=== PATIENT | female | born 1955 | race American Indian/Alaskan Native ===

== ENCOUNTER 2023-10-30 20:22 | Emergency (ER) | payer MEDICARE, OTHER ==
[2023-10-30 20:54] VITALS: BP 195/107; PULSE 84; RESP 16; TEMP 98.1
--- NOTE | 2023-10-30 23:47 | ED ---
Female Urogenital HPI - General Chief complaint: Vaginal Bleeding Stated complaint: Vaginal Bleeding Time Seen by Provider: 10/30/23 23:08 Source: patient Mode of arrival: ambulatory Limitations: no limitations - History of Present Illness Initial comments: 68-year-old female presenting to the ED with a chief complaint of the problem. History limited as patient does not speak [place] and history translated from daughter available on the phone. Patient states for the past few months has had a bump in her genital region. Reports that this is been ongoing for at least the last 3 months however patient reports some increased swelling and pain today prompting presentation to the ED for further evaluation. Patient notes that she is still able to urinate however intermittently with difficulty. No other complaints. - Related Data Allergies Allergy/AdvReac Type Severity Reaction Status Date / Time No Known Allergies Allergy Verified 10/30/23 20:41 Review of Systems ROS Statement: Those systems with pertinent positive or pertinent negative responses have been documented in the HPI. ROS Other: All systems not noted in ROS Statement are negative. Past Medical History Past Medical History: GI Bleed History of Any Multi-Drug Resistant Organisms: None Reported Past Surgical History: No Surgical Hx Reported Past Psychological History: No Psychological Hx Reported Smoking Status: Current every day smoker Past Alcohol Use History: None Reported Past Drug Use History: None Reported General Exam Limitations: no limitations General appearance: alert, in no apparent distress Neck exam: Present: normal inspection Cardiovascular Exam: Present: regular rate GI/Abdominal exam: Present: soft External exam: Present: other (Exam chaperoned by Demetria ESPOSITO. On external exam apparent large uterine prolapse. No active bleeding. ) Neurological exam: Present: alert, oriented X3 Skin exam: Present: warm, dry Course Vital Signs 10/30/23 20:35 Temperature 98.1 F Pulse Rate 84 Respiratory 16 Rate Blood Pressure 195/107 O2 Sat by Pulse 95 Oximetry Medical Decision Making - Medical Decision Making Was pt. sent in by a medical professional or institution (, PA, ADJUNCT BUSINESS INSTRUCTOR, urgent care, hospital, or jail...) When possible be specific @ -No Did you speak to anyone other than the patient for history (EMS, parent, family, police, friend...)? What history was obtained from this source @ -No Did you review nursing and triage notes (agree or disagree)? Why? @ -I reviewed and agree with nursing and triage notes Were old charts reviewed (outside hosp., previous admission, EMS record, old EKG, old radiological studies, urgent care reports/EKG's, jail records)? Report findings @ -No old charts were reviewed Differential Diagnosis (chest pain, altered mental status, abdominal pain women, abdominal pain men, vaginal bleeding, weakness, fever, dyspnea, syncope, headache, dizziness, GI bleed, back pain, seizure, CVA, palpatations, mental health, musculoskeletal)? @ -Differential Musculoskeletal Muscular strain, contusion, ligament sprain, fracture, arthritis, septic arthritis, bursitis, cellulitis, muscle spasm, nerve compression, DVT, arterial occlusion, herpes zoster, electrolyte abnormality, tumor.... This is not meant to be in all inclusive list EKG interpreted by me (3pts min.). @ -None X-rays interpreted by me (1pt min.). @ -None done CT interpreted by me (1pt min.). @ -None done U/S interpreted by me (1pt. min.). @ -None done What testing was considered but not performed or refused? (CT, X-rays, U/S, labs)? Why? @ -None What meds were considered but not given or refused? Why? @ -None Did you discuss the management of the patient with other professionals (professionals i.e. , PA, ADJUNCT BUSINESS INSTRUCTOR, lab, RT, psych nurse, drug abuse social worker, rehab spec, teacher, chief financial officer, watch caser)? Give summary @ -Case discussed with Dr. Duffy, who agrees with discharge and will see the patient outpatient. Was smoking cessation discussed for >3mins.? @ -No Was critical care preformed (if so, how long)? @ -No Were there social determinants of health that impacted care today? How? (Homelessness, low income, unemployed, alcoholism, drug addiction, trans portation, low edu. Level, literacy, decrease access to med. care, group home, rehab)? @ -No Was there de-escalation of care discussed even if they declined (Discuss DNR or withdrawal of care, Hospice)? DNR status @ -No What co-morbidities impacted this encounter? (DM, HTN, Smoking, COPD, CAD, Cancer, CVA, ARF, Chemo, Hep., AIDS, mental health diagnosis, sleep apnea, morbid obesity)? @ -None Was patient admitted / discharged? Hospital course, mention meds given and route, prescriptions, significant lab abnormalities, going to OR and other pertinent info. @ -Discharge 68-year-old female presenting to the ED with a mass for the past few months recently worsening in pain in severity the past few days. On exam, apparent uterine prolapse. No other findings. No active bleeding on exam. Patient discharged home in stable condition with referral to see TONE ARTIST APPRENTICE. Discussed return precautions with patient who verbalizes agreement. Undiagnosed new problem with uncertain prognosis? @ -No Drug Therapy requiring intensive monitoring for toxicity (Heparin, Nitro, Insulin, Cardizem)? @ -No Were any procedures done? @ -No Diagnosis/symptom? @ -Uterine prolapse Acute, or Chronic, or Acute on Chronic? @ -Acute on chronic Uncomplicated (without systemic symptoms) or Complicated (systemic symptoms)? @ -Uncomplicated Side effects of treatment? @ -No Exacerbation, Progression, or Severe Exacerbation? @ -No Poses a threat to life or bodily function? How? (Chest pain, [place], [place], pneumonia, PE, COPD, DKA, ARF, appy, cholecystitis, CVA, Diverticulitis, Homicidal, Suicidal, threat to staff... and all critical care pts) @ -No Disposition Clinical Impression: Uterine prolapse Disposition: HOME SELF-CARE Condition: Good Instructions (If sedation given, give patient instructions): Uterine Prolapse (ED) Is patient prescribed a controlled substance at d/c from ED?: No Referrals: None,Stated [Primary Care Provider] - 1-2 days Time of Disposition: 23:51
== END 2023-10-31 00:01 | disposition home or self-care (01) ==
LOC: EC 20:22
DX: N81.4 Uterovaginal prolapse, unspecified (principal); F17.200 Nicotine dependence, unspecified, uncomplicated
CPT/HCPCS: 99283

== ENCOUNTER 2024-06-03 16:08 | Inpatient (IN) | payer MEDICARE, OTHER ==
[2024-06-03] MEDS: ETOMIDATE 2 MG/ML 10 ML VIAL IVP STA (16:35)
[2024-06-03] MEDS: SUCCINYLCHOLINE CHLORIDE 200 MG/10 ML VIAL IV STA (16:36)
[2024-06-03] MEDS: fentaNYL (PF) 50 MCG/ML 2 ML AMP IVP STA ×3 (16:43→17:44)
[2024-06-03] MEDS: hydrALAZINE HCL 20 MG/ML 1 ML VIAL IVP STA (16:50)
--- NOTE | 2024-06-03 16:51 | ED ---
Altered Mental Status HPI - General Chief Complaint: Altered Mental Status Stated Complaint: AMS Time Seen by Provider: 06/03/24 16:12 Source: patient Mode of arrival: ambulatory Limitations: no limitations - History of Present Illness Initial Comments: 69-year-old female past medical history of hypertension presenting today for altered mental status status post fall. Patient was at home, at baseline when she went to the bathroom and her family heard a fall. Upon finding her patient was altered. On EMS arrival patient was intermittently agitated, confused. Shallow respirations. Nystagmus noted. Blood glucose 122. They were unable to obtain a blood pressure due to patient's intermittent agitation. Unable to emergency department patient is able to follow commands though has nystagmus, opens eyes to voice, and is breathing spontaneously. Not on blood thinners. History is limited by patient's altered mental status, Marshallese is not her first language - Related Data Home Medications Medication Instructions Recorded Confirmed Losartan/Hydrochlorothiazide 1 tab PO DAILY 06/03/24 06/03/24 [Losartan-Hctz 100-12.5 mg Tab] Allergies Allergy/AdvReac Type Severity Reaction Status Date / Time No Known Allergies Allergy Verified 06/03/24 17:15 Review of Systems ROS Statement: Those systems with pertinent positive or pertinent negative responses have been documented in the HPI. ROS Other: All systems not noted in ROS Statement are negative. Limitations: ROS unobtainable due to patients medical condition Past Medical History Past Medical History: GI Bleed History of Any Multi-Drug Resistant Organisms: None Reported Past Surgical History: No Surgical Hx Reported Past Psychological History: No Psychological Hx Reported Smoking Status: Current every day smoker Past Alcohol Use History: None Reported Past Drug Use History: None Reported General Exam - General Exam Comments Initial Comments: PE: CONSTITUTIONAL: Ill-appearing, appears confused, trying to pull IV though is redirectable, pale SKIN: Cool, dry, no jaundice, hives or petechiae EYES: Pupils are 3 equal round and reactive, horizontal leftward nystagmus, mucous membranes are intact HENT: [normocephalic hematoma to left occiput, moist mucous membranes, oropharynx clear without exudates, no evidence of tongue biting NECK: , C- Collar in place PULMONARY: Clear to auscultation without wheezes, rhonchi, or rales, normal excursion, no accessory muscle use and no stridor CARDIOVASCULAR: Regular rate, rhythm, normal S1 and S2. No appreciated murmurs, rubs or gallops. Strong radial pulses with intact distal perfusion. No lower extremity edema GASTROINTESTINAL: Soft, non-tender, non-distended, no palpable masses, no rebound or guarding. No hepatosplenomegaly GENITOURINARY: Uterine prolapse noted during urinary catheter replacement MUSCULOSKELETAL: Extremities have no gross deformity, no edema, redness, or swelling. NEUROLOGIC:_a/o x 0, GCS 10, confused, able to follow commands, moans intermittently, moves all extremities x 4 without motor or sensory deficit PSYCHIATRIC: Intermittently agitated, otherwise unable to assess Limitations: no limitations Course Vital Signs 06/03/24 06/03/24 06/03/24 16:12 16:40 19:32 Temperature Pulse Rate 70 Respiratory 18 Rate Blood Pressure 181/84 O2 Sat by Pulse 92 L Oximetry Fraction of 100 90 Inspired Oxygen (FIO2) 06/03/24 06/03/24 06/03/24 20:00 20:05 20:28 Temperature 98 F Pulse Rate 64 60 Respiratory 24 24 Rate Blood Pressure 90/55 O2 Sat by Pulse 100 100 Oximetry Fraction of 50 Inspired Oxygen (FIO2) 06/03/24 06/03/24 06/03/24 20:59 21:00 22:00 Temperature 98.0 F Pulse Rate 57 L 64 63 Respiratory 22 25 H Rate Blood Pressure 85/56 95/56 114/74 O2 Sat by Pulse 100 Oximetry Fraction of Inspired Oxygen (FIO2) 06/03/24 06/03/24 06/04/24 23:30 23:41 00:00 Temperature Pulse Rate 63 61 Respiratory 25 H 24 Rate Blood Pressure 107/68 99/63 O2 Sat by Pulse Oximetry Fraction of 50 Inspired Oxygen (FIO2) 06/04/24 06/04/24 00:30 01:00 Temperature Pulse Rate 62 59 L Respiratory 24 25 H Rate Blood Pressure 93/65 88/57 O2 Sat by Pulse Oximetry Fraction of Inspired Oxygen (FIO2) - Reevaluation(s) Reevaluation #1: Sodium 119. Patient currently receiving 1 L normal saline bolus. 06/03/24 17:34 Procedures - Central Line Placement Right Femoral Consent Obtained: emergent situation Patient Placed on Monitor/Pulse Ox: Yes Prep: mask, gown, gloves Central Line Prep: Chlorhexidine scrub, sterile drapes applied Local Anesthesia Used: Lidocaine 1% Amount of Anesthesia Used (mls): 2 Ultrasound Used for Placement: Yes Central Line Lumen Inserted: triple Bloods Obtained for Lab: No Central Line Position: good blood return, all ports aspirated, flushed, capped, sutured in place with 2-0 silk Dressing Applied: Tegaderm Patient Tolerated Procedure: well Complications: none - Intubation Sedative: Etomidate Mg Given: 20 Paralytic: Succinylcholine Mg Given: 100 Laryngoscope: [place] (glidescope) Size: 3 ET Tube Size: 7.5 ET Tube Uncuffed: No Tube Secured Depth (cm): 23 Tube Secured Location: teeth Tube Placement Confirmation: visualized tube passing through cords, equal breath sounds bilaterally, no breath sounds over epigastrium, confirmation by capnometry Patient Tolerated Procedure: well Intubation Complications: none Medical Decision Making - Medical Decision Making Was pt. sent in by a medical professional or institution (, PA, HIGH SCHOOL HOME ECONOMICS TEACHER, urgent care, hospital, or retirement...) When possible be specific @ -[No] Did you speak to anyone other than the patient for history (EMS, parent, family, police, friend...)? What history was obtained from this source @ -Spoke with EMS, patient's son-in-law and Did you review nursing and triage notes (agree or disagree)? Why? @ -[I reviewed and agree with nursing and triage notes] patient suffered fall at home, heard by family, altered when found by family, AMS on arrival to the ED Were old charts reviewed (outside hosp., previous admission, EMS record, old EKG, old radiological studies, urgent care reports/EKG's, retirement records)? Report findings @ -Patient last presented to the emergency department in October of this year for vaginal bleeding Differential Diagnosis (chest pain, altered mental status, abdominal pain women, abdominal pain men, vaginal bleeding, weakness, fever, dyspnea, syncope, headache, dizziness, GI bleed, back pain, seizure, CVA, palpatations, mental health, musculoskeletal)? @ -Differential diagnosis remains broad however top considerations includes traumatic intracranial hemorrhage, ischemic CVA, ruptured aneurysm, seizure, infection, myxedema coma, hepatic encephalopathy, electrolyte disorder, infection, hypoglycemia this is not meant to be an all-inclusive list EKG interpreted by me (3pts min.). @ -Sinus rhythm, rate 63 bpm, QT/QTc 457/464 ms, MI interval 187 ms QRS 106 ms, no ST elevatio, no arrhythmia X-rays interpreted by me (1pt min.). @ -ETT appears to be in appropriate position, no cardiomegaly, consolidations, effusions or pneumothorax CT interpreted by me (1pt min.). @ -No obvious evidence of hemorrhage, mass effect, LVO on imaging, possible area of old infarct along left medial surface of brain U/S interpreted by me (1pt. min.). @ -[None done] What testing was considered but not performed or refused? (CT, X-rays, U/S, labs)? Why? @ -[None] What meds were considered but not given or refused? Why? @ -TXA, nicardipine ordered initially 2/2 concern for traumatic intracranial hemorrhage and/or hypertensive bleed however cancelled ultimately given no evidence of either Did you discuss the management of the patient with other professionals (professionals i.e. , PA, HIGH SCHOOL HOME ECONOMICS TEACHER, lab, RT, psych nurse, social welfare research worker, lens coating technician, teacher, third officer, senior case manager)? Give summary @ -Yes, Dr. Manzano, nephrology, recs noted below, Dr. Maria E Andre, neurology, recs below and Dr. Jeanne Andre, critical care Was smoking cessation discussed for >3mins.? @ -[No] Was critical care preformed (if so, how long)? @ -Yes, 60 minutes, spent assessing patient, obtaining history from surrogates, reassessing patient, ordering and interpreting labs and imaging, ordering treatments, this time was exclusive of time spent on procedures Were there social determinants of health that impacted care today? How? (Homelessness, low income, unemployed, alcoholism, drug addiction, transportation, low edu. Level, literacy, decrease access to med. care, [place] [facility], rehab)? @ -[No] Was there de-escalation of care discussed even if they declined (Discuss DNR or withdrawal of care, Hospice)? @ -[No] What co-morbidities impacted this encounter? (DM, HTN, Smoking, COPD, CAD, Cancer, CVA, ARF, Chemo, Hep., AIDS, mental health diagnosis, sleep apnea, morbid obesity)? @ -Hypertension Was patient admitted / discharged? Hospital course, mention meds given and route, prescriptions, significant lab abnormalities, going to OR and other pertinent info. @ -[hospital course] Patient is a 69-year-old female past medical history of hypertension presenting today for altered mental status. Patient was at her baseline when she went to the bathroom, family heard a fall and found her confused. When EMS arrival patient was intermittently agitated, nystagmus was noted, moaning. C-collar was placed and patient was transferred to the ER. On initial assessment patient is GCS of 10, nystagmus present. During assessment patient's respirations became more shallow and irregular so the decision was made to intubate for airway protection. This was discussed with patient's son-in-law and at bedside. They were agreeable with plan. Level 2 trauma was activated due to u nwitnessed fall and concern that altered mental status was secondary to this. Discussed with Dr. Martin. Patient was intubated and taken to CT scanner. On Preliminary review of CT imaging, I saw no acute evidence of hemorrhage or LVO. Sodium resulted at 119, suspect patient could have seizure and hyponatremia causing her altered mental status. Normal saline bolus running. Will page neurology for further recommendations. Of note patient started on losartn- hydrochlorothiazide which she started taking on Monday. Patient's family denies any history of alcoholism, decreased food intake, excessive amounts of water intake. Spoke with Dr. Peter Andre, neurology, recommends reassessment, if patient still having nystagmus or signs of seizure give Ativan, if continues to seize will need cEEG and transfer. If no seizure activity currently can remain here for EEG tomorrow. On reassessment patient is no longer having nystagmus. Resting comfortably on ventilator. Intubated and sedated. Family at bedside. Updated them to plan for admission, hyponatremia and suspected seizures post h yponatremia. Discussed with Dr. Krause who accepts patient for admission. Discussed with Dr. Basilio Andre, critical care who accepts patient for admission. Patient to remain in ED until bed available in ICU. Recheck sodium, 122 after 1 liter normal saline. Paged nephrology for further recommendations. Discussed with Dr. Manzano, kindly recommends normals saline at 50 cc/hr, raise sodium no higher than 125, repeat BMP at midnight and in the morning. Additionally obtain TSH, serum osmolality and urine osmolality. Patient did become hypotensive with sedation. Cannot give further fluid boluses due to hyponatremia, levophed ordered. CPK elevated 1044, further fluid boluses withheld due to concern for too rapid raise in Na. Maintenance fluids have been ordered. TSH was 11. Patient was mildly hypothermic on arrival, temp 95.1 F. Cody hugger applied. Did consider myxedema coma. Patient has no pretibial edema or rales on exam. Was not hypoglycemic on arrival. Free T4 pending. T4 within normal limits. Administered 100 mcg levothyroxine due to elevated TSH. ICU team requests central line insertion due to continued need for levophed .Central line placed. Please see procedure note. Patient transferred to ICU. Undiagnosed new problem with uncertain prognosis? @ -Yes Drug Therapy requiring intensive monitoring for toxicity (Heparin, Nitro, Insulin, Cardizem)? @ -Fentanyl, propofol, Levophed Were any procedures done? @ -Intubation and central line placement Diagnosis/symptom? @ -Acute encephalopathy secondary to hyponatremia Acute, or Chronic, or Acute on Chronic? @ -Acute Uncomplicated (without systemic symptoms) or Complicated (systemic symptoms)? @ -Complicated Side effects of treatment? @ -[No] Exacerbation, Progression, or Severe Exacerbation? @ -[No] Poses a threat to life or bodily function? How? (Chest pain, [place], [place], pneumonia, PE, COPD, DKA, ARF, appy, cholecystitis, CVA, Diverticulitis, Homicidal, Suicidal, threat to staff... and all critical care pts) @ -Yes, we suspect hyponatremia because patient disease, which caused altered mental status and respiratory depression, if allowed to contiue untreated could progress to coma and - Lab Data Result diagrams: 06/04/24 05:30 06/04/24 13:00 Lab Results 06/03/24 06/03/24 06/03/24 Range/Units 16:31 16:31 16:31 WBC 12.4 H (3.8-10.6) k/uL RBC 4.57 (3.80-5.40) m/uL Hgb 13.6 (11.4-16.0) gm/dL Hct 40.2 (34.0-46.0) % MCV 88.0 (80.0-100.0) fL MCH 29.8 (25.0-35.0) pg MCHC 33.8 (31.0-37.0) g/dL RDW 12.5 (11.5-15.5) % Plt Count 307 (150-450) k/uL MPV 8.2 Neutrophils % 61 % Lymphocytes % 27 % Monocytes % 6 % Eosinophils % 4 % Basophils % 0 % Neutrophils # 7.6 (1.3-7.7) k/uL Lymphocytes # 3.4 (1.0-4.8) k/uL Monocytes # 0.7 (0-1.0) k/uL Eosinophils # 0.5 (0-0.7) k/uL Basophils # 0.0 (0-0.2) k/uL PT 12.6 H (10.0-12.5) sec INR 1.2 H (<1.2) APTT 24.3 (22.0-30.0) sec Sample Site ABG pH (7.35-7.45) ABG pCO2 (35-45) mmHg ABG HCO3 (21-25) mmol/L ABG Total CO2 (19-24) mmol/L ABG O2 Saturation (94-97) % Alex Test FiO2 % Sodium 119 L* (137-145) mmol/L Potassium 3.7 (3.5-5.1) mmol/L Chloride 87 L (98-107) mmol/L Carbon Dioxide 20 L (22-30) mmol/L Anion Gap 12 mmol/L BUN 9 (7-17) mg/dL Creatinine 0.51 L (0.52-1.04) mg/dL Est GFR (CKD-EPI)AfAm >90 (>60 ml/min/1.73 sqM) Est GFR (CKD-EPI)NonAf >90 (>60 ml/min/1.73 sqM) Glucose 112 H (74-99) mg/dL Calcium 8.8 (8.4-10.2) mg/dL Total Bilirubin 0.8 (0.2-1.3) mg/dL AST 50 H (14-36) U/L ALT 22 (4-34) U/L Alkaline Phosphatase 90 (38-126) U/L Ammonia (<30) umol/L Troponin I (0.000-0.034) ng/mL Total Protein 7.0 (6.3-8.2) g/dL Albumin 4.2 (3.5-5.0) g/dL TSH (0.465-4.680) mIU/L Free T4 (0.78-2.19) ng/dL Urine Color Urine Appearance (Clear) Urine pH (5.0-8.0) Ur Specific [place] (1.001-1.035) Urine Protein (Negative) Urine Glucose (UA) (Negative) Urine Ketones (Negative) Urine Blood (Negative) Urine Nitrite (Negative) Urine Bilirubin (Negative) Urine Urobilinogen (<2.0) mg/dL Ur Leukocyte Esterase (Negative) Urine RBC (0-5) /hpf Urine WBC (0-5) /hpf Urine Bacteria (None) /hpf Urine Mucus (None) /hpf Urine Osmolality (400-1100) mOsm/kg Ur Random Sodium (40-220) mmol/L Urine Opiates Screen (NotDetected) Ur Oxycodone Screen (NotDetected) Urine Methadone Screen (NotDetected) Ur Barbiturates Screen (NotDetected) U Tricyclic Antidepress (NotDetected) Ur Phencyclidine Scrn (NotDetected) Ur Amphetamines Screen (NotDetected) U Methamphetamines Scrn (NotDetected) U Benzodiazepines Scrn (NotDetected) Urine Cocaine Screen (NotDetected) U Marijuana (THC) Screen (NotDetected) Serum Alcohol mg/dL 06/03/24 06/03/24 06/03/24 Range/Units 16:31 17:19 17:19 WBC (3.8-10.6) k/uL RBC (3.80-5.40) m/uL Hgb (11.4-16.0) gm/dL Hct (34.0-46.0) % MCV (80.0-100.0) fL MCH (25.0-35.0) pg MCHC (31.0-37.0) g/dL RDW (11.5-15.5) % Plt Count (150-450) k/uL MPV Neutrophils % % Lymphocytes % % Monocytes % % Eosinophils % % Basophils % % Neutrophils # (1.3-7.7) k/uL Lymphocytes # (1.0-4.8) k/uL Monocytes # (0-1.0) k/uL Eosinophils # (0-0.7) k/uL Basophils # (0-0.2) k/uL PT (10.0-12.5) sec INR (<1.2) APTT (22.0-30.0) sec Sample Site ABG pH (7.35-7.45) ABG pCO2 (35-45) mmHg ABG HCO3 (21-25) mmol/L ABG Total CO2 (19-24) mmol/L ABG O2 Saturation (94-97) % Alex Test FiO2 % Sodium (137-145) mmol/L Potassium (3.5-5.1) mmol/L Chloride (98-107) mmol/L Carbon Dioxide (22-30) mmol/L Anion Gap mmol/L BUN (7-17) mg/dL Creatinine (0.52-1.04) mg/dL Est GFR (CKD-EPI)AfAm (>60 ml/min/1.73 sqM) Est GFR (CKD-EPI)NonAf (>60 ml/min/1.73 sqM) Glucose (74-99) mg/dL Calcium (8.4-10.2) mg/dL Total Bilirubin (0.2-1.3) mg/dL AST (14-36) U/L ALT (4-34) U/L Alkaline Phosphatase (38-126) U/L Ammonia (<30) umol/L Troponin I <0.012 (0.000-0.034) ng/mL Total Protein (6.3-8.2) g/dL Albumin (3.5-5.0) g/dL TSH (0.465-4.680) mIU/L Free T4 (0.78-2.19) ng/dL Urine Color Colorless Urine Appearance Clear (Clear) Urine pH 6.5 (5.0-8.0) Ur Specific [place] 1.018 (1.001-1.035) Urine Protein Trace H (Negative) Urine Glucose (UA) Negative (Negative) Urine Ketones Negative (Negative) Urine Blood Trace H (Negative) Urine Nitrite Negative (Negative) Urine Bilirubin Negative (Negative) Urine Urobilinogen <2.0 (<2.0) mg/dL Ur Leukocyte Esterase Negative (Negative) Urine RBC 3 (0-5) /hpf Urine WBC 1 (0-5) /hpf Urine Bacteria Rare H (None) /hpf Urine Mucus Rare H (None) /hpf Urine Osmolality 334 L (400-1100) mOsm/kg Ur Random Sodium (40-220) mmol/L Urine Opiates Screen Not Detected (NotDetected) Ur Oxycodone Screen Not Detected (NotDetected) Urine Methadone Screen Not Detected (NotDetected) Ur Barbiturates Screen Not Detected (NotDetected) U Tricyclic Antidepress Not Detected (NotDetected) Ur Phencyclidine Scrn Not Detected (NotDetected) Ur Amphetamines Screen Not Detected (NotDetected) U Methamphetamines Scrn Not Detected (NotDetected) U Benzodiazepines Scrn Not Detected (NotDetected) Urine Cocaine Screen Not Detected (NotDetected) U Marijuana (THC) Screen Not Detected (NotDetected) Serum Alcohol mg/dL 06/03/24 06/03/24 06/03/24 Range/Units 17:19 17:37 18:40 WBC (3.8-10.6) k/uL RBC (3.80-5.40) m/uL Hgb (11.4-16.0) gm/dL Hct (34.0-46.0) % MCV (80.0-100.0) fL MCH (25.0-35.0) pg MCHC (31.0-37.0) g/dL RDW (11.5-15.5) % Plt Count (150-450) k/uL MPV Neutrophils % % Lymphocytes % % Monocytes % % Eosinophils % % Basophils % % Neutrophils # (1.3-7.7) k/uL Lymphocytes # (1.0-4.8) k/uL Monocytes # (0-1.0) k/uL Eosinophils # (0-0.7) k/uL Basophils # (0-0.2) k/uL PT (10.0-12.5) sec INR (<1.2) APTT (22.0-30.0) sec Sample Site lrad ABG pH 7.42 (7.35-7.45) ABG pCO2 40 (35-45) mmHg ABG HCO3 26 H (21-25) mmol/L ABG Total CO2 27 H (19-24) mmol/L ABG O2 Saturation 98.8 H (94-97) % Alex Test Yes FiO2 100 % Sodium (137-145) mmol/L Potassium (3.5-5.1) mmol/L Chloride (98-107) mmol/L Carbon Dioxide (22-30) mmol/L Anion Gap mmol/L BUN (7-17) mg/dL Creatinine (0.52-1.04) mg/dL Est GFR (CKD-EPI)AfAm (>60 ml/min/1.73 sqM) Est GFR (CKD-EPI)NonAf (>60 ml/min/1.73 sqM) Glucose (74-99) mg/dL Calcium (8.4-10.2) mg/dL Total Bilirubin (0.2-1.3) mg/dL AST (14-36) U/L ALT (4-34) U/L Alkaline Phosphatase (38-126) U/L Ammonia 15 (<30) umol/L Troponin I (0.000-0.034) ng/mL Total Protein (6.3-8.2) g/dL Albumin (3.5-5.0) g/dL TSH (0.465-4.680) mIU/L Free T4 (0.78-2.19) ng/dL Urine Color Urine Appearance (Clear) Urine pH (5.0-8.0) Ur Specific [place] (1.001-1.035) Urine Protein (Negative) Urine Glucose (UA) (Negative) Urine Ketones (Negative) Urine Blood (Negative) Urine Nitrite (Negative) Urine Bilirubin (Negative) Urine Urobilinogen (<2.0) mg/dL Ur Leukocyte Esterase (Negative) Urine RBC (0-5) /hpf Urine WBC (0-5) /hpf Urine Bacteria (None) /hpf Urine Mucus (None) /hpf Urine Osmolality (400-1100) mOsm/kg Ur Random Sodium 71 (40-220) mmol/L Urine Opiates Screen (NotDetected) Ur Oxycodone Screen (NotDetected) Urine Methadone Screen (NotDetected) Ur Barbiturates Screen (NotDetected) U Tricyclic Antidepress (NotDetected) Ur Phencyclidine Scrn (NotDetected) Ur Amphetamines Screen (NotDetected) U Methamphetamines Scrn (NotDetected) U Benzodiazepines Scrn (NotDetected) Urine Cocaine Screen (NotDetected) U Marijuana (THC) Screen (NotDetected) Serum Alcohol mg/dL 06/03/24 Range/Units 18:40 WBC (3.8-10.6) k/uL RBC (3.80-5.40) m/uL Hgb (11.4-16.0) gm/dL Hct (34.0-46.0) % MCV (80.0-100.0) fL MCH (25.0-35.0) pg MCHC (31.0-37.0) g/dL RDW (11.5-15.5) % Plt Count (150-450) k/uL MPV Neutrophils % % Lymphocytes % % Monocytes % % Eosinophils % % Basophils % % Neutrophils # (1.3-7.7) k/uL Lymphocytes # (1.0-4.8) k/uL Monocytes # (0-1.0) k/uL Eosinophils # (0-0.7) k/uL Basophils # (0-0.2) k/uL PT (10.0-12.5) sec INR (<1.2) APTT (22.0-30.0) sec Sample Site ABG pH (7.35-7.45) ABG pCO2 (35-45) mmHg ABG HCO3 (21-25) mmol/L ABG Total CO2 (19-24) mmol/L ABG O2 Saturation (94-97) % Alex Test FiO2 % Sodium 122 L (137-145) mmol/L Potassium 3.2 L (3.5-5.1) mmol/L Chloride 99 (98-107) mmol/L Carbon Dioxide 21 L (22-30) mmol/L Anion Gap 2 mmol/L BUN 8 (7-17) mg/dL Creatinine 0.35 L (0.52-1.04) mg/dL Est GFR (CKD-EPI)AfAm >90 (>60 ml/min/1.73 sqM) Est GFR (CKD-EPI)NonAf >90 (>60 ml/min/1.73 sqM) Glucose 119 H (74-99) mg/dL Calcium 7.8 L (8.4-10.2) mg/dL Total Bilirubin (0.2-1.3) mg/dL AST (14-36) U/L ALT (4-34) U/L Alkaline Phosphatase (38-126) U/L Ammonia (<30) umol/L Troponin I (0.000-0.034) ng/mL Total Protein (6.3-8.2) g/dL Albumin (3.5-5.0) g/dL TSH 11.000 H (0.465-4.680) mIU/L Free T4 1.73 (0.78-2.19) ng/dL Urine Color Urine Appearance (Clear) Urine pH (5.0-8.0) Ur Specific [place] (1.001-1.035) Urine Protein (Negative) Urine Glucose (UA) (Negative) Urine Ketones (Negative) Urine Blood (Negative) Urine Nitrite (Negative) Urine Bilirubin (Negative) Urine Urobilinogen (<2.0) mg/dL Ur Leukocyte Esterase (Negative) Urine RBC (0-5) /hpf Urine WBC (0-5) /hpf Urine Bacteria (None) /hpf Urine Mucus (None) /hpf Urine Osmolality (400-1100) mOsm/kg Ur Random Sodium (40-220) mmol/L Urine Opiates Screen (NotDetected) Ur Oxycodone Screen (NotDetected) Urine Methadone Screen (NotDetected) Ur Barbiturates Screen (NotDetected) U Tricyclic Antidepress (NotDetected) Ur Phencyclidine Scrn (NotDetected) Ur Amphetamines Screen (NotDetected) U Methamphetamines Scrn (NotDetected) U Benzodiazepines Scrn (NotDetected) Urine Cocaine Screen (NotDetected) U Marijuana (THC) Screen (NotDetected) Serum Alcohol <10 mg/dL Disposition Clinical Impression: Acute encephalopathy, Fall, Hyponatremia, Acute respiratory failure Disposition: ADMITTED IP TO THIS HOSP Condition: Serious - Out of Hospital Transfer - Req. Specs Out of Hospital Transfer - Requested Specifics: Intensive Care Unit
[2024-06-03 16:58] LABS: Basophils % (A) 0 %; Eosinophils # (A) 0.5 k/uL (0-0.7); Eosinophils % (A) 4 %; HCT 40.2 % (34.0-46.0); HGB 13.6 gm/dL (11.4-16.0); Lymphocytes # (A) 3.4 k/uL (1.0-4.8); Lymphocytes % (A) 27 %; MCH 29.8 pg (25.0-35.0); MCHC 33.8 g/dL (31.0-37.0); Mean Platelet Volume 8.2; Monocytes # (A) 0.7 k/uL (0-1.0); Monocytes % (A) 6 %; Neutrophils # (A) 7.6 k/uL (1.3-7.7); Neutrophils % (A) 61 %; Platelet Count 307 k/uL (150-450); RBC 4.57 m/uL (3.80-5.40); RDW 12.5 % (11.5-15.5); WBC 12.4 k/uL (3.8-10.6)
[2024-06-03 17:02] LABS: INR 1.2 (<1.2); Partial Thromboplastin Time 24.3 sec (22.0-30.0); Prothrombin Time 12.6 sec (10.0-12.5)
--- NOTE | 2024-06-03 17:14 | XR ---
EXAMINATION TYPE: XR pelvis AP view DATE OF EXAM: 06/03/2024 5:01 PM CLINICAL INDICATION: Female, 69 years old with history of fall; COMPARISON: None TECHNIQUE: XR pelvis AP view, examined in a single projection. FINDINGS/IMPRESSION: 1. Mild step-off of the right inferior pubic ramus correlate with tenderness for fracture. 2. Mild degeneration changes of the hips. 3. The femurs appear intact.
--- NOTE | 2024-06-03 17:15 | XR ---
EXAMINATION TYPE: XR chest 1V portable DATE OF EXAM: 06/03/2024 5:01 PM CLINICAL INDICATION: Female, 69 years old with history of altered mental status; COMPARISON: None TECHNIQUE: XR chest 1V portable Frontal view of the chest. FINDINGS: Lungs/Pleura: There is no evidence of pleural effusion, focal consolidation, or pneumothorax. Pulmonary vascularity: Unremarkable. Heart/mediastinum: Cardiomediastinal silhouette is unremarkable. Musculoskeletal: No acute osseous pathology. Other findings: None IMPRESSION: No acute cardiopulmonary disease/process.
[2024-06-03 17:19] LABS: ALT 22 U/L (4-34); African American GFR (CKD) >90 (>60 ml/min/1.73 sqM); Albumin 4.2 g/dL (3.5-5.0); Anion Gap 12 mmol/L; Blood Urea Nitrogen 9 mg/dL (7-17); Calcium 8.8 mg/dL (8.4-10.2); Carbon Dioxide 20 mmol/L (22-30); Chloride 87 mmol/L (98-107); Glucose 112 mg/dL (74-99); Non-African American GFR(CKD) >90 (>60 ml/min/1.73 sqM); Total Bilirubin 0.8 mg/dL (0.2-1.3)
[2024-06-03 17:26] LABS: Sodium 119 mmol/L (137-145)
[2024-06-03 17:27] LABS: AST 50 U/L (14-36); Alkaline Phosphatase 90 U/L (38-126); Potassium 3.7 mmol/L (3.5-5.1)
--- NOTE | 2024-06-03 17:27 | CT ---
EXAMINATION TYPE: CT brain cspine wo con CT DLP: 1848 mGycm, Automated exposure control for dose reduction was used. DATE OF EXAM: 06/03/2024 5:18 PM COMPARISON: None. CLINICAL INDICATION: Female, 69 years old with history of fall; Fall, +LOC. TECHNIQUE: Brain: Multiple axial CT images of the brain were obtained without IV contrast. Cspine: Axial CT images from the skull base to the inferior aspect of T2 we obtained without intraven ous contrast. Coronal and sagittal reformatted images were also reviewed. . FINDINGS: Brain: Extra-axial spaces: No abnormal extra-axial fluid collections. Ventricular system: Within normal limits Cerebral parenchyma: Encephalomalacia in the left frontal lobe from prior injury. No acute intraparen chymal hemorrhage or mass effect. The muñoz-white junction is well differentiated. Cerebellum: Unremarkable. Mass effect: No evidence of midline shift. Intracranial vasculature: Atherosclerotic calcifications of the intracranial vessels. Soft tissues: Normal. Calvarium/osseous structures: No depressed skull fracture. Paranasal sinuses and mastoid air cells: Clear. Visualized orbits: Orbital contents are intact. Cervical spine: Fracture: None. Osseous structures: Multilevel degenerative disc disease changes with endplate spurring and disc oste ophyte complex's. Vertebral alignment: Within normal limits. Spinal canal/Neural Foramina: Disc osteophyte complexes at C4-C5, C5-C6 and C6-C7 with at least mild spinal canal stenosis. Facet joint uncovertebral joint arthropathy scattered throughout the cervical spine with varying degrees of neural foraminal stenosis. Neck soft tissues: Prevertebral soft tissues are within normal limits. Other: The airway is patent. Atherosclerosis of the carotid bifurcations. Endotracheal nasogastric tubes partially visualized. IMPRESSION: 1. No acute intracranial process. 2. Remote left frontal lobe injury. 3. No evidence of cervical spine fracture. 4. Mild multilevel degenerative disc disease.
--- NOTE | 2024-06-03 17:33 | CT ---
EXAMINATION TYPE: CT angio head neck CT DLP: combined 1848 mGycm, Automated exposure control for dose reduction was used. DATE OF EXAM: 06/03/2024 5:18 PM COMPARISON: Same day CT head. CLINICAL INDICATION: Female, 69 years old with history of fall, new neuro deficit; PHH, Fall, +LOC. TECHNIQUE: Axially acquired helical CT angiogram of the head and neck was obtained with contrast. Axi al images are supplemented with 3D reconstructions and MIP images which were post-processed at an in dependent workstation. NASCET criteria used. Contrast used:65 mL of Isovue 370 without and with IV Contrast, Oral contrast used: None. FINDINGS: Extremely limited exam due to patient motion. Nasogastric and endotracheal tubes present and appear i n satisfactory positions are visualized. CTA HEAD: No evidence of acute intracranial hemorrhage, mass effect, or midline shift. The ventricles, sulci, a nd cisterns are unremarkable. The visualized portions of the internal carotid arteries, middle cerebral arteries, anterior cerebral arteries, and posterior cerebral arteries are patent. The basilar and vertebral arteries are patent. CTA NECK: Right Carotid System: The common carotid and external carotid arteries are patent. There is less than 25% stenosis at the c arotid bifurcation secondary to calcified/noncalcified plaque. The rest of the internal carotid arter y is patent. Left Carotid System: The common carotid and external carotid arteries are patent. There is less than 25% stenosis at the c arotid bifurcation secondary to calcified/noncalcified plaque. The rest of the internal carotid arter y is patent. There is right dominant vertebral artery the left is more diminutive than hypoplastic in caliber. Mul tiple sections of motion limits evaluation the entire length of the vertebral arteries. There is a three-vessel aortic arch. There is calcification at the origin of the left subclavian kaitlin ry with up to 25-50% stenosis. Upper thorax: IMPRESSION: Extremely limited exam due to motion in some areas, given limitations: 1. No evidence of intracranial high-grade stenosis or intracranial aneurysm. 2. No evidence of dissection of the cervical internal carotid arteries or vertebral arteries or any evidence of significant stenosis at the carotid bifurcations.
[2024-06-03 17:40] LABS: Allen Test Performed? Yes
[2024-06-03 17:44] LABS: ABG HCO3 26 mmol/L (21-25); ABG PCO2 40 mmHg (35-45); ABG PH 7.42 (7.35-7.45); ABG TCO2 27 mmol/L (19-24)
[2024-06-03] MEDS: SODIUM CHLORIDE 0.9% 1,000 ML IV ONE (17:45)
[2024-06-03 17:47] LABS: ABG Oxygen Saturation 98.8 % (94-97)
[2024-06-03 17:55] LABS: Amphetamine Screen,Urine Not Detected (NotDetected); Barbiturate Screen,Urine Not Detected (NotDetected); Benzodiazepines Screen,Urine Not Detected (NotDetected); Cocaine Screen,Urine Not Detected (NotDetected); Methadone Screen, Urine Not Detected (NotDetected); Opiate Screen,Urine Not Detected (NotDetected); Oxycodone Screen, Urine Not Detected (NotDetected); Phencyclidine Screen,Urine Not Detected (NotDetected); Tricyclic Antidepressant,Urine Not Detected (NotDetected); Urn Cannabinoid Scrn Not Detected (NotDetected)
--- NOTE | 2024-06-03 17:57 | XR ---
EXAMINATION TYPE: XR chest 1V portable DATE OF EXAM: 06/03/2024 5:45 PM CLINICAL INDICATION: Female, 69 years old with history of intubation PHH COMPARISON: Chest radiographs from 06/03/2024 TECHNIQUE: XR chest 1V portable Frontal view of the chest. FINDINGS: Lungs/Pleura: There is no evidence of pleural effusion, focal consolidation, or pneumothorax. Pulmonary vascularity: Unremarkable. Heart/mediastinum: Cardiomediastinal silhouette is unremarkable. Musculoskeletal: No acute osseous pathology. Other findings: None Lines/Tubes: Endotracheal tube with distal tip 3.6 cm above the jignesh. Nasogastric tube with its distal tip and side-port projecting under the diaphragm. IMPRESSION: 1. Appropriate placement of support lines and tubes. 2. Stable exam
[2024-06-03 18:02] LABS: Appearance,Urine Clear (Clear); Bacteria,Urine Rare /hpf; Bilirubin,Urine Negative (Negative); Blood,Urine Trace (Negative); Color,Urine Colorless; Glucose,Urine (UA) Negative (Negative); Ketones,Urine Negative (Negative); Leukocyte Esterase,Urine Negative (Negative); Mucus,Urine Rare /hpf; Nitrite,Urine Negative (Negative); PH, Urine 6.5 (5.0-8.0); Protein,Urine Trace (Negative); RBC,Urine 3 /hpf (0-5); Specific Gravity,Urine 1.018 (1.001-1.035); Urobilinogen,Urine <2.0 mg/dL (<2.0); WBC,Urine 1 /hpf (0-5)
[2024-06-03] MEDS: MAGNESIUM SULFATE-D5W PMX 1 GM in DEXTROSE/WATER 1 100ML.BAG IVPB SCH (18:11)
[2024-06-03] MEDS: TRANEXAMIC ACID 1,000 MG in SODIUM CHLORIDE 0.9% 250 ML IV ONE (18:24)
[2024-06-03] MEDS: niCARdipine 20 MG in SODIUM CHLORIDE 0.9% 192 ML IV SCH (18:24)
[2024-06-03] MEDS: TRANEXAMIC 1,000 MG/100ML-NACL 1,000 MG in SALINE 1 100ML.BAG IV STA (18:24)
[2024-06-03] MEDS: THIAMINE 100 MG/ML 2 ML VIAL IM STA (18:29)
[2024-06-03 19:20] LABS: African American GFR (CKD) >90 (>60 ml/min/1.73 sqM); Alcohol <10 mg/dL; Anion Gap 2 mmol/L; Blood Urea Nitrogen 8 mg/dL (7-17); Calcium 7.8 mg/dL (8.4-10.2); Carbon Dioxide 21 mmol/L (22-30); Chloride 99 mmol/L (98-107); Glucose 119 mg/dL (74-99); Non-African American GFR(CKD) >90 (>60 ml/min/1.73 sqM); Potassium 3.2 mmol/L (3.5-5.1); Sodium 122 mmol/L (137-145)
[2024-06-03] MEDS ORDERED: Magnesium Replacement Protocol 1 EACH MISC MISCELLANE PRN (19:27)
[2024-06-03] MEDS ORDERED: Phosphorus Replacement Protoco 1 EACH MISC MISCELLANE PRN (19:27)
[2024-06-03] MEDS ORDERED: Potassium Replacement Protocol 1 EACH MISC MISCELLANE PRN (19:27)
[2024-06-03] MEDS ORDERED: MORPHINE SULFATE 2 MG/ML SYRINGE IV PRN (19:27)
[2024-06-03] MEDS ORDERED: NALOXONE 0.4 MG/ML 1 ML VIAL IV PRN (19:27)
[2024-06-03] MEDS ORDERED: LORazepam 2 MG/ML INJ IV PRN (19:27)
[2024-06-03 19:51] LABS: ABG PCO2 51 mmHg (35-45); ABG PH 7.33 (7.35-7.45); ABG PO2 379 mmHg (83-108); Allen Test Performed? Yes
[2024-06-03 19:52] LABS: ABG Base Excess 0.2 mmol/L; ABG HCO3 27 mmol/L (21-25); ABG TCO2 28 mmol/L (19-24)
[2024-06-03] MEDS: SODIUM CHLORIDE 0.9% 1,000 ML IV SCH (20:16)
[2024-06-03] MEDS: fentaNYL (PF). 1,000 MCG in SODIUM CHLORIDE 0.9% 80 ML IV SCH (20:17)
[2024-06-03] MEDS: NOREPINEPHRINE 4 MG in SODIUM CHLORIDE 0.9% 250 ML IV ONE (20:27)
[2024-06-03] MEDS: ACETAMINOPHEN IV (For NPO) 1,000 MG in SALINE 1 100ML.BAG IVPB ONE (20:34)
[2024-06-03 21:36] LABS: T4, Free (Free Thyroxine) 1.73 ng/dL (0.78-2.19)
[2024-06-04] MEDS: SODIUM CHLORIDE 0.9% 1,000 ML IV ONE (00:21)
[2024-06-04] MEDS: MIDAZOLAM 2 MG/2 ML VIAL IV ONE (00:35)
[2024-06-04] MEDS: fentaNYL (PF) 50 MCG/ML 2 ML AMP IVP STA (00:38)
[2024-06-04 01:14] LABS: Glucose,Whole Blood 140 mg/dL (70-110)
[2024-06-04] MEDS: NOREPINEPHRINE 32 MG in SODIUM CHLORIDE 0.9% 218 ML IV SCH (01:52)
[2024-06-04 02:49] LABS: African American GFR (CKD) >90 (>60 ml/min/1.73 sqM); Anion Gap 9 mmol/L; Blood Urea Nitrogen 9 mg/dL (7-17); Calcium 8.5 mg/dL (8.4-10.2); Carbon Dioxide 20 mmol/L (22-30); Chloride 94 mmol/L (98-107); Glucose 126 mg/dL (74-99); Non-African American GFR(CKD) >90 (>60 ml/min/1.73 sqM); Potassium 3.3 mmol/L (3.5-5.1); Sodium 123 mmol/L (137-145)
[2024-06-04] MEDS: VASOPRESSIN 60 UNIT in SODIUM CHLORIDE 0.9% 150 ML IV SCH (03:19)
[2024-06-04] MEDS: POTASSIUM BICARBONATE/CIT AC 20 MEQ TABLET.EFF NG-TUBE SCH (03:32)
[2024-06-04] MEDS: LEVOTHYROXINE IVP 100 MCG/5 ML VIAL IV STA (03:33)
--- NOTE | 2024-06-04 04:00 | P.CNPUL ---
History of Present Illness Consult date: 06/04/24 Requesting physician: Areli Nunez Reason for consult: other (ICU management) Chief complaint: Altered mental status, fall History of present illness: Patient is a 69-year-old white female. Past medical history is largely unknown, as the patient is currently intubated mechanical ventilator and unable to participate in interview. Apparently, patient was at home in the bathroom, family heard a crashing sound. Patient was found on the ground, altered. She was brought in via EMS, noted to be agitated and confused by ER provider. She had shallow respirations. Patient was ultimately intubated for airway protection. Initial CT of the brain and C-spine did not show any acute intracranial process. Remote left frontal lobe injury. No evidence of cervical spine fracture. Brain CTA does not show any evidence of intracranial high-grade stenosis or intracranial aneurysm. No evidence of dissection of the cervical internal carotid arteries or vertebral arteries or significant stenosis at the carotid bifurcations. Patient was felt to have possible seizure-like activity. Nystagmus was noted. She did receive a dose of Ativan in the emergency department. I am evaluating this patient in trauma bay 2. She is currently intubated mechanical ventilator. Postintubation chest x-ray shows the endotracheal tube approximately 3.6 cm above the jignesh. Nasogastric tube with the distal tip projecting underneath the diaphragm. No focal infiltrates or evidence of pneumonia. No obvious acute cardiopulmonary disease process. Postintubation chest x-ray shows a PaO2 of 379, pCO2 of 51, pH of 7.33. Current ventilator settings are assist-control, respiratory rate 16, tidal volume 350, FiO2 was dropped to 50%, and PEEP of 5. She is breathing slightly above set the rate around 18 breaths/min. No significant airway secretions. Peak pressure 23. She is sedated on a combination of propofol which is infusing at 35 mcg/kg/min as well as fentanyl at 2 mcg/kg/h. No obvious clinical signs of seizure activity. She awakes to tactile stimuli, but then falls quickly back to sleep. Does not follow any commands. Moves all 4 extremities. She is requiring high-dose norepinephrine which is currently running at 0.19 mcg/kg/min. ER physician is going to insert a central line catheter. She did receive a 1 L normal saline bolus in the emergency department. She was noted to be hyponatremic, suspect hypovolemic. Sodium level on arrival 119. Appropriate osmolality and urine studies pending. Normal saline infusing at 50 mL/h. Most recent BMP: Sodium 122, potassium 3.2, chloride 99, serum bicarb 21, BUN 8, creatinine 0.35, glucose 119. Creatinine kinase 1044. Ammonia 15. Troponin less than 0.012. TSH 11, free T4 1.73. Urinalysis not very remarkable for infection. Urine drug screen negative. Serum alcohol level less than 10. CBC: WBC count 12.4, hemoglobin 13.6, hematocrit 40.2, platelets 307. X-ray of the pelvis showed mild step-off of the right inferior pubic ramus concerning for possible fracture. Patient's condition is currently critical. Patient will be admitted to the intensive care unit as soon as bed available. Review of Systems ROS unobtainable: due to endotracheal tube Past Medical History Past Medical History: GI Bleed Additional Past Medical History / Comment(s): PROLAPSED UTERUS History of Any Multi-Drug Resistant Organisms: None Reported Past Surgical History: No Surgical Hx Reported Past Psychological History: No Psychological Hx Reported Smoking Status: Current every day smoker Past Alcohol Use History: None Reported Past Drug Use History: None Reported Medications and Allergies Home Medications Medication Instructions Recorded Confirmed Type Losartan/Hydrochlorothiazide 1 tab PO DAILY 06/03/24 06/03/24 History [Losartan-Hctz 100-12.5 mg Tab] Allergies Allergy/AdvReac Type Severity Reaction Status Date / Time No Known Allergies Allergy Verified 06/03/24 17:15 Physical Exam Vitals: Vital Signs Temp Pulse Resp BP Pulse Ox FiO2 06/04/24 02:00 55 L 16 114/80 06/04/24 01:00 59 L 25 H 88/57 06/04/24 00:30 62 24 93/65 06/04/24 00:00 61 24 99/63 06/03/24 23:41 50 06/03/24 23:30 63 25 H 107/68 06/03/24 22:00 63 114/74 100 06/03/24 21:00 64 25 H 95/56 06/03/24 20:59 98.0 F 57 L 22 85/56 06/03/24 20:28 50 06/03/24 20:05 98 F 60 24 100 06/03/24 20:00 64 24 90/55 100 06/03/24 19:32 90 06/03/24 16:46 100 06/03/24 16:40 100 06/03/24 16:12 70 18 181/84 92 L Intake and Output 06/03/24 06/03/24 06/04/24 14:59 22:59 06:59 Intake Total 174.775 215.613 Output Total 700 Balance 174.775 -484.387 Intake: Intake, IV Titration 174.775 215.613 Amount Norepinephrine 4 mg In 94.107 Sodium Chloride 0.9% 250 ml @ 0.03 MCG/KG/MIN 8. 295 mls/hr IV .Q24H [facility] Rx#:[id number] Sodium Chloride 0.9% 1, 100 000 ml @ 50 mls/hr IV . Q20H [facility] Rx#:[id number] fentaNYL (PF). 1,000 mcg 21.409 44.996 In Sodium Chloride 0.9% 80 ml @ 0.5 MCG/KG/HR 3. 629 mls/hr IV .Q24H [facility] Rx#:[id number] propofoL 1,000 mg In 59.259 70.617 Empty Bag 1 bag @ 20 MCG/ KG/MIN 8.709 mls/hr IV . [id number] [facility] Rx#:[id number] Output: Urine 700 Other: Weight 72.575 kg 72.575 kg GENERAL EXAM: Sedated 69-year-old white female, intubated mechanical ventilator, awakens to tactile stimuli, no clinical seizure-like activity noted. HEAD: Normocephalic and atraumatic EYES: Normal reaction of pupils, equal size. Pupils midline. No nystagmus. NOSE: Clear with pink turbinates. No obvious signs of tongue biting. THROAT: No erythema or exudates. NECK: No masses, no JVD. CHEST: No chest wall deformity. LUNGS: Equal air entry with no crackles, wheeze, rhonchi or dullness. Intubated to the mechanical ventilator. CVS: S1 and S2 normal with no audible murmur, regular rhythm. No extra heart sounds ABDOMEN: No hepatosplenomegaly, active bowel sounds, no guarding or rigidity. SPINE: No scoliosis or deformity SKIN: No rashes. Complete urogenital prolapse CENTRAL NERVOUS SYSTEM: Sedated, opens eyes to tactile stimuli, withdraws from pain in all 4 extremities. No obvious seizure-like activity noted. EXTREMITIES: There is no peripheral edema, clubbing, or cyanosis. Peripheral pulses are intact. Results - Laboratory Findings CBC and BMP: 06/03/24 16:31 06/04/24 01:33 ABG ABG pH 7.33 (7.35-7.45) L 06/03/24 19:36 ABG pCO2 51 mmHg (35-45) H 06/03/24 19:36 ABG pO2 379 mmHg (83-108) H 06/03/24 19:36 ABG O2 Saturation 100.0 % (94-97) H 06/03/24 19:36 PT/INR, D-dimer PT 12.6 sec (10.0-12.5) H 06/03/24 16:31 INR 1.2 (<1.2) H 06/03/24 16:31 Abnormal lab findings: Abnormal Labs 06/03/24 06/03/24 06/03/24 16:31 16:31 16:31 WBC 12.4 H PT 12.6 H INR 1.2 H ABG pH ABG pCO2 ABG pO2 ABG HCO3 ABG Total CO2 ABG O2 Saturation Sodium 119 L* Potassium Chloride 87 L Carbon Dioxide 20 L Creatinine 0.51 L Glucose 112 H POC Glucose (mg/dL) Calcium AST 50 H Creatine Kinase TSH Urine Protein Urine Blood Urine Bacteria Urine Mucus 06/03/24 06/03/24 06/03/24 17:19 17:37 18:40 WBC PT INR ABG pH ABG pCO2 ABG pO2 ABG HCO3 26 H ABG Total CO2 27 H ABG O2 Saturation 98.8 H Sodium 122 L Potassium 3.2 L Chloride Carbon Dioxide 21 L Creatinine 0.35 L Glucose 119 H POC Glucose (mg/dL) Calcium 7.8 L AST Creatine Kinase TSH 11.000 H Urine Protein Trace H Urine Blood Trace H Urine Bacteria Rare H Urine Mucus Rare H 06/03/24 06/03/24 06/04/24 19:36 21:17 01:13 WBC PT INR ABG pH 7.33 L ABG pCO2 51 H ABG pO2 379 H ABG HCO3 27 H ABG Total CO2 28 H ABG O2 Saturation 100.0 H Sodium Potassium Chloride Carbon Dioxide Creatinine Glucose POC Glucose (mg/dL) 140 H Calcium AST Creatine Kinase 1044 H* TSH Urine Protein Urine Blood Urine Bacteria Urine Mucus - Diagnostic Findings Chest x-ray: image reviewed Assessment and Plan Assessment: Fall, Initial CT of the brain and C-spine did not show any acute intracranial process. Remote left frontal lobe injury. No evidence of cervical spine fracture. Brain CTA does not show any evidence of intracranial high-grade stenosis or intracranial aneurysm. No evidence of dissection of the cervical internal carotid arteries or vertebral arteries or significant stenosis at the carotid bifurcations. X-ray of the pelvis showed mild step-off of the right inferior pubic ramus concerning for possible fracture. Altered mental status, unable to rule out possible seizure, intubated for airway protection in the emergency department Mechanical ventilator management Hyponatremia, possible hypovolemic Hypotension and shock, currently requiring vasopressors in the form of norepinephrine Sinus bradycardia, possibly secondary to medication effect and propofol Subclinical hypothyroidism, with elevated TSH level and normal free T4, given a dose of IV push Synthroid in the emergency department Hypokalemia, being replaced per protocol Female genital prolapse unspecified Plan: Medications, labs, imaging reviewed Continue on mechanical ventilator at this time with current ventilator settings Chest x-ray noted. ABGs noted. No further seizure activity at this time. As needed Ativan ordered in case needed for seizure termination. Initiate seizure precautions. Neurology consulted. EEG ordered for the morning. CT of the brain noted. Hyponatremia to be managed by nephrology. Urine and osmolality studies pending. Patient remains hypotensive, currently requiring vasopressor support. Patient was given additional liter crystalloid fluid bolus. Central line access established by ER provider. Will also insert arterial line for continuous BP monitoring. No definitive evidence of infection/sepsis Obtain transthoracic echocardiogram Protonix for GI prophylaxis Heparin for DVT prophylaxis Patient's condition is currently critical, and she is being admitted to the intensive care unit. We will continue to follow and further recommendations are forthcoming. I have personally seen and examined the patient, performed the documentation and the assessment and plan as written. Number of minutes spent on the visit:20 Time with Patient: Greater than 30
--- NOTE | 2024-06-04 04:03 | P.PCN ---
Date of Procedure: 06/04/24 Preoperative Diagnosis: Hypotension and shock Postoperative Diagnosis: Hypotension and shock Procedure(s) Performed: Insertion of a right wrist radial arterial line Indications for Procedure: Continuous blood pressure monitoring and frequent blood draws Description of Procedure: Informed consent was obtained, and a procedural timeout was performed . The patient was placed in supine position. The right radial region was prepared in a sterile fashion, and a sterile drape was applied. The right radial artery was palpated, easily cannulated, and a guidewire was placed. A Cook catheter was inserted over the guidewire, and the guidewire was removed. There was good arterial blood flow, good arterial waveform, and no complications. The line was secured with using a 3-0 silk suture.
[2024-06-04 04:11] LABS: ABG Base Excess -1.6 mmol/L; ABG HCO3 25 mmol/L (21-25); ABG Oxygen Saturation 99.6 % (94-97); ABG PCO2 48 mmHg (35-45); ABG PH 7.33 (7.35-7.45); ABG PO2 182 mmHg (83-108); ABG TCO2 26 mmol/L (19-24)
[2024-06-04 04:17] LABS: Allen Test Performed? No
[2024-06-04 05:41] LABS: Basophils % (A) 0 %; Eosinophils # (A) 0.3 k/uL (0-0.7); Eosinophils % (A) 2 %; HCT 38.4 % (34.0-46.0); HGB 12.8 gm/dL (11.4-16.0); Lymphocytes # (A) 1.6 k/uL (1.0-4.8); Lymphocytes % (A) 13 %; MCHC 33.2 g/dL (31.0-37.0); MCV 90.3 fL (80.0-100.0); Mean Platelet Volume 8.1; Monocytes # (A) 0.6 k/uL (0-1.0); Monocytes % (A) 5 %; Neutrophils # (A) 9.4 k/uL (1.3-7.7); Neutrophils % (A) 79 %; Platelet Count 295 k/uL (150-450); RBC 4.25 m/uL (3.80-5.40); RDW 12.9 % (11.5-15.5)
[2024-06-04 05:54] LABS: African American GFR (CKD) >90 (>60 ml/min/1.73 sqM); Anion Gap 5 mmol/L; Blood Urea Nitrogen 10 mg/dL (7-17); Calcium 8.6 mg/dL (8.4-10.2); Carbon Dioxide 25 mmol/L (22-30); Chloride 94 mmol/L (98-107); Glucose 114 mg/dL (74-99); Magnesium 2.6 mg/dL (1.6-2.3); Non-African American GFR(CKD) >90 (>60 ml/min/1.73 sqM); Phosphorus 4.7 mg/dL (2.5-4.5); Potassium 4.9 mmol/L (3.5-5.1); Sodium 124 mmol/L (137-145)
[2024-06-04 05:56] LABS: Glucose,Whole Blood 104 mg/dL (70-110)
--- NOTE | 2024-06-04 07:24 | XR ---
EXAMINATION TYPE: XR chest 1V DATE OF EXAM: 06/04/2024 COMPARISON: 06/03/2024 HISTORY: 69-year-old female intubated TECHNIQUE: Single frontal view of the chest is obtained. FINDINGS: ET and NG tubes are satisfactory. Heart upper limits of normal in size. Similar strandy at electasis at the left lower lung. No other consolidation or pleural effusion. IMPRESSION: Stable exam with some strandy left basilar atelectasis.
[2024-06-04] MEDS ORDERED: HYDROmorphone 1 MG/ML 1 ML SYRINGE IVP PRN (08:35)
[2024-06-04 09:05] LABS: African American GFR (CKD) >90 (>60 ml/min/1.73 sqM); Anion Gap 1 mmol/L; Blood Urea Nitrogen 8 mg/dL (7-17); Calcium 8.3 mg/dL (8.4-10.2); Carbon Dioxide 25 mmol/L (22-30); Chloride 100 mmol/L (98-107); Glucose 118 mg/dL (74-99); Non-African American GFR(CKD) >90 (>60 ml/min/1.73 sqM); Potassium 4.1 mmol/L (3.5-5.1); Sodium 126 mmol/L (137-145)
[2024-06-04] MEDS: PANTOPRAZOLE 40 MG/10 ML VIAL IV SCH (09:05)
[2024-06-04] MEDS: HEPARIN SODIUM,PORCINE 5,000 UNIT/ML 1 ML VIAL SQ SCH (09:05)
--- NOTE | 2024-06-04 10:16 | P.NPCON ---
History of Present Illness - Reason for Consult hyponatremia - History of Present Illness Reason for consultation: Hyponatremia History of present illness: Patient is a 69-year-old female seen in renal consultation for hyponatremia. Patient was brought to the hospital due to altered mental status. Patient sustained a fall at home. There was also concern for seizure. It is noted the patient was taking thiazide diuretic outpatient. Sodium level on admission was 119 dated June 03, 2024 at 4:31 PM. Patient received 1 L bolus of normal saline and repeat sodium level was 122. She has been receiving normal saline at 50 cc an hour since then sodium level at 845 this morning was 126. Patient is c urrently intubated. She is also on Levophed. Potassium was low initially and was replaced. It was 4.1 this morning. Vital signs are stable. On vasopressor support. General: Resting in bed. HEENT: Intubated. LUNGS: No audible rhonchi or wheezes. HEART: Rate and Rhythm are regular. ABDOMEN: Nontender. EXTREMITITES: No edema. Past Medical History Past Medical History: GI Bleed Additional Past Medical History / Comment(s): PROLAPSED UTERUS History of Any Multi-Drug Resistant Organisms: None Reported Past Surgical History: No Surgical Hx Reported Past Psychological History: No Psychological Hx Reported Smoking Status: Current every day smoker Past Alcohol Use History: None Reported Past Drug Use History: None Reported Medications and Allergies Home Medications Medication Instructions Recorded Confirmed Type Losartan/Hydrochlorothiazide 1 tab PO DAILY 06/03/24 06/03/24 History [Losartan-Hctz 100-12.5 mg Tab] Allergies Allergy/AdvReac Type Severity Reaction Status Date / Time No Known Allergies Allergy Verified 06/03/24 17:15 Physical Exam Vitals: Vital Signs Temp Pulse Pulse Resp BP Pulse Ox FiO2 06/04/24 07:42 40 06/04/24 07:00 59 L 15 100 06/04/24 06:45 60 15 100 06/04/24 06:30 61 16 100 06/04/24 06:15 61 15 100 06/04/24 06:00 60 15 100 06/04/24 05:45 59 L 14 100 06/04/24 05:30 61 14 100 06/04/24 05:15 57 L 16 06/04/24 05:00 58 L 14 100 06/04/24 04:45 57 L 15 99 06/04/24 04:36 40 06/04/24 04:30 55 L 15 100 06/04/24 04:15 52 L 16 100 06/04/24 04:00 97.3 F L 51 L 51 L 16 100 50 06/04/24 03:59 50 06/04/24 03:45 50 L 15 100 06/04/24 03:30 49 L 14 100 06/04/24 03:23 49 L 16 100 06/04/24 02:00 97.3 F L 55 L 16 114/80 06/04/24 01:00 59 L 25 H 88/57 06/04/24 00:30 62 24 93/65 06/04/24 00:00 61 24 99/63 06/03/24 23:41 50 06/03/24 23:30 63 25 H 107/68 06/03/24 22:00 63 114/74 100 06/03/24 21:00 64 25 H 95/56 06/03/24 20:59 98.0 F 57 L 22 85/56 06/03/24 20:28 50 06/03/24 20:05 98 F 60 24 100 06/03/24 20:00 64 24 90/55 100 06/03/24 19:32 90 06/03/24 16:46 100 06/03/24 16:40 100 06/03/24 16:12 70 18 181/84 92 L Intake and Output 06/03/24 06/04/24 06/04/24 22:59 06:59 14:59 Intake Total 174.775 461.355 99.475 Output Total 890 45 Balance 174.775 -428.645 54.475 Intake: Intake, IV Titration 174.775 461.355 99.475 Amount Norepinephrine 32 mg In 22.227 Sodium Chloride 0.9% 218 ml @ 0.03 MCG/KG/MIN 1. 021 mls/hr IV .Q24H [facility] Rx#:[id number] Norepinephrine 4 mg In 94.107 Sodium Chloride 0.9% 250 ml @ 0.03 MCG/KG/MIN 8. 295 mls/hr IV .Q24H [facility] Rx#:[id number] Sodium Chloride 0.9% 1, 300 50 000 ml @ 50 mls/hr IV . Q20H [facility] Rx#:[id number] fentaNYL (PF). 1,000 mcg 21.409 44.996 49.475 In Sodium Chloride 0.9% 80 ml @ 0.5 MCG/KG/HR 3. 629 mls/hr IV .Q24H [facility] Rx#:[id number] propofoL 1,000 mg In 59.259 94.132 Empty Bag 1 bag @ 20 MCG/ KG/MIN 8.709 mls/hr IV . [id number] [facility] Rx#:[id number] Output: Urine 890 45 Other: Voiding Method Indwelling Catheter Weight 72.575 kg 66.2 kg ABP, PAP, CO, CI - Last 8 Hours Arterial Blood Pressure 112/49 Arterial Blood Pressure 120/50 Arterial Blood Pressure 127/57 Arterial Blood Pressure 131/58 Arterial Blood Pressure 125/54 Arterial Blood Pressure 133/57 Arterial Blood Pressure 132/54 Arterial Blood Pressure 125/63 Arterial Blood Pressure 119/55 Arterial Blood Pressure 129/54 Arterial Blood Pressure 130/54 Arterial Blood Pressure 123/53 Arterial Blood Pressure 117/48 Arterial Blood Pressure 125/53 Arterial Blood Pressure 110/48 Arterial Blood Pressure 121/51 Results - Lab Results Most recent lab results ABG pH 7.33 (7.35-7.45) L 06/04/24 04:10 ABG pCO2 48 mmHg (35-45) H 06/04/24 04:10 ABG pO2 182 mmHg (83-108) H 06/04/24 04:10 ABG HCO3 25 mmol/L (21-25) 06/04/24 04:10 ABG O2 Saturation 99.6 % (94-97) H 06/04/24 04:10 Calcium 8.3 mg/dL (8.4-10.2) L 06/04/24 08:45 Phosphorus 4.7 mg/dL (2.5-4.5) H 06/04/24 05:30 Magnesium 2.6 mg/dL (1.6-2.3) H 06/04/24 05:30 06/04/24 05:30 06/04/24 08:45 Assessment and Plan Plan: Assessment: 1. Hypovolemic hyponatremia improved with normal saline. Also component of thiazide diuretic use. Sodium level 119 on admission and is 126 this morning. Urine sodium 71 and urine osmolality 334. TSH elevated at 11. Free T4 normal. 2. Status post fall. 3. Altered mental status possibly from hyponatremia and questionable seizure. 4. Hypotension maintained on Levophed. 5. Hypokalemia from diuretic use. Replaced. Improved. Plan: Hep-Lock IV fluids for now. Repeat sodium level at noon. Follow-up cortisol level. Wean FiO2 and vasopressors. Avoid thiazide diuretics. Thank you for the consultation. I will continue to follow the patient with you during her hospital stay.
[2024-06-04] MEDS: IPRATROPIUM-ALBUTEROL 3 ML NEB INHALATION SCH (11:29)
[2024-06-04 11:41] LABS: Glucose,Whole Blood 103 mg/dL (70-110)
[2024-06-04] MEDS: CHLORHEXIDINE GLUCONATE 15 ML CUP MUCOUS MEM SCH (12:06)
--- NOTE | 2024-06-04 13:18 | CA ---
Transthoracic Echo Report Name: Lana Dsouza Age: 69 Gender: F : 1955 Exam Date: 06/04/2024 08:56 Exam Location: [facility] Ht (in): 64 Wt (lb): 160 Ordering Physician: Salty Wilson Attending/Referring Phys: Business Advisor Bertha Leyva RDCS Procedure CPT: Indications: evaluate LV function Cardiac Hx: Technical Quality: Fair Contrast 1: Total Dose (mL): Contrast 2: Total Dose (mL): MEASUREMENTS (Male / Female) Normal Values 2D ECHO LV Diastolic Diameter PLAX 4.0 cm 4.2 - 5.9 / 3.9 - 5.3 cm LV Systolic Diameter PLAX 1.9 cm IVS Diastolic Thickness 1.6 cm 0.6 - 1.0 / 0.6 - 0.9 cm LVPW Diastolic Thickness 1.1 cm 0.6 - 1.0 / 0.6 - 0.9 cm LV Relative Wall Thickness 0.7 RV Internal Dim ED PLAX 3.4 cm LA Volume 52.4 cm??? 18 - 58 / 22 - 52 cm??? LA Volume Index 28.7 cm???/m??? 16 - 28 cm???/m??? M-MODE Aortic Root Diameter MM 3.1 cm LA Systolic Diameter MM 4.0 cm LA Ao Ratio MM 1.3 AV Cusp Separation MM 1.7 cm DOPPLER AV Peak Velocity 207.9 cm/s AV Peak Gradient 17.3 mmHg AV Mean Velocity 131.9 cm/s AV Mean Gradient 8.1 mmHg AV Velocity Time Integral 35.1 cm LVOT Peak Velocity 157.1 cm/s LVOT Peak Gradient 9.9 mmHg LVOT Velocity Time Integral 30.8 cm MV Area PHT 3.1 cm??? Mitral E Point Velocity 64.8 cm/s Mitral A Point Velocity 121.6 cm/s Mitral E to A Ratio 0.5 MV Deceleration Time 248.4 ms MV E' Velocity 7.4 cm/s Mitral E to MV E' Ratio 8.7 TR Peak Velocity 273.9 cm/s TR Peak Gradient 30.0 mmHg Right Ventricular Systolic Press 34.7 mmHg FINDINGS Left Ventricle Moderately increased left ventricular wall thickness. Left ventricular cavity size normal. Normal left ventricular systolic function with no obvious regional wall motion abnormalities. Left ventricular ejection fraction is estimated at 55-60 %. Grade 1 diastolic dysfunction. Right Ventricle Normal right ventricular size and function. Right ventricular systolic pressure within normal limits. Right Atrium Normal right atrial size. Left Atrium Mild left atrial dilatation. Mitral Valve Structurally normal mitral valve. Mitral valve thickened. Mild mitral annular calcification. Mild mitral regurgitation. Aortic Valve Trileaflet aortic valve. Mild aortic stenosis with a peak gradient of 17 mmHg and a mean gradient of 8 mmHg. Trace aortic regurgitation. Tricuspid Valve Structurally normal tricuspid valve. Mild tricuspid regurgitation. Pulmonic Valve Structurally normal pulmonic valve. Trace pulmonic regurgitation. Pericardium No pericardial effusion. Aorta Normal size aortic root and proximal ascending aorta. CONCLUSIONS Moderately increased left ventricular wall thickness Left ventricular ejection fraction 55-60% RVSP 35 Mild mitral regurgitation Mild aortic stenosis Mild tricuspid regurgitation Previewed by: Dr. Dennis Cueva DO (Electronically Signed) Final Date: 04 June 2024 13:18
--- NOTE | 2024-06-04 13:50 | P.CNNES ---
History of Present Illness Consult date: 06/04/27 Requesting physician: Areli Nunez Reason for Consult: seizure History of Present Illness: This is a 69-year-old woman with history of hypertension who was not in agreement of being on any medication for her blood pressure until in the last several days presents emergency department because of confusion. History is o btained from the patient's and son-in-law who are at bedside. According to the yesterday he heard the patient had a scream she was in the bath and also then she fell down on the ground. When she was on the floor patient was awake but was not following commands. She was moving extremities spontaneously. No jerking of extremities that noticed. It was not vocalizing. Patient does not have any history of seizures in the past. Patient does not have any history of stroke that patient is aware of. Does have underlying history of hypertension that for years and refused to be on medication and prefers to be on diet but recently was placed on medication since she is going to have surgery for her uterine prolapse. It seems that she was placed on losartan/hydrochlorothiazide recently and she took first a couple of days. Per the ED physician patient had gaze deviation and there is a concern about a seizure. Her sodium was noted to be 119 on presentation. Patient was given Ativan in the ED. ED the patient was intubated on the ventilator. She is on IV propofol Some of the other work-up in our facility consisted of: Patient was afebrile on presentation. white Blood cell is 12.4 on presentation. Ammonia is 50 CK level is 1444 TSH is 11 Free T4 is 1.73 Reviewed the rest of the lab work CT of the head is reported as no acute intracranial process. Remote left frontal lobe injury. Personally reviewed the CT and I agree that the patient does have an old left frontal lobe injury next CT cervical spine is reported as no evidence cervical spine fracture. Mild multilevel degenerative disc disease. Neck CT angiography of the head and neck is reported as extremely limited exam due to motion and some areas given limitations no evidence of intracranial high-grade stenosis or intracranial aneurysm. No evidence of dissection cervical internal carotid artery or vertebral artery or any evidence of significant stenosis at the carotid bifurcation 2D echo was reported as moderately increased left ventricle wall thickness. Ejection fraction of 55-60. Review of Systems Limited but the positive and negative as per HPI. Past Medical History Past Medical History: GI Bleed Additional Past Medical History / Comment(s): PROLAPSED UTERUS History of Any Multi-Drug Resistant Organisms: None Reported Past Surgical History: No Surgical Hx Reported Past Psychological History: No Psychological Hx Reported Smoking Status: Current every day smoker Past Alcohol Use History: None Reported Past Drug Use History: None Reported Medications and Allergies Home Medications Medication Instructions Recorded Confirmed Type Losartan/Hydrochlorothiazide 1 tab PO DAILY 06/03/24 06/03/24 History [Losartan-Hctz 100-12.5 mg Tab] Allergies Allergy/AdvReac Type Severity Reaction Status Date / Time No Known Allergies Allergy Verified 06/03/24 17:15 Physical Examination - Vital Signs Vital Signs: Vital Signs Temp Pulse Pulse Resp BP Pulse Ox FiO2 06/04/24 12:00 69 06/04/24 11:34 67 06/04/24 11:30 76 22 100 06/04/24 11:29 40 06/04/24 11:15 65 17 99 06/04/24 11:00 61 14 100 06/04/24 10:56 40 06/04/24 10:45 61 16 100 06/04/24 10:30 60 16 100 06/04/24 10:15 61 16 100 06/04/24 10:00 60 16 100 06/04/24 09:45 60 16 100 06/04/24 09:30 61 15 100 06/04/24 09:15 60 16 99 06/04/24 09:00 59 L 14 100 06/04/24 08:45 60 16 99 06/04/24 08:30 59 L 16 99 06/04/24 08:15 60 16 99 06/04/24 08:00 100.0 F H 60 16 99 40 06/04/24 07:45 61 15 100 06/04/24 07:42 40 06/04/24 07:30 59 L 15 100 06/04/24 07:15 59 L 15 06/04/24 07:00 59 L 15 100 06/04/24 06:45 60 15 100 06/04/24 06:30 61 16 100 06/04/24 06:15 61 15 100 06/04/24 06:00 60 15 100 06/04/24 05:45 59 L 14 100 06/04/24 05:30 61 14 100 06/04/24 05:15 57 L 16 06/04/24 05:00 58 L 14 100 08/27/24 04:45 57 L 15 99 06/04/24 04:36 40 06/04/24 04:30 55 L 15 100 06/04/24 04:15 52 L 16 100 06/04/24 04:00 97.3 F L 51 L 51 L 16 100 50 06/04/24 03:59 50 06/04/24 03:45 50 L 15 100 06/04/24 03:30 49 L 14 100 06/04/24 03:23 49 L 16 100 06/04/24 02:00 97.3 F L 55 L 16 114/80 06/04/24 01:00 59 L 25 H 88/57 06/04/24 00:30 62 24 93/65 06/04/24 00:00 61 24 99/63 06/03/24 23:41 50 06/03/24 23:30 63 25 H 107/68 06/03/24 22:00 63 114/74 100 06/03/24 21:00 64 25 H 95/56 06/03/24 20:59 98.0 F 57 L 22 85/56 06/03/24 20:28 50 06/03/24 20:05 98 F 60 24 100 06/03/24 20:00 64 24 90/55 100 06/03/24 19:32 90 06/03/24 16:40 100 06/03/24 16:12 70 18 181/84 92 L Intake and Output 06/03/24 06/04/24 06/04/24 22:59 06:59 14:59 Intake Total 174.775 461.355 364.602 Output Total 890 250 Balance 174.775 -428.645 114.602 Intake: IV 200 Sodium Chloride 0.9% 1, 200 000 ml @ 50 mls/hr IV . Q20H [facility] Rx#:[id number] Intake, IV Titration 174.775 461.355 124.602 Amount Norepinephrine 32 mg In 22.227 25.127 Sodium Chloride 0.9% 218 ml @ 0.03 MCG/KG/MIN 1. 021 mls/hr IV .Q24H [facility] Rx#:[id number] Norepinephrine 4 mg In 94.107 Sodium Chloride 0.9% 250 ml @ 0.03 MCG/KG/MIN 8. 295 mls/hr IV .Q24H [facility] Rx#:[id number] Sodium Chloride 0.9% 1, 300 50 000 ml @ 50 mls/hr IV . Q20H [facility] Rx#:[id number] fentaNYL (PF). 1,000 mcg 21.409 44.996 49.475 In Sodium Chloride 0.9% 80 ml @ 0.5 MCG/KG/HR 3. 629 mls/hr IV .Q24H [facility] Rx#:[id number] propofoL 1,000 mg In 59.259 94.132 Empty Bag 1 bag @ 20 MCG/ KG/MIN 8.709 mls/hr IV . [id number] [facility] Rx#:[id number] Tube Feeding 10 Other 30 Output: Urine 890 250 Other: Voiding Method Indwelling Catheter Indwelling Catheter Weight 72.575 kg 66.2 kg 66.2 kg ABP, PAP, CO, CI - Last 8 Hours Arterial Blood Pressure 161/51 Arterial Blood Pressure 138/50 Arterial Blood Pressure 137/50 Arterial Blood Pressure 137/50 Arterial Blood Pressure 132/49 Arterial Blood Pressure 121/44 Arterial Blood Pressure 106/42 Arterial Blood Pressure 97/39 Arterial Blood Pressure 117/47 Arterial Blood Pressure 117/49 Arterial Blood Pressure 124/48 Arterial Blood Pressure 131/48 Arterial Blood Pressure 119/47 Arterial Blood Pressure 120/47 Arterial Blood Pressure 116/46 Arterial Blood Pressure 123/50 Arterial Blood Pressure 110/46 Arterial Blood Pressure 115/49 Arterial Blood Pressure 112/49 Arterial Blood Pressure 120/50 Arterial Blood Pressure 127/57 Arterial Blood Pressure 131/58 Arterial Blood Pressure 125/54 Arterial Blood Pressure 133/57 General: Lying in bed and does not appear in acute distress. Lung: Intubated on ventilator Neuro: Limited and is on IV Propofol 30mcg/kg/min. Is moderate drowsy but is awakeable to voice. She is able to follow simple commands, showing thumbs up and wiggling toes. Is also moving EOM to command looking to right and left. Pupils are round, equal and reactive to light. Pupils are 3-4mm bilaterally. No facial weakness. Motor: Strength is hard to assess because of cooperation. Plantars are mute bilaterally. Results - Laboratory Findings CBC and BMP: 06/04/24 05:30 06/04/24 16:56 Abnormal Lab Findings: Abnormal Labs 06/03/24 06/03/24 06/03/24 16:31 16:31 16:31 WBC 12.4 H Neutrophils # PT 12.6 H INR 1.2 H ABG pH ABG pCO2 ABG pO2 ABG HCO3 ABG Total CO2 ABG O2 Saturation Sodium 119 L* Potassium Chloride 87 L Carbon Dioxide 20 L Creatinine 0.51 L Glucose 112 H POC Glucose (mg/dL) Calcium Phosphorus Magnesium AST 50 H Creatine Kinase TSH Urine Protein Urine Blood Urine Bacteria Urine Mucus Urine Osmolality 06/03/24 06/03/24 06/03/24 17:19 17:19 17:37 WBC Neutrophils # PT INR ABG pH ABG pCO2 ABG pO2 ABG HCO3 26 H ABG Total CO2 27 H ABG O2 Saturation 98.8 H Sodium Potassium Chloride Carbon Dioxide Creatinine Glucose POC Glucose (mg/dL) Calcium Phosphorus Magnesium AST Creatine Kinase TSH Urine Protein Trace H Urine Blood Trace H Urine Bacteria Rare H Urine Mucus Rare H Urine Osmolality 334 L 06/03/24 06/03/24 06/03/24 18:40 19:36 21:17 WBC Neutrophils # PT INR ABG pH 7.33 L ABG pCO2 51 H ABG pO2 379 H ABG HCO3 27 H ABG Total CO2 28 H ABG O2 Saturation 100.0 H Sodium 122 L Potassium 3.2 L Chloride Carbon Dioxide 21 L Creatinine 0.35 L Glucose 119 H POC Glucose (mg/dL) Calcium 7.8 L Phosphorus Magnesium AST Creatine Kinase 1044 H* TSH 11.000 H Urine Protein Urine Blood Urine Bacteria Urine Mucus Urine Osmolality 06/04/24 06/04/24 06/04/24 01:13 01:33 04:10 WBC Neutrophils # PT INR ABG pH 7.33 L ABG pCO2 48 H ABG pO2 182 H ABG HCO3 ABG Total CO2 26 H ABG O2 Saturation 99.6 H Sodium 123 L Potassium 3.3 L Chloride 94 L Carbon Dioxide 20 L Creatinine Glucose 126 H POC Glucose (mg/dL) 140 H Calcium Phosphorus Magnesium AST Creatine Kinase TSH Urine Protein Urine Blood Urine Bacteria Urine Mucus Urine Osmolality 06/04/24 06/04/24 06/04/24 05:30 05:30 07:55 WBC 12.0 H Neutrophils # 9.4 H PT INR ABG pH ABG pCO2 ABG pO2 ABG HCO3 ABG Total CO2 ABG O2 Saturation Sodium 124 L 135 L Potassium Chloride 94 L Carbon Dioxide Creatinine Glucose 114 H POC Glucose (mg/dL) Calcium Phosphorus 4.7 H Magnesium 2.6 H AST Creatine Kinase TSH Urine Protein Urine Blood Urine Bacteria Urine Mucus Urine Osmolality 06/04/24 08:45 WBC Neutrophils # PT INR ABG pH ABG pCO2 ABG pO2 ABG HCO3 ABG Total CO2 ABG O2 Saturation Sodium 126 L Potassium Chloride Carbon Dioxide Creatinine Glucose 118 H POC Glucose (mg/dL) Calcium 8.3 L Phosphorus Magnesium AST Creatine Kinase TSH Urine Protein Urine Blood Urine Bacteria Urine Mucus Urine Osmolality Assessment and Plan Assessment: This is a 69-year-old woman with underlying history of hypertension who refused to be on medication until recently she was placed on medication for the past several days and that yesterday she had an episode where she was in the bathroom and the heard a scream and then she fell on the ground and was not verbally responsive. ED she had fixed gaze deviation which has resolved after Ativan. 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 She was also found to have sodium of 119. 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 on the CT of the head Underlying history of hypertension Underlying history of uterine prolapse Plan: EEG is ordered and the preliminary read is negative for seizures I placed the patient on Keppra 500 mg twice daily She is on Seizure precaution and pads Once The patient is extubated will obtain MRI of the brain Recommend aspirin 81 mg, Lipitor 40 mg nightly for secondary stroke prophylaxis Nephrology is consulted for hyponatremia Will defer the rest of the medical management to primary and other specialist Plan discussed with the patient's was at bedside, son-in-law and the primary attending Thank for the consultation Time with Patient: Greater than 30
[2024-06-04] MEDS: LEVOTHYROXINE IVP 100 MCG/5 ML VIAL IV SCH (14:27)
[2024-06-04] MEDS: levETIRAcetam IV 500 MG/5 ML VIAL IVP SCH (14:27)
[2024-06-04] MEDS: ACETAMINOPHEN TAB 325 MG TAB PO PRN (15:33)
[2024-06-04 17:24] LABS: Glucose,Whole Blood 125 mg/dL (70-110)
--- NOTE | 2024-06-04 18:06 | P.HPIM ---
History of Present Illness H&P Date: 06/04/24 Chief Complaint: Seizure due to acute hyponatremia HISTORY OF PRESENT ILLNESS: This is a 69-year-old female who was seen in my office for the first time on May 30, 2020 for she presented to the office requiring a preoperative medical clearance regarding a surgical intervention that scheduled for July 05, 2024 for a prolapsed uterus and therefore she is in the office for evaluation, patient apparently appeared to have had history of hypertension her blood pressure was quite elevated in the office 161/110 patient has not taken any medication at this point in time, she stated that she is feeling fine at this point, she denies any prior history of any other health issues except for constipation as well as history of hyperlipidemia, patient was started on losar sawyer hydrochlorothiazide 100/12.5 mg orally once every day, and the patient did take about 4 days of that apparently the patient was at home and she cannot collapsed and the family heard a thump on the floor, patient apparently did have a seizure activity possibly was not witnessed at that time, patient was rushed to the emergency department at [facility], had a CT scan of the brain did not show evidence of acute abnormalities, she did have a CT angiography of the carotid as well as the brain did not show evidence of any intracranial aneurysm or any dissection of the carotid artery, patient was found to have a sodium level of 119 and chloride of 87, apparently the patient did suffer from significant hyponatremia that could be the trigger for her seizure activity possible and she was hypotensive, she was started on IV fluid resuscitation, she was admitted to the intensive care unit, patient was quite unresponsive, so she was intubated in the emergency department for airway protection, and consultation for garment cutter was obtained, patient was admitted to the ICU, she was seen today she is currently on the ventilator, she was seen by nephrology as well as by neurology, patient was started on seizure medication, she will have an EEG done, she was also started on vasopressin, and she was placed on Levophed because of hypotension, patient currently on AC mode with FiO2 of 40% PEEP of 5, and a tidal volume of 500, the plan is to extubate the patient tomorrow morning, and her next sodium level was 120 the last 1 was 122, we will continue to monitor the patient sodium very closely, and follow-up with the patient very closely patient may need to go for an MRI of the brain after she get disconnected from the ventilator. REVIEW OF SYSTEMS: Patient is sedated on the ventilator. PAST MEDICAL HISTORY: Hypertension and hypertensive cardiovascular disease. Mixed hyperlipidemia. Constipation. Vitamin D deficiency. Hyponatremia. Chronic tobacco use and dependence. PAST SURGICAL HISTORY: None. SOCIAL HISTORY: Patient smokes about a half a pack every day since she was 20-year-old, she denies any alcohol ingestion or drug use or abuse, she lives with her . FAMILY HISTORY: Father at the age of 84 from a NC and also had a history of kidney stones, mother at age of 60 from CVA, patient has 2 brothers alive and well, patient has 3 sister 1 with hypertension and 1 with a brain aneurysm, patient has 2 sons and 1 daughter no major medical problems. PHYSICAL EXAMINATION: General: 69-year-old female laying down in bed sedated on the ventilator. HEENT: Head is atraumatic, normocephalic, pupils were equal round, ET tube in place and oral gastric tube. Neck: Supple, no JVP, normal carotid upstroke bilaterally, no lymphadenopathy. Chest: Decreased breath sounds at the bases, few rhonchi, no extremity wheezes, no chest wall tenderness, no intercostal retractions. Heart: First heart sound is normal, second heart sound is normal there is no gallop or murmur. Abdomen: Soft, nontender, nondistended, positive bowel sounds. Extremities: There is no edema no calf tenderness DP +2 bilaterally. Neurologic examination: Patient is sedated on the ventilator. ASSESSMENT AND PLAN: 1. Severe hypovolemic hyponatremia. Patient did improve with normal saline she did receive 1 L in the ER, she is currently at 50 cc an hour last sodium is 126, nephrology is following, serum osmolality urine as well as urine sodium were reviewed, cortisol levels to pending at the time of dictation, will continue to follow the patient very closely, repeat sodium level tomorrow morning. We will avoid thiazide diuretics at this point in time. 2. Acute event dependent respiratory failure due to airway protection. Continue patient on FiO2 of 40% tidal volume of 500 and PEEP of 5, try to wean the patient off the ventilator in the next 24 hours. 3. Severe hypotension due to hypovolemia. Continue IV fluid resuscitation, continue to wean the patient off Levophed, patient blood pressure appears to be appropriate at this point in time. 4. Metabolic encephalopathy likely due to hyponatremia rule out seizure activity. 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 5. Hypertension and hypertensive cardiovascular disease currently hypotensive hold off antihypertensive medication. 6. Mixed hyperlipidemia her LDL cholesterol is greater than 160 patient will need to go on atorvastatin as an outpatient. 7. Elevated TSH level with a normal free T4 and free T3 we will recheck as an outpatient.. 7. Vitamin D deficiency. Patient will need to be started on vitamin D supplement as an outpatient. 8. History of uterine prolapse she is scheduled to go for surgical intervention at the end of next month. 9. Chronic tobacco use and dependence. Patient will need to have a lung cancer screening as an outpatient with low-dose CT scan of the chest. 10. Colon cancer screening will need to be addressed as an outpatient. 11. DVT prophylaxis. Continue patient on heparin 5000 units subcutaneous every 12 hours., continue with bilateral knee-high MANNY hose. 12. GI prophylaxis. Continue patient on PPI. 13. Admit to inpatient. Estimated length of stay 2 midnights. 14. Patient is full code. Past Medical History Past Medical History: GI Bleed Additional Past Medical History / Comment(s): PROLAPSED UTERUS History of Any Multi-Drug Resistant Organisms: None Reported Past Surgical History: No Surgical Hx Reported Past Psychological History: No Psychological Hx Reported Smoking Status: Current every day smoker Past Alcohol Use History: None Reported Past Drug Use History: None Reported Medications and Allergies Home Medications Medication Instructions Recorded Confirmed Type Losartan/Hydrochlorothiazide 1 tab PO DAILY 06/03/24 06/03/24 History [Losartan-Hctz 100-12.5 mg Tab] Allergies Allergy/AdvReac Type Severity Reaction Status Date / Time No Known Allergies Allergy Verified 06/03/24 17:15 Physical Exam Vitals: Vital Signs Temp Pulse Pulse Resp BP Pulse Ox FiO2 06/04/24 12:00 69 06/04/24 11:34 67 06/04/24 11:30 76 22 100 06/04/24 11:29 40 06/04/24 11:15 65 17 99 06/04/24 11:00 61 14 100 06/04/24 10:56 40 08/27/24 10:45 61 16 100 06/04/24 10:30 60 16 100 06/04/24 10:15 61 16 100 06/04/24 10:00 60 16 100 06/04/24 09:45 60 16 100 06/04/24 09:30 61 15 100 06/04/24 09:15 60 16 99 06/04/24 09:00 59 L 14 100 06/04/24 08:45 60 16 99 06/04/24 08:30 59 L 16 99 06/04/24 08:15 60 16 99 06/04/24 08:00 100.0 F H 60 16 99 40 06/04/24 07:45 61 15 100 06/04/24 07:42 40 06/04/24 07:30 59 L 15 100 06/04/24 07:15 59 L 15 06/04/24 07:00 59 L 15 100 06/04/24 06:45 60 15 100 06/04/24 06:30 61 16 100 06/04/24 06:15 61 15 100 06/04/24 06:00 60 15 100 06/04/24 05:45 59 L 14 100 06/04/24 05:30 61 14 100 06/04/24 05:15 57 L 16 06/04/24 05:00 58 L 14 100 06/04/24 04:45 57 L 15 99 06/04/24 04:36 40 06/04/24 04:30 55 L 15 100 06/04/24 04:15 52 L 16 100 06/04/24 04:00 97.3 F L 51 L 51 L 16 100 50 06/04/24 03:59 50 06/04/24 03:45 50 L 15 100 06/04/24 03:30 49 L 14 100 06/04/24 03:23 49 L 16 100 06/04/24 02:00 97.3 F L 55 L 16 114/80 06/04/24 01:00 59 L 25 H 88/57 06/04/24 00:30 62 24 93/65 06/04/24 00:00 61 24 99/63 06/03/24 23:41 50 06/03/24 23:30 63 25 H 107/68 06/03/24 22:00 63 114/74 100 06/03/24 21:00 64 25 H 95/56 06/03/24 20:59 98.0 F 57 L 22 85/56 06/03/24 20:28 50 06/03/24 20:05 98 F 60 24 100 06/03/24 20:00 64 24 90/55 100 06/03/24 19:32 90 06/03/24 16:40 100 06/03/24 16:12 70 18 181/84 92 L Intake and Output 06/03/24 06/04/24 06/04/24 22:59 06:59 14:59 Intake Total 174.775 461.355 364.602 Output Total 890 250 Balance 174.775 -428.645 114.602 Intake: IV 200 Sodium Chloride 0.9% 1, 200 000 ml @ 50 mls/hr IV . Q20H [facility] Rx#:[id number] Intake, IV Titration 174.775 461.355 124.602 Amount Norepinephrine 32 mg In 22.227 25.127 Sodium Chloride 0.9% 218 ml @ 0.03 MCG/KG/MIN 1. 021 mls/hr IV .Q24H [facility] Rx#:[id number] Norepinephrine 4 mg In 94.107 Sodium Chloride 0.9% 250 ml @ 0.03 MCG/KG/MIN 8. 295 mls/hr IV .Q24H [facility] Rx#:[id number] Sodium Chloride 0.9% 1, 300 50 000 ml @ 50 mls/hr IV . Q20H [facility] Rx#:[id number] fentaNYL (PF). 1,000 mcg 21.409 44.996 49.475 In Sodium Chloride 0.9% 80 ml @ 0.5 MCG/KG/HR 3. 629 mls/hr IV .Q24H [facility] Rx#:[id number] propofoL 1,000 mg In 59.259 94.132 Empty Bag 1 bag @ 20 MCG/ KG/MIN 8.709 mls/hr IV . [id number] [facility] Rx#:[id number] Tube Feeding 10 Other 30 Output: Urine 890 250 Other: Voiding Method Indwelling Catheter Indwelling Catheter Weight 72.575 kg 66.2 kg 66.2 kg ABP, PAP, CO, CI - Last 8 Hours Arterial Blood Pressure 161/51 Arterial Blood Pressure 138/50 Arterial Blood Pressure 137/50 Arterial Blood Pressure 137/50 Arterial Blood Pressure 132/49 Arterial Blood Pressure 121/44 Arterial Blood Pressure 106/42 Arterial Blood Pressure 97/39 Arterial Blood Pressure 117/47 Arterial Blood Pressure 117/49 Arterial Blood Pressure 124/48 Arterial Blood Pressure 131/48 Arterial Blood Pressure 119/47 Arterial Blood Pressure 120/47 Arterial Blood Pressure 116/46 Arterial Blood Pressure 123/50 Arterial Blood Pressure 110/46 Arterial Blood Pressure 115/49 Arterial Blood Pressure 112/49 Arterial Blood Pressure 120/50 Arterial Blood Pressure 127/57 Arterial Blood Pressure 131/58 Arterial Blood Pressure 125/54 Arterial Blood Pressure 133/57 Arterial Blood Pressure 132/54 Arterial Blood Pressure 125/63 Arterial Blood Pressure 119/55 Arterial Blood Pressure 129/54 Results CBC & Chem 7: 06/04/24 05:30 06/04/24 16:56 Labs: Abnormal Lab Results - Last 24 Hours (Table) 06/03/24 06/03/24 06/03/24 Range/Units 16:31 16:31 16:31 WBC 12.4 H (3.8-10.6) k/uL Neutrophils # (1.3-7.7) k/uL PT 12.6 H (10.0-12.5) sec INR 1.2 H (<1.2) ABG pH (7.35-7.45) ABG pCO2 (35-45) mmHg ABG pO2 (83-108) mmHg ABG HCO3 (21-25) mmol/L ABG Total CO2 (19-24) mmol/L ABG O2 Saturation (94-97) % Sodium 119 L* (137-145) mmol/L Potassium (3.5-5.1) mmol/L Chloride 87 L (98-107) mmol/L Carbon Dioxide 20 L (22-30) mmol/L Creatinine 0.51 L (0.52-1.04) mg/dL Glucose 112 H (74-99) mg/dL POC Glucose (mg/dL) (70-110) mg/dL Calcium (8.4-10.2) mg/dL Phosphorus (2.5-4.5) mg/dL Magnesium (1.6-2.3) mg/dL AST 50 H (14-36) U/L Creatine Kinase (30-135) U/L TSH (0.465-4.680) mIU/L Urine Protein (Negative) Urine Blood (Negative) Urine Bacteria (None) /hpf Urine Mucus (None) /hpf Urine Osmolality (400-1100) mOsm/kg 06/03/24 06/03/24 06/03/24 Range/Units 17:19 17:19 17:37 WBC (3.8-10.6) k/uL Neutrophils # (1.3-7.7) k/uL PT (10.0-12.5) sec INR (<1.2) ABG pH (7.35-7.45) ABG pCO2 (35-45) mmHg ABG pO2 (83-108) mmHg ABG HCO3 26 H (21-25) mmol/L ABG Total CO2 27 H (19-24) mmol/L ABG O2 Saturation 98.8 H (94-97) % Sodium (137-145) mmol/L Potassium (3.5-5.1) mmol/L Chloride (98-107) mmol/L Carbon Dioxide (22-30) mmol/L Creatinine (0.52-1.04) mg/dL Glucose (74-99) mg/dL POC Glucose (mg/dL) (70-110) mg/dL Calcium (8.4-10.2) mg/dL Phosphorus (2.5-4.5) mg/dL Magnesium (1.6-2.3) mg/dL AST (14-36) U/L Creatine Kinase (30-135) U/L TSH (0.465-4.680) mIU/L Urine Protein Trace H (Negative) Urine Blood Trace H (Negative) Urine Bacteria Rare H (None) /hpf Urine Mucus Rare H (None) /hpf Urine Osmolality 334 L (400-1100) mOsm/kg 06/03/24 06/03/24 06/03/24 Range/Units 18:40 19:36 21:17 WBC (3.8-10.6) k/uL Neutrophils # (1.3-7.7) k/uL PT (10.0-12.5) sec INR (<1.2) ABG pH 7.33 L (7.35-7.45) ABG pCO2 51 H (35-45) mmHg ABG pO2 379 H (83-108) mmHg ABG HCO3 27 H (21-25) mmol/L ABG Total CO2 28 H (19-24) mmol/L ABG O2 Saturation 100.0 H (94-97) % Sodium 122 L (137-145) mmol/L Potassium 3.2 L (3.5-5.1) mmol/L Chloride (98-107) mmol/L Carbon Dioxide 21 L (22-30) mmol/L Creatinine 0.35 L (0.52-1.04) mg/dL Glucose 119 H (74-99) mg/dL POC Glucose (mg/dL) (70-110) mg/dL Calcium 7.8 L (8.4-10.2) mg/dL Phosphorus (2.5-4.5) mg/dL Magnesium (1.6-2.3) mg/dL AST (14-36) U/L Creatine Kinase 1044 H* (30-135) U/L TSH 11.000 H (0.465-4.680) mIU/L Urine Protein (Negative) Urine Blood (Negative) Urine Bacteria (None) /hpf Urine Mucus (None) /hpf Urine Osmolality (400-1100) mOsm/kg 06/04/24 06/04/24 06/04/24 Range/Units 01:13 01:33 04:10 WBC (3.8-10.6) k/uL Neutrophils # (1.3-7.7) k/uL PT (10.0-12.5) sec INR (<1.2) ABG pH 7.33 L (7.35-7.45) ABG pCO2 48 H (35-45) mmHg ABG pO2 182 H (83-108) mmHg ABG HCO3 (21-25) mmol/L ABG Total CO2 26 H (19-24) mmol/L ABG O2 Saturation 99.6 H (94-97) % Sodium 123 L (137-145) mmol/L Potassium 3.3 L (3.5-5.1) mmol/L Chloride 94 L (98-107) mmol/L Carbon Dioxide 20 L (22-30) mmol/L Creatinine (0.52-1.04) mg/dL Glucose 126 H (74-99) mg/dL POC Glucose (mg/dL) 140 H (70-110) mg/dL Calcium (8.4-10.2) mg/dL Phosphorus (2.5-4.5) mg/dL Magnesium (1.6-2.3) mg/dL AST (14-36) U/L Creatine Kinase (30-135) U/L TSH (0.465-4.680) mIU/L Urine Protein (Negative) Urine Blood (Negative) Urine Bacteria (None) /hpf Urine Mucus (None) /hpf Urine Osmolality (400-1100) mOsm/kg 06/04/24 06/04/24 06/04/24 Range/Units 05:30 05:30 07:55 WBC 12.0 H (3.8-10.6) k/uL Neutrophils # 9.4 H (1.3-7.7) k/uL PT (10.0-12.5) sec INR (<1.2) ABG pH (7.35-7.45) ABG pCO2 (35-45) mmHg ABG pO2 (83-108) mmHg ABG HCO3 (21-25) mmol/L ABG Total CO2 (19-24) mmol/L ABG O2 Saturation (94-97) % Sodium 124 L 135 L (137-145) mmol/L Potassium (3.5-5.1) mmol/L Chloride 94 L (98-107) mmol/L Carbon Dioxide (22-30) mmol/L Creatinine (0.52-1.04) mg/dL Glucose 114 H (74-99) mg/dL POC Glucose (mg/dL) (70-110) mg/dL Calcium (8.4-10.2) mg/dL Phosphorus 4.7 H (2.5-4.5) mg/dL Magnesium 2.6 H (1.6-2.3) mg/dL AST (14-36) U/L Creatine Kinase (30-135) U/L TSH (0.465-4.680) mIU/L Urine Protein (Negative) Urine Blood (Negative) Urine Bacteria (None) /hpf Urine Mucus (None) /hpf Urine Osmolality (400-1100) mOsm/kg 06/04/24 Range/Units 08:45 WBC (3.8-10.6) k/uL Neutrophils # (1.3-7.7) k/uL PT (10.0-12.5) sec INR (<1.2) ABG pH (7.35-7.45) ABG pCO2 (35-45) mmHg ABG pO2 (83-108) mmHg ABG HCO3 (21-25) mmol/L ABG Total CO2 (19-24) mmol/L ABG O2 Saturation (94-97) % Sodium 126 L (137-145) mmol/L Potassium (3.5-5.1) mmol/L Chloride (98-107) mmol/L Carbon Dioxide (22-30) mmol/L Creatinine (0.52-1.04) mg/dL Glucose 118 H (74-99) mg/dL POC Glucose (mg/dL) (70-110) mg/dL Calcium 8.3 L (8.4-10.2) mg/dL Phosphorus (2.5-4.5) mg/dL Magnesium (1.6-2.3) mg/dL AST (14-36) U/L Creatine Kinase (30-135) U/L TSH (0.465-4.680) mIU/L Urine Protein (Negative) Urine Blood (Negative) Urine Bacteria (None) /hpf Urine Mucus (None) /hpf Urine Osmolality (400-1100) mOsm/kg
[2024-06-04] MEDS: SODIUM CHLORIDE 0.9% 1,000 ML IV SCH (18:21)
[2024-06-04] MEDS ORDERED: NOREPINEPHRINE 8 MG in SODIUM CHLORIDE 0.9% 250 ML IV PRN (22:45)
[2024-06-04] MEDS: NOREPINEPHRINE 8 MG in SODIUM CHLORIDE 0.9% 250 ML IV SCH (22:55)
[2024-06-04 23:16] LABS: Glucose,Whole Blood 136 mg/dL (70-110)
[2024-06-05] MEDS: HYDROmorphone 0.5 MG/0.5 ML SYRINGE IVP PRN (00:21)
[2024-06-05 05:07] LABS: Basophils % (A) 0 %; Eosinophils # (A) 0.1 k/uL (0-0.7); Eosinophils % (A) 1 %; HCT 27.9 % (34.0-46.0); Lymphocytes % (A) 9 %; MCH 30.8 pg (25.0-35.0); MCHC 33.3 g/dL (31.0-37.0); MCV 92.5 fL (80.0-100.0); Mean Platelet Volume 8.7; Monocytes # (A) 0.6 k/uL (0-1.0); Monocytes % (A) 5 %; Neutrophils # (A) 9.9 k/uL (1.3-7.7); Neutrophils % (A) 85 %; Platelet Count 172 k/uL (150-450); RBC 3.01 m/uL (3.80-5.40); RDW 13.5 % (11.5-15.5); WBC 11.6 k/uL (3.8-10.6)
[2024-06-05 05:07] LABS: ABG Base Excess 0.5 mmol/L; ABG HCO3 26 mmol/L (21-25); ABG Oxygen Saturation 98.9 % (94-97); ABG PCO2 43 mmHg (35-45); ABG PH 7.38 (7.35-7.45); ABG PO2 111 mmHg (83-108); ABG TCO2 27 mmol/L (19-24); Allen Test Performed? Yes
[2024-06-05 05:08] LABS: African American GFR (CKD) >90 (>60 ml/min/1.73 sqM); Anion Gap -1 mmol/L; Blood Urea Nitrogen 5 mg/dL (7-17); Calcium 8.4 mg/dL (8.4-10.2); Carbon Dioxide 25 mmol/L (22-30); Chloride 101 mmol/L (98-107); Glucose 123 mg/dL (74-99); Non-African American GFR(CKD) >90 (>60 ml/min/1.73 sqM); Potassium 3.2 mmol/L (3.5-5.1); Sodium 125 mmol/L (137-145)
[2024-06-05 05:15] LABS: HGB 9.3 gm/dL (11.4-16.0)
[2024-06-05 05:52] LABS: Basophils % (A) 0 %; Eosinophils # (A) 0.1 k/uL (0-0.7); Eosinophils % (A) 1 %; HCT 32.2 % (34.0-46.0); HGB 10.7 gm/dL (11.4-16.0); Lymphocytes # (A) 1.2 k/uL (1.0-4.8); Lymphocytes % (A) 9 %; MCH 30.3 pg (25.0-35.0); MCHC 33.2 g/dL (31.0-37.0); MCV 91.2 fL (80.0-100.0); Mean Platelet Volume 8.1; Monocytes # (A) 0.7 k/uL (0-1.0); Monocytes % (A) 5 %; Neutrophils # (A) 12.3 k/uL (1.3-7.7); Neutrophils % (A) 85 %; Platelet Count 194 k/uL (150-450); RBC 3.54 m/uL (3.80-5.40); RDW 13.1 % (11.5-15.5); WBC 14.4 k/uL (3.8-10.6)
[2024-06-05 06:02] LABS: African American GFR (CKD) >90 (>60 ml/min/1.73 sqM); Anion Gap 0 mmol/L; Blood Urea Nitrogen 4 mg/dL (7-17); Calcium 8.3 mg/dL (8.4-10.2); Carbon Dioxide 26 mmol/L (22-30); Chloride 102 mmol/L (98-107); Glucose 122 mg/dL (74-99); Non-African American GFR(CKD) >90 (>60 ml/min/1.73 sqM); Potassium 3.2 mmol/L (3.5-5.1); Sodium 128 mmol/L (137-145)
[2024-06-05] MEDS ORDERED: Potassium Replacement Protocol 1 EACH MISC MISCELLANE PRN (06:35)
--- NOTE | 2024-06-05 06:39 | EEG ---
ELECTROENCEPHALOGRAM REPORT CLINICAL HISTORY: This is a 69-year-old woman with confusion and right gaze fixation. The video EEG is obtained to evaluate for seizure epileptiform activity. RELEVANT MEDICATIONS: 1. Ativan. 2. Propofol. EEG TYPE: This is a routine 21-channel EEG with video using the 10/20 electrode placement system. DESCRIPTION: The patient is intubated on a ventilator. The background consists of [id number] voltage of 7 hertz activity. There is no physiological stage 2 sleep architecture. There is no focal slowing from the limitation of the study. There is diffuse [id number] myogenic artifact. Interictal or ictal are none from the limitation. ACTIVATION PROCEDURE: Photic stimulation did not evoke a posterior driving response. There is no abnormality during the photic stimulation. Hyperventilation is not performed. CLINICAL INTERPRETATION: This is an abnormal routine EEG. The background slowing is suggestive of mild encephalopathy. There is no focal slowing, epileptiform discharge, or seizure on the EEG. Clinical correlation is recommended. MMODL / IJN: [id number] / PIOTR
[2024-06-05] MEDS: POTASSIUM BICARBONATE/CIT AC 20 MEQ TABLET.EFF NG-TUBE SCH (06:54)
--- NOTE | 2024-06-05 07:40 | XR ---
EXAMINATION TYPE: XR chest 1V portable DATE OF EXAM: 06/05/2024 Comparison: 06/04/2024 Clinical History: 69 year-old female tube placement Findings: ET and NG tubes are satisfactory. Heart upper limits of normal in size. Mild hyperinflation. No jona consolidation or pleural effusion. Some strandy left lower lung atelectasis remains. Impression: Stable exam, no definite acute process.
--- NOTE | 2024-06-05 10:02 | P.PN ---
Subjective Patient is seen in follow-up for hyponatremia. Sodium level 120 this morning. Intubated. Off Levophed. Vital signs are stable. General: Resting in bed. HEENT: Intubated. LUNGS: No audible rhonchi or wheezes. HEART: Rate and Rhythm are regular. ABDOMEN: No distention. EXTREMITITES: No edema. Objective - Vital Signs Vital signs: Vital Signs Temp 99.6 F 06/05/24 04:00 Pulse 70 06/05/24 08:15 Resp 20 06/05/24 07:00 BP 108/60 06/05/24 05:30 Pulse Ox 100 06/05/24 07:00 FiO2 40 06/05/24 07:55 Intake & Output 06/04/24 06/05/24 06/05/24 18:59 06:59 18:59 Intake Total 621.268 983.446 241.406 Output Total 680 1000 85 Balance -58.732 -16.554 156.406 Weight 66.2 kg 64.2 kg Intake: IV 290 600 50 0.9ns 140 Sodium Chloride 0.9% 1, 150 000 ml @ 50 mls/hr IV . Q20H [facility] Rx#:[id number] Sodium Chloride 0.9% 1, 600 50 000 ml @ 50 mls/hr IV . Q20H [facility] Rx#:[id number] Intake, IV Titration 221.268 103.446 161.406 Amount Norepinephrine 32 mg In 41.559 3.403 Sodium Chloride 0.9% 218 ml @ 0.03 MCG/KG/MIN 1. 021 mls/hr IV .Q24H [facility] Rx#:[id number] Norepinephrine 8 mg In 0.043 161.406 Sodium Chloride 0.9% 250 ml @ 0.03 MCG/KG/MIN 3. 843 mls/hr IV .Q24H [facility] Rx#:[id number] Sodium Chloride 0.9% 1, 50 000 ml @ 50 mls/hr IV . Q20H [facility] Rx#:[id number] fentaNYL (PF). 1,000 mcg 49.475 In Sodium Chloride 0.9% 80 ml @ 0.5 MCG/KG/HR 3. 629 mls/hr IV .Q24H [facility] Rx#:[id number] propofoL 1,000 mg In 80.234 100 Empty Bag 1 bag @ 15 MCG/ KG/MIN 5.958 mls/hr IV . [id number] [facility] Rx#:[id number] Tube Feeding 80 280 30 Other 30 Output: Urine 680 1000 85 Other: Voiding Method Indwelling Catheter Indwelling Catheter ABP, PAP, CO, CI - Last Documented Arterial Blood Pressure 133/45 - Labs CBC & Chem 7: 06/05/24 05:20 06/05/24 05:20 Labs: Abnormal Lab Results - Last 24 Hours (Table) 06/03/24 06/04/24 06/04/24 Range/Units 21:17 13:00 16:56 WBC (3.8-10.6) k/uL RBC (3.80-5.40) m/uL Hgb (11.4-16.0) gm/dL Hct (34.0-46.0) % Neutrophils # (1.3-7.7) k/uL ABG pO2 (83-108) mmHg ABG HCO3 (21-25) mmol/L ABG Total CO2 (19-24) mmol/L ABG O2 Saturation (94-97) % Sodium 126 L 125 L (137-145) mmol/L Potassium (3.5-5.1) mmol/L BUN (7-17) mg/dL Creatinine (0.52-1.04) mg/dL Glucose (74-99) mg/dL POC Glucose (mg/dL) (70-110) mg/dL Osmolality 259 L (275-295) mOsm/kg Calcium (8.4-10.2) mg/dL 06/04/24 06/04/24 06/05/24 Range/Units 17:23 23:15 04:45 WBC 11.6 H (3.8-10.6) k/uL RBC 3.01 L (3.80-5.40) m/uL Hgb 9.3 L D (11.4-16.0) gm/dL Hct 27.9 L (34.0-46.0) % Neutrophils # 9.9 H (1.3-7.7) k/uL ABG pO2 (83-108) mmHg ABG HCO3 (21-25) mmol/L ABG Total CO2 (19-24) mmol/L ABG O2 Saturation (94-97) % Sodium (137-145) mmol/L Potassium (3.5-5.1) mmol/L BUN (7-17) mg/dL Creatinine (0.52-1.04) mg/dL Glucose (74-99) mg/dL POC Glucose (mg/dL) 125 H 136 H (70-110) mg/dL Osmolality (275-295) mOsm/kg Calcium (8.4-10.2) mg/dL 06/05/24 06/05/24 06/05/24 Range/Units 04:45 05:05 05:20 WBC 14.4 H (3.8-10.6) k/uL RBC 3.54 L (3.80-5.40) m/uL Hgb 10.7 L (11.4-16.0) gm/dL Hct 32.2 L (34.0-46.0) % Neutrophils # 12.3 H (1.3-7.7) k/uL ABG pO2 111 H (83-108) mmHg ABG HCO3 26 H (21-25) mmol/L ABG Total CO2 27 H (19-24) mmol/L ABG O2 Saturation 98.9 H (94-97) % Sodium 125 L (137-145) mmol/L Potassium 3.2 L (3.5-5.1) mmol/L BUN 5 L (7-17) mg/dL Creatinine 0.41 L (0.52-1.04) mg/dL Glucose 123 H (74-99) mg/dL POC Glucose (mg/dL) (70-110) mg/dL Osmolality (275-295) mOsm/kg Calcium (8.4-10.2) mg/dL 06/05/24 Range/Units 05:20 WBC (3.8-10.6) k/uL RBC (3.80-5.40) m/uL Hgb (11.4-16.0) gm/dL Hct (34.0-46.0) % Neutrophils # (1.3-7.7) k/uL ABG pO2 (83-108) mmHg ABG HCO3 (21-25) mmol/L ABG Total CO2 (19-24) mmol/L ABG O2 Saturation (94-97) % Sodium 128 L (137-145) mmol/L Potassium 3.2 L (3.5-5.1) mmol/L BUN 4 L (7-17) mg/dL Creatinine 0.40 L (0.52-1.04) mg/dL Glucose 122 H (74-99) mg/dL POC Glucose (mg/dL) (70-110) mg/dL Osmolality (275-295) mOsm/kg Calcium 8.3 L (8.4-10.2) mg/dL Microbiology - Last 24 Hours (Table) 06/03/24 20:49 Gram Stain - Preliminary Sputum Assessment and Plan Plan: Assessment: 1. Hypovolemic hyponatremia improved with normal saline. Also component of thiazide diuretic use. Sodium level 128 this morning. Urine sodium 71 and urine osmolality 334. TSH elevated at 11. Free T4 normal. Cortisol 14.1. 2. Status post fall. 3. Altered mental status possibly from hyponatremia and questionable seizure. 4. Hypotension status post Levophed. 5. Hypokalemia from diuretic use and poor intake. Plan: Maintain normal saline at 50 cc an hour. Continue tube feeds. Wean FiO2. Avoid thiazide diuretics.
--- NOTE | 2024-06-05 10:58 | P.PN ---
Subjective Progress Note Date: 06/05/24 Principal diagnosis: Respiratory failure, hyponatremia, seizure. Patient is a 69-year-old white female. Past medical history is largely unknown, as the patient is currently intubated mechanical ventilator and unable to participate in interview. Apparently, patient was at home in the bathroom, family heard a crashing sound. Patient was found on the ground, altered. She was brought in via EMS, noted to be agitated and confused by ER provider. She had shallow respirations. Patient was ultimately intubated for airway protection. Initial CT of the brain and C-spine did not show any acute intracranial process. Remote left frontal lobe injury. No evidence of cervical spine fracture. Brain CTA does not show any evidence of intracranial high-grade stenosis or intracranial aneurysm. No evidence of dissection of the cervical internal carotid arteries or vertebral arteries or significant stenosis at the carotid bifurcations. Patient was felt to have possible seizure-like activity. Nystagmus was noted. She did receive a dose of Ativan in the emergency department. I am evaluating this patient in trauma bay 2. She is currently intubated mechanical ventilator. Postintubation chest x-ray shows the endotracheal tube approximately 3.6 cm above the jignesh. Nasogastric tube with the distal tip projecting underneath the diaphragm. No focal infiltrates or evidence of pneumonia. No obvious acute cardiopulmonary disease process. Postintubation chest x-ray shows a PaO2 of 379, pCO2 of 51, pH of 7.33. Current ventilator settings are assist-control, respiratory rate 16, tidal volume 350, FiO2 was dropped to 50%, and PEEP of 5. She is breathing slightly above set the rate around 18 breaths/min. No significant airway secretions. Peak pressure 23. She is sedated on a combination of propofol which is infusing at 35 mcg/kg/min as well as fentanyl at 2 mcg/kg/h. No obvious clinical signs of seizure activity. She awakes to tactile stimuli, but then falls quickly back to sleep. Does not follow any commands. Moves all 4 extremities. She is requiring high-dose norepinephrine which is currently running at 0.19 mcg/kg/min. ER physician is going to insert a central line catheter. She did receive a 1 L normal saline bolus in the emergency department. She was noted to be hyponatremic, suspect hypovolemic. Sodium level on arrival 119. Appropriate osmolality and urine studies pending. Normal saline infusing at 50 mL/h. Most recent BMP: Sodium 122, potassium 3.2, chloride 99, serum bicarb 21, BUN 8, creatinine 0.35, glucose 119. Creatinine kinase 1044. Ammonia 15. Troponin less than 0.012. TSH 11, free T4 1.73. Urinalysis not very remarkable for infection. Urine drug screen negative. Serum alcohol level less than 10. CBC: WBC count 12.4, hemoglobin 13.6, hematocrit 40.2, platelets 307. X-ray of the pelvis showed mild step-off of the right inferior pubic ramus concerning for possible fracture. Patient's condition is currently critical. Patient will be admitted to the intensive care unit as soon as bed available. Progress note dated June 05, 2024. 69-year-old female who was brought into the emergency department, with mental status changes, a fall, and possible seizure, as well as hyponatremia. The patient was intubated for airway protection. She remains on the ventilator. She is on volume assist-control, rate 16, tidal volume 350, FiO2 40%, PEEP of 5. Blood gases show pO2 of 111, pCO2 of 43, pH of 7.38. The patient is getting propofol at 30 mcg/kg/min, saline at 50 cc an hour, and vital AF at 30 cc an hour, which is goal. Today, the patient should have a daily interruption of sedation, and a spontaneous breathing trial. Labs include a white count 14.4, hemoglobin 10.7, hematocrit 32.2, and a platelet count is normal. Sodium 128, potassium 3.2, chlorides 102, CO2 26, BUN 4, creatinine 0.40. Glucose is 122. Calcium is 8.3. Chest x-ray shows a normal chest x-ray. No acute process noted. Objective - Vital Signs Vital signs: Vital Signs Temp 98.9 F 06/05/24 08:00 Pulse 70 06/05/24 10:15 Resp 23 06/05/24 10:15 BP 110/61 06/05/24 10:15 Pulse Ox 100 06/05/24 10:15 FiO2 40 06/05/24 09:45 Intake & Output 06/04/24 06/05/24 06/05/24 18:59 06:59 18:59 Intake Total 621.268 983.446 461.406 Output Total 680 1000 350 Balance -58.732 -16.554 111.406 Weight 66.2 kg 64.2 kg Intake: IV 290 600 240 0.9ns 140 Invasive Line 1 30 Invasive Line 2 10 Sodium Chloride 0.9% 1, 150 000 ml @ 50 mls/hr IV . Q20H [facility] Rx#:[id number] Sodium Chloride 0.9% 1, 600 200 000 ml @ 50 mls/hr IV . Q20H [facility] Rx#:[id number] Intake, IV Titration 221.268 103.446 161.406 Amount Norepinephrine 32 mg In 41.559 3.403 Sodium Chloride 0.9% 218 ml @ 0.03 MCG/KG/MIN 1. 021 mls/hr IV .Q24H [facility] Rx#:[id number] Norepinephrine 8 mg In 0.043 161.406 Sodium Chloride 0.9% 250 ml @ 0.03 MCG/KG/MIN 3. 843 mls/hr IV .Q24H [facility] Rx#:[id number] Sodium Chloride 0.9% 1, 50 000 ml @ 50 mls/hr IV . Q20H [facility] Rx#:[id number] fentaNYL (PF). 1,000 mcg 49.475 In Sodium Chloride 0.9% 80 ml @ 0.5 MCG/KG/HR 3. 629 mls/hr IV .Q24H [facility] Rx#:[id number] propofoL 1,000 mg In 80.234 100 Empty Bag 1 bag @ 15 MCG/ KG/MIN 5.958 mls/hr IV . [id number] [facility] Rx#:[id number] Tube Feeding 80 280 60 Other 30 Output: Urine 680 1000 350 Other: Voiding Method Indwelling Catheter Indwelling Catheter Indwelling Catheter ABP, PAP, CO, CI - Last Documented Arterial Blood Pressure 153/49 - Exam No acute distress, sedated, with an orally placed endotracheal tube, and NG tube. HEENT examination is grossly unremarkable. Neck supple. Full range of motion. No adenopathy thyromegaly or neck vein distention. Cardiovascular examination reveals regular rhythm rate. S1-S2 normal. No S3 or S4. No discernible murmur noted. Lungs reveal scattered mild rhonchi. No wheezes or crackles. Breath sounds equal. Abdomen soft bowel sounds are heard. No masses or tenderness. Extremities are intact. No cyanosis clubbing or edema. Skin is without rash or lesion. Neurologic examination cannot be assessed at this time. - Labs CBC & Chem 7: 06/05/24 05:20 06/05/24 05:20 Labs: Abnormal Lab Results - Last 24 Hours (Table) 06/03/24 06/04/24 06/04/24 Range/Units 21:17 13:00 16:56 WBC (3.8-10.6) k/uL RBC (3.80-5.40) m/uL Hgb (11.4-16.0) gm/dL Hct (34.0-46.0) % Neutrophils # (1.3-7.7) k/uL ABG pO2 (83-108) mmHg ABG HCO3 (21-25) mmol/L ABG Total CO2 (19-24) mmol/L ABG O2 Saturation (94-97) % Sodium 126 L 125 L (137-145) mmol/L Potassium (3.5-5.1) mmol/L BUN (7-17) mg/dL Creatinine (0.52-1.04) mg/dL Glucose (74-99) mg/dL POC Glucose (mg/dL) (70-110) mg/dL Osmolality 259 L (275-295) mOsm/kg Calcium (8.4-10.2) mg/dL 06/04/24 06/04/24 06/05/24 Range/Units 17:23 23:15 04:45 WBC 11.6 H (3.8-10.6) k/uL RBC 3.01 L (3.80-5.40) m/uL Hgb 9.3 L D (11.4-16.0) gm/dL Hct 27.9 L (34.0-46.0) % Neutrophils # 9.9 H (1.3-7.7) k/uL ABG pO2 (83-108) mmHg ABG HCO3 (21-25) mmol/L ABG Total CO2 (19-24) mmol/L ABG O2 Saturation (94-97) % Sodium (137-145) mmol/L Potassium (3.5-5.1) mmol/L BUN (7-17) mg/dL Creatinine (0.52-1.04) mg/dL Glucose (74-99) mg/dL POC Glucose (mg/dL) 125 H 136 H (70-110) mg/dL Osmolality (275-295) mOsm/kg Calcium (8.4-10.2) mg/dL 06/05/24 06/05/24 06/05/24 Range/Units 04:45 05:05 05:20 WBC 14.4 H (3.8-10.6) k/uL RBC 3.54 L (3.80-5.40) m/uL Hgb 10.7 L (11.4-16.0) gm/dL Hct 32.2 L (34.0-46.0) % Neutrophils # 12.3 H (1.3-7.7) k/uL ABG pO2 111 H (83-108) mmHg ABG HCO3 26 H (21-25) mmol/L ABG Total CO2 27 H (19-24) mmol/L ABG O2 Saturation 98.9 H (94-97) % Sodium 125 L (137-145) mmol/L Potassium 3.2 L (3.5-5.1) mmol/L BUN 5 L (7-17) mg/dL Creatinine 0.41 L (0.52-1.04) mg/dL Glucose 123 H (74-99) mg/dL POC Glucose (mg/dL) (70-110) mg/dL Osmolality (275-295) mOsm/kg Calcium (8.4-10.2) mg/dL 06/05/24 Range/Units 05:20 WBC (3.8-10.6) k/uL RBC (3.80-5.40) m/uL Hgb (11.4-16.0) gm/dL Hct (34.0-46.0) % Neutrophils # (1.3-7.7) k/uL ABG pO2 (83-108) mmHg ABG HCO3 (21-25) mmol/L ABG Total CO2 (19-24) mmol/L ABG O2 Saturation (94-97) % Sodium 128 L (137-145) mmol/L Potassium 3.2 L (3.5-5.1) mmol/L BUN 4 L (7-17) mg/dL Creatinine 0.40 L (0.52-1.04) mg/dL Glucose 122 H (74-99) mg/dL POC Glucose (mg/dL) (70-110) mg/dL Osmolality (275-295) mOsm/kg Calcium 8.3 L (8.4-10.2) mg/dL Microbiology - Last 24 Hours (Table) 06/03/24 20:49 Gram Stain - Preliminary Sputum Assessment and Plan Assessment: S/P fall, secondary to possible hyponatremia, and/or seizure. Altered mental status, unable to rule out possible seizure. S/P intubation and mechanical ventilator management, 06/03/2024. Hyponatremia. Hypotension and shock, recovered. Sinus bradycardia, possibly secondary to medication effect and propofol. Subclinical hypothyroidism. Hypokalemia. Female genital prolapse. Plan: Plan dated June 05, 2024. The patient appears to be relatively stable. The patient blood gases are very good including a pO2 111, pCO2 43, pH is 7.38. The patient is on propofol, and saline, as well as tube feedings. We will do a daily interruption of sedation, and a spontaneous breathing trial. Labs, x-rays, and all medications are reviewed. Hopefully, the patient will be able to be weaned, and extubated quickly. Time with Patient: Greater than 30
[2024-06-05 12:19] LABS: Glucose,Whole Blood 117 mg/dL (70-110)
[2024-06-05 12:30] LABS: Magnesium 2.1 mg/dL (1.6-2.3)
--- NOTE | 2024-06-05 14:39 | P.PN ---
Subjective Progress Note Date: 06/05/24 I am following up with patient and today was extubated. She does not recall what transpired that led her to be hospitalized. She denies of any headache, focal weakness. Her feels she is doing better and conversing more. Objective - Vital Signs Vital signs: Vital Signs Temp 99.9 F H 06/05/24 12:00 Pulse 87 06/05/24 12:15 Resp 18 06/05/24 12:15 BP 141/72 06/05/24 12:00 Pulse Ox 94 L 06/05/24 12:15 FiO2 40 06/05/24 11:01 Intake & Output 06/04/24 06/05/24 06/05/24 18:59 06:59 18:59 Intake Total 621.268 983.446 841.427 Output Total 680 1000 675 Balance -58.732 -16.554 166.427 Weight 66.2 kg 64.2 kg Intake: IV 290 600 380 0.9ns 140 Invasive Line 1 60 Invasive Line 2 20 Sodium Chloride 0.9% 1, 150 000 ml @ 50 mls/hr IV . Q20H [facility] Rx#:[id number] Sodium Chloride 0.9% 1, 600 300 000 ml @ 50 mls/hr IV . Q20H [facility] Rx#:[id number] Intake, IV Titration 221.268 103.446 191.427 Amount Norepinephrine 32 mg In 41.559 3.403 Sodium Chloride 0.9% 218 ml @ 0.03 MCG/KG/MIN 1. 021 mls/hr IV .Q24H [facility] Rx#:[id number] Norepinephrine 8 mg In 0.043 161.438 Sodium Chloride 0.9% 250 ml @ 0.03 MCG/KG/MIN 3. 843 mls/hr IV .Q24H [facility] Rx#:[id number] Sodium Chloride 0.9% 1, 50 000 ml @ 50 mls/hr IV . Q20H [facility] Rx#:[id number] fentaNYL (PF). 1,000 mcg 49.475 In Sodium Chloride 0.9% 80 ml @ 0.5 MCG/KG/HR 3. 629 mls/hr IV .Q24H [facility] Rx#:[id number] propofoL 1,000 mg In 80.234 100 29.989 Empty Bag 1 bag @ 15 MCG/ KG/MIN 5.958 mls/hr IV . [id number] [facility] Rx#:[id number] Tube Feeding 80 280 210 Other 30 60 Output: Gastric Drainage 200 Urine 680 1000 475 Other: Voiding Method Indwelling Catheter Indwelling Catheter Indwelling Catheter # Bowel Movements 0 ABP, PAP, CO, CI - Last Documented Arterial Blood Pressure 156/62 - Exam General: Lying in bed and is not in acute distress. HENT: Supple neck. Neuro: Somewhat limited since just extubated. Patient is mildly drowsy but is awakeable to voice. Is oriented to self, place and current year but did not know month. Is following simple commands. No aphasia Pupils are round, equal and reactive to light. Visual caballero are full to confrontation. EOM intact and no nystagmus. No facial weakness. Motor: Lifting all extremities above gravity and strength are equal. Sensation is normal to touch throughout. Some of the other work-up in our facility consisted of: Overnight T-max is 102.5F Sodium was 119-->128 white Blood cell is 12.4 on presentation-->14.4K Ammonia is 15 CK level is 1444 TSH is 11 Free T4 is 1.73 Reviewed the rest of the lab work CT of the head is reported as no acute intracranial process. Remote left frontal lobe injury. Personally reviewed the CT and I agree that the patient does have an old left frontal lobe injury next CT cervical spine is reported as no evidence cervical spine fracture. Mild multilevel degenerative disc disease. Neck CT angiography of the head and neck is reported as extremely limited exam due to motion and some areas given limitations no evidence of intracranial high-grade stenosis or intracranial aneurysm. No evidence of dissection cervical internal carotid artery or vertebral artery or any evidence of significant stenosis at the carotid bifurcation 2D echo was reported as moderately increased left ventricle wall thickness. Ejection fraction of 55-60. Routine EEG: Is abnormal. The background slowing is suggestive of mild encephalopathy. There is no focal slowing, epileptiform discharges or seizure on the EEG. - Labs CBC & Chem 7: 06/05/24 05:20 06/05/24 12:00 Labs: Abnormal Lab Results - Last 24 Hours (Table) 06/03/24 06/04/24 06/04/24 Range/Units 21:17 16:56 17:23 WBC (3.8-10.6) k/uL RBC (3.80-5.40) m/uL Hgb (11.4-16.0) gm/dL Hct (34.0-46.0) % Neutrophils # (1.3-7.7) k/uL ABG pO2 (83-108) mmHg ABG HCO3 (21-25) mmol/L ABG Total CO2 (19-24) mmol/L ABG O2 Saturation (94-97) % Sodium 125 L (137-145) mmol/L Potassium (3.5-5.1) mmol/L BUN (7-17) mg/dL Creatinine (0.52-1.04) mg/dL Glucose (74-99) mg/dL POC Glucose (mg/dL) 125 H (70-110) mg/dL Osmolality 259 L (275-295) mOsm/kg Calcium (8.4-10.2) mg/dL 06/04/24 06/05/24 06/05/24 Range/Units 23:15 04:45 04:45 WBC 11.6 H (3.8-10.6) k/uL RBC 3.01 L (3.80-5.40) m/uL Hgb 9.3 L D (11.4-16.0) gm/dL Hct 27.9 L (34.0-46.0) % Neutrophils # 9.9 H (1.3-7.7) k/uL ABG pO2 (83-108) mmHg ABG HCO3 (21-25) mmol/L ABG Total CO2 (19-24) mmol/L ABG O2 Saturation (94-97) % Sodium 125 L (137-145) mmol/L Potassium 3.2 L (3.5-5.1) mmol/L BUN 5 L (7-17) mg/dL Creatinine 0.41 L (0.52-1.04) mg/dL Glucose 123 H (74-99) mg/dL POC Glucose (mg/dL) 136 H (70-110) mg/dL Osmolality (275-295) mOsm/kg Calcium (8.4-10.2) mg/dL 06/05/24 06/05/24 06/05/24 Range/Units 05:05 05:20 05:20 WBC 14.4 H (3.8-10.6) k/uL RBC 3.54 L (3.80-5.40) m/uL Hgb 10.7 L (11.4-16.0) gm/dL Hct 32.2 L (34.0-46.0) % Neutrophils # 12.3 H (1.3-7.7) k/uL ABG pO2 111 H (83-108) mmHg ABG HCO3 26 H (21-25) mmol/L ABG Total CO2 27 H (19-24) mmol/L ABG O2 Saturation 98.9 H (94-97) % Sodium 128 L (137-145) mmol/L Potassium 3.2 L (3.5-5.1) mmol/L BUN 4 L (7-17) mg/dL Creatinine 0.40 L (0.52-1.04) mg/dL Glucose 122 H (74-99) mg/dL POC Glucose (mg/dL) (70-110) mg/dL Osmolality (275-295) mOsm/kg Calcium 8.3 L (8.4-10.2) mg/dL 06/05/24 Range/Units 12:17 WBC (3.8-10.6) k/uL RBC (3.80-5.40) m/uL Hgb (11.4-16.0) gm/dL Hct (34.0-46.0) % Neutrophils # (1.3-7.7) k/uL ABG pO2 (83-108) mmHg ABG HCO3 (21-25) mmol/L ABG Total CO2 (19-24) mmol/L ABG O2 Saturation (94-97) % Sodium (137-145) mmol/L Potassium (3.5-5.1) mmol/L BUN (7-17) mg/dL Creatinine (0.52-1.04) mg/dL Glucose (74-99) mg/dL POC Glucose (mg/dL) 117 H (70-110) mg/dL Osmolality (275-295) mOsm/kg Calcium (8.4-10.2) mg/dL Microbiology - Last 24 Hours (Table) 06/03/24 20:49 Gram Stain - Preliminary Sputum Sputum Culture - Preliminary Assessment and Plan Assessment: This is a 69-year-old woman with underlying history of hypertension who refused to be on medication until recently she was placed on medication for the past several days and that yesterday she had an episode where she was in the bathroom and the heard a scream and then she fell on the ground and was not verbally responsive. ED she had fixed gaze deviation which has resolved after Ativan. 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 She was also found to have sodium of 119. Patient episode of screaming with confusion and gaze deviation is concerning for probable new onset seizure: Seizure seems to be provoked due to hyponatremia--mentation is improving. EEG is mild encephalopathy but no seizure or discharges. Pyrexia as high as 102.5F: Unsure exact cause. Has supple neck. She presented afebrile on presentation. Possible aspiration pneumonia. R/O meningoencephalitis but appears unlikely. Significant hyponatremia 119, concerned it is due to medication induced especially with the new hypertensive medication--improving Incidental left frontal brain injury that is old on the CT of the head Underlying history of hypertension Underlying history of uterine prolapse Plan: Ordered MRI Brain w/ and w/o. Continue Keppra 500mg bid that was started during this admission for her concern for seizure. I spoke with ICU attending (Dr. Andre) regarding source of fever and he stated at this time unsure and CXR was normal. He agreed with pursuing Lumbar Puncture. I consulted Pain specialist for Lumbar Puncture. I placed the patient on Keppra 500 mg twice daily She is on Seizure precaution and pads Recommend aspirin 81 mg, Lipitor 40 mg nightly for secondary stroke prophylaxis Nephrology is consulted for hyponatremia Will defer the rest of the medical management to primary and other specialist Plan discussed with the patient, her family members ( was at bedside, son-in-law), ICU attending and the primary attending. Time with Patient: Less than 30
--- NOTE | 2024-06-05 14:44 | P.PN ---
Subjective Progress Note Date: 06/05/24 HISTORY OF PRESENT ILLNESS: This is a 69-year-old female who was seen in my office for the first time on May 30, 2020 for she presented to the office requiring a preoperative medical clearance regarding a surgical intervention that scheduled for July 05, 2024 for a prolapsed uterus and therefore she is in the office for evaluation, patient apparently appeared to have had history of hypertension her blood pressure was quite elevated in the office 161/110 patient has not taken any medication at this point in time, she stated that she is feeling fine at this point, she denies any prior history of any other health issues except for constipation as well as history of hyperlipidemia, patient was started on losartan hydrochlorothiazide 100/12.5 mg orally once every day, and the patient did take about 4 days of that apparently the patient was at home and she cannot collapsed and the family heard a thump on the floor, patient apparently did have a seizure activity possibly was not witnessed at that time, patient was rushed to the emergency department at [facility], had a CT scan of the brain did not show evidence of acute abnormalities, she did have a CT angiography of the carotid as well as the brain did not show evidence of any intracranial aneurysm or any dissection of the carotid artery, patient was found to have a sodium level of 119 and chloride of 87, apparently the patient did suffer from significant hyponatremia that could be the trigger for her seizure activity po ssible and she was hypotensive, she was started on IV fluid resuscitation, she was admitted to the intensive care unit, patient was quite unresponsive, so she was intubated in the emergency department for airway protection, and 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, patient was admitted to the ICU, she was seen today she is currently on the ventilator, she was seen by nephrology as well as by neurology, patient was started on seizure medication, she will have an EEG done, she was also started on vasopressin, and she was placed on Levophed because of hypotension, patient currently on AC mode with FiO2 of 40% PEEP of 5, and a tidal volume of 500, the plan is to extubate the patient tomorrow morning, and her next sodium level was 120 the last 1 was 122, we will continue to monitor the patient sodium very closely, and follow-up with the patient very closely patient may need to go for an MRI of the brain after she get disconnected from the ventilator. 06/05: Patient is laying down in bed in no apparent distress, she is currently on 2 L nasal cannula, she is just extubated in the ICU, she is more awake and more alert today, unfortunately she had a temperature yesterday her temperature maximum was 102, patient will have a blood cultures, sputum culture, chest x-ray did not show evidence of acute pneumonia, procalcitonin level is slightly elevated 0.13, patient sodium is better to 128, patient does not have any neck rigidity at this time, she does not have any focal neurological deficit, discussed with neurology possibility of lumbar puncture to rule out any aseptic meningitis versus bacterial meningitis, we will monitor the patient very closely, consult anesthesia/pain management service for lumbar puncture under fluoroscopy, patient appears to be a bit hypotensive, we will monitor the patient symptoms very closely, avoid hydrochlorothiazide may start on a small dose of amlodipine 5 mg once every day for blood pressure control if she she does not normalize over the next few hours. REVIEW OF SYSTEMS: Constitutional: Positive for documented fever, no chills, no night sweats. No weight change. Positive for weakness, fatigue or lethargy. No daytime sleepiness. EENT: No headache. No blurred vision or double vision, no loss of vision. No loss of Hearing, no ringing in the ears, no dizziness. No nasal drainage or congestion. No epistaxis. No sore throat. Lungs: No shortness of breath, no cough, no sputum production. No wheezing. Cardiovascular: No chest pain, no lower extremity edema. No palpitations. No paroxysmal nocturnal dyspnea. No orthopnea. No lightheadedness or dizziness. No syncopal episodes. Abdominal: Reports no abdominal pain. no nausea, vomiting. No diarrhea. no constipation. No bloody or tarry stools reports loss of appetite. Genitourinary: No dysuria, Ling catheter in place. Musculoskeletal: No myalgias. no muscle weakness, no gait dysfunction, no frequent falls. no back pain. No neck pain. Integumentary: No wounds, no lesions. No rash or pruritus. No unusual bruising. No change in hair or nails. Neurologic: No aphasia. No facial droop. No change in mentation. No head injury. No headache. No paralysis. No paresthesia. Psychiatric: No depression. No anxiety. No mood swings. Endocrine: No abnormal blood sugars. No weight change. PHYSICAL EXAMINATION: General: 69-year-old female laying down in bed in no apparent distress. HEENT: Head is atraumatic, normocephalic, pupils were equal round, reactive to light and accommodation, extraocular muscle movements are intact, mucous membranes of mouth are somewhat dry. Neck: Supple, no JVP, normal carotid upstroke bilaterally, no lymphadenopathy. Chest: Decreased breath sounds at the bases, few rhonchi, no extremity wheezes, no chest wall tenderness, no intercostal retractions. Heart: First heart sound is normal, second heart sound is normal there is no gallop or murmur. Abdomen: Soft, nontender, nondistended, positive bowel sounds. Extremities: There is no edema no calf tenderness DP +2 bilaterally. Neurologic examination: patient is awake alert and oriented x 3, cranial nerves II to XII appear gross intact, muscle power 5 out of 5 in upper and lower extremities bilaterally. ASSESSMENT AND PLAN: 1. Severe hypovolemic hyponatremia. Patient has been IV fluid in the form of normal saline at 50 cc an hour, her sodium today is 128, she is feeling a lot better, she is more awake and alert and she is off the ventilator. Repeat CMP tomorrow morning. 2. Acute event dependent respiratory failure due to airway protection. Continue patient on FiO2 of 40% tidal volume of 500 and PEEP of 5, she is extubated to oxygen nasal cannula. Chest x-ray did not show evidence of acute pneumonia. 3. Severe hypotension due to hypovolemia. Continue IV fluid resuscitation, blood pressure is back to normal. 4. Metabolic encephalopathy likely due to hyponatremia rule out seizure activity. Neurology is following, she is back to baseline, she will need to have a MRI of the brain with and without sonny. 5. Hypertension and hypertensive cardiovascular disease . We will consider starting the patient on amlodipine 5 mg once every day, avoid hydrochlorothiazide and thiazide diuretics in general. 6. Mixed hyperlipidemia her LDL cholesterol is greater than 160 patient will need to go on atorvastatin as an outpatient. 7. Elevated TSH level with a normal free T4 and free T3 we will recheck as an outpatient.. 7. Vitamin D deficiency. Patient will need to be started on vitamin D supplement as an outpatient. 8. History of uterine prolapse she is scheduled to go for surgical intervention at the end of next month. 9. Chronic tobacco use and dependence. Patient will need to have a lung cancer screening as an outpatient with low-dose CT scan of the chest. 10. Colon cancer screening will need to be addressed as an outpatient. 11. DVT prophylaxis. Continue patient on heparin 5000 units subcutaneous every 12 hours., continue with bilateral knee-high MANNY hose. 12. GI prophylaxis. Continue patient on PPI. 13. Acute febrile illness. Patient chest x-ray did not show evidence of acute abnormalities, check blood cultures and the patient continued to have fever, consult pain management/anesthesia service for possible lumbar puncture . 14. Patient is full code. Objective - Vital Signs Vital signs: Vital Signs Temp 99.9 F H 06/05/24 12:00 Pulse 87 06/05/24 12:15 Resp 18 06/05/24 12:15 BP 141/72 06/05/24 12:00 Pulse Ox 94 L 06/05/24 12:15 FiO2 40 06/05/24 11:01 Intake & Output 06/04/24 06/05/24 06/05/24 18:59 06:59 18:59 Intake Total 621.268 983.446 841.427 Output Total 680 1000 675 Balance -58.732 -16.554 166.427 Weight 66.2 kg 64.2 kg Intake: IV 290 600 380 0.9ns 140 Invasive Line 1 60 Invasive Line 2 20 Sodium Chloride 0.9% 1, 150 000 ml @ 50 mls/hr IV . Q20H [facility] Rx#:[id number] Sodium Chloride 0.9% 1, 600 300 000 ml @ 50 mls/hr IV . Q20H [facility] Rx#:[id number] Intake, IV Titration 221.268 103.446 191.427 Amount Norepinephrine 32 mg In 41.559 3.403 Sodium Chloride 0.9% 218 ml @ 0.03 MCG/KG/MIN 1. 021 mls/hr IV .Q24H [facility] Rx#:[id number] Norepinephrine 8 mg In 0.043 161.438 Sodium Chloride 0.9% 250 ml @ 0.03 MCG/KG/MIN 3. 843 mls/hr IV .Q24H [facility] Rx#:[id number] Sodium Chloride 0.9% 1, 50 000 ml @ 50 mls/hr IV . Q20H [facility] Rx#:[id number] fentaNYL (PF). 1,000 mcg 49.475 In Sodium Chloride 0.9% 80 ml @ 0.5 MCG/KG/HR 3. 629 mls/hr IV .Q24H [facility] Rx#:[id number] propofoL 1,000 mg In 80.234 100 29.989 Empty Bag 1 bag @ 15 MCG/ KG/MIN 5.958 mls/hr IV . [id number] [facility] Rx#:[id number] Tube Feeding 80 280 210 Other 30 60 Output: Gastric Drainage 200 Urine 680 1000 475 Other: Voiding Method Indwelling Catheter Indwelling Catheter Indwelling Catheter # Bowel Movements 0 ABP, PAP, CO, CI - Last Documented Arterial Blood Pressure 156/62 - Labs CBC & Chem 7: 06/05/24 05:20 06/05/24 12:00 Labs: Abnormal Lab Results - Last 24 Hours (Table) 06/03/24 06/04/24 06/04/24 Range/Units 21:17 16:56 17:23 WBC (3.8-10.6) k/uL RBC (3.80-5.40) m/uL Hgb (11.4-16.0) gm/dL Hct (34.0-46.0) % Neutrophils # (1.3-7.7) k/uL ABG pO2 (83-108) mmHg ABG HCO3 (21-25) mmol/L ABG Total CO2 (19-24) mmol/L ABG O2 Saturation (94-97) % Sodium 125 L (137-145) mmol/L Potassium (3.5-5.1) mmol/L BUN (7-17) mg/dL Creatinine (0.52-1.04) mg/dL Glucose (74-99) mg/dL POC Glucose (mg/dL) 125 H (70-110) mg/dL Osmolality 259 L (275-295) mOsm/kg Calcium (8.4-10.2) mg/dL 06/04/24 06/05/24 06/05/24 Range/Units 23:15 04:45 04:45 WBC 11.6 H (3.8-10.6) k/uL RBC 3.01 L (3.80-5.40) m/uL Hgb 9.3 L D (11.4-16.0) gm/dL Hct 27.9 L (34.0-46.0) % Neutrophils # 9.9 H (1.3-7.7) k/uL ABG pO2 (83-108) mmHg ABG HCO3 (21-25) mmol/L ABG Total CO2 (19-24) mmol/L ABG O2 Saturation (94-97) % Sodium 125 L (137-145) mmol/L Potassium 3.2 L (3.5-5.1) mmol/L BUN 5 L (7-17) mg/dL Creatinine 0.41 L (0.52-1.04) mg/dL Glucose 123 H (74-99) mg/dL POC Glucose (mg/dL) 136 H (70-110) mg/dL Osmolality (275-295) mOsm/kg Calcium (8.4-10.2) mg/dL 06/05/24 06/05/24 06/05/24 Range/Units 05:05 05:20 05:20 WBC 14.4 H (3.8-10.6) k/uL RBC 3.54 L (3.80-5.40) m/uL Hgb 10.7 L (11.4-16.0) gm/dL Hct 32.2 L (34.0-46.0) % Neutrophils # 12.3 H (1.3-7.7) k/uL ABG pO2 111 H (83-108) mmHg ABG HCO3 26 H (21-25) mmol/L ABG Total CO2 27 H (19-24) mmol/L ABG O2 Saturation 98.9 H (94-97) % Sodium 128 L (137-145) mmol/L Potassium 3.2 L (3.5-5.1) mmol/L BUN 4 L (7-17) mg/dL Creatinine 0.40 L (0.52-1.04) mg/dL Glucose 122 H (74-99) mg/dL POC Glucose (mg/dL) (70-110) mg/dL Osmolality (275-295) mOsm/kg Calcium 8.3 L (8.4-10.2) mg/dL 06/05/24 Range/Units 12:17 WBC (3.8-10.6) k/uL RBC (3.80-5.40) m/uL Hgb (11.4-16.0) gm/dL Hct (34.0-46.0) % Neutrophils # (1.3-7.7) k/uL ABG pO2 (83-108) mmHg ABG HCO3 (21-25) mmol/L ABG Total CO2 (19-24) mmol/L ABG O2 Saturation (94-97) % Sodium (137-145) mmol/L Potassium (3.5-5.1) mmol/L BUN (7-17) mg/dL Creatinine (0.52-1.04) mg/dL Glucose (74-99) mg/dL POC Glucose (mg/dL) 117 H (70-110) mg/dL Osmolality (275-295) mOsm/kg Calcium (8.4-10.2) mg/dL Microbiology - Last 24 Hours (Table) 06/03/24 20:49 Gram Stain - Preliminary Sputum Sputum Culture - Preliminary
[2024-06-05 17:58] LABS: Glucose,Whole Blood 93 mg/dL (70-110)
[2024-06-05] MEDS ORDERED: HEPARIN SODIUM,PORCINE 5,000 UNIT/ML 1 ML VIAL ONE (21:00)
[2024-06-05] MEDS ORDERED: levETIRAcetam IV 500 MG/5 ML VIAL ONE (21:00)
[2024-06-06] MEDS: LEVOTHYROXINE IVP 100 MCG/5 ML VIAL IV SCH (05:19)
[2024-06-06 06:58] LABS: Basophils % (A) 0 %; Eosinophils # (A) 0.3 k/uL (0-0.7); Eosinophils % (A) 2 %; HCT 31.8 % (34.0-46.0); HGB 10.2 gm/dL (11.4-16.0); Lymphocytes % (A) 9 %; MCV 93.9 fL (80.0-100.0); Mean Platelet Volume 8.7; Monocytes # (A) 0.6 k/uL (0-1.0); Monocytes % (A) 5 %; Neutrophils # (A) 8.8 k/uL (1.3-7.7); Neutrophils % (A) 82 %; Platelet Count 177 k/uL (150-450); RBC 3.38 m/uL (3.80-5.40); RDW 13.3 % (11.5-15.5); WBC 10.8 k/uL (3.8-10.6)
[2024-06-06 08:00] LABS: African American GFR (CKD) >90 (>60 ml/min/1.73 sqM); Anion Gap 6 mmol/L; Blood Urea Nitrogen 4 mg/dL (7-17); Calcium 8.3 mg/dL (8.4-10.2); Carbon Dioxide 24 mmol/L (22-30); Chloride 102 mmol/L (98-107); Glucose 81 mg/dL (74-99); Non-African American GFR(CKD) >90 (>60 ml/min/1.73 sqM); Potassium 3.3 mmol/L (3.5-5.1); Sodium 132 mmol/L (137-145)
[2024-06-06 08:14] LABS: Creatine Kinase 1532 U/L (30-135)
[2024-06-06] MEDS: POTASSIUM BICARBONATE/CIT AC 20 MEQ TABLET.EFF NG-TUBE SCH (08:48)
--- NOTE | 2024-06-06 09:40 | P.PN ---
Subjective Patient is seen in follow-up for hyponatremia. Sodium level 132 this morning. Extubated. Hemodynamically stable. Oral intake poor. Vital signs are stable. General: Resting in bed. HEENT: On nasal cannula. LUNGS: No audible rhonchi or wheezes. HEART: Rate and Rhythm are regular. ABDOMEN: No distention. EXTREMITITES: No edema. Objective - Vital Signs Vital signs: Vital Signs Temp 98.2 F 06/06/24 08:00 Pulse 80 06/06/24 09:00 Resp 24 06/06/24 09:00 BP 137/64 06/06/24 09:00 Pulse Ox 96 06/06/24 09:00 FiO2 40 06/05/24 11:01 Intake & Output 06/05/24 06/06/24 06/06/24 18:59 06:59 18:59 Intake Total 1271.427 150 175 Output Total 1330 225 180 Balance -58.573 -75 -5 Intake: IV 770 150 175 Invasive Line 1 90 Invasive Line 2 30 Sodium Chloride 0.9% 1, 650 150 100 000 ml @ 50 mls/hr IV . Q20H [facility] Rx#:[id number] Sodium Chloride 0.9% 1, 75 000 ml @ 75 mls/hr IV . [id number] [facility] Rx#:[id number] Intake, IV Titration 191.427 Amount Norepinephrine 8 mg In 161.438 Sodium Chloride 0.9% 250 ml @ 0.03 MCG/KG/MIN 3. 843 mls/hr IV .Q24H [facility] Rx#:[id number] propofoL 1,000 mg In 29.989 Empty Bag 1 bag @ 15 MCG/ KG/MIN 5.958 mls/hr IV . [id number] [facility] Rx#:[id number] Oral 100 Tube Feeding 180 Other 30 Output: Gastric Drainage 200 Urine 1130 225 180 Other: Voiding Method Indwelling Catheter Indwelling Catheter # Bowel Movements 0 ABP, PAP, CO, CI - Last Documented Arterial Blood Pressure 156/62 - Labs CBC & Chem 7: 06/06/24 06:17 06/06/24 06:17 Labs: Abnormal Lab Results - Last 24 Hours (Table) 06/05/24 06/06/24 06/06/24 Range/Units 12:17 06:17 06:17 WBC 10.8 H (3.8-10.6) k/uL RBC 3.38 L (3.80-5.40) m/uL Hgb 10.2 L (11.4-16.0) gm/dL Hct 31.8 L (34.0-46.0) % Neutrophils # 8.8 H (1.3-7.7) k/uL Sodium 132 L (137-145) mmol/L Potassium 3.3 L (3.5-5.1) mmol/L BUN 4 L (7-17) mg/dL Creatinine 0.43 L (0.52-1.04) mg/dL POC Glucose (mg/dL) 117 H (70-110) mg/dL Calcium 8.3 L (8.4-10.2) mg/dL Creatine Kinase 1532 H* (30-135) U/L Microbiology - Last 24 Hours (Table) 06/04/24 15:14 Blood Culture - Preliminary Blood 06/03/24 20:49 Gram Stain - Preliminary Sputum Sputum Culture - Preliminary Assessment and Plan Plan: Assessment: 1. Hypovolemic hyponatremia improved with normal saline. Also component of thiazide diuretic use. Sodium level 132 this morning. Urine sodium 71 and urine osmolality 334. TSH elevated at 11. Free T4 normal. Cortisol 14.1. 2. Status post fall. 3. Altered mental status possibly from hyponatremia and questionable seizure. 4. Hypotension status post Levophed. 5. Hypokalemia from diuretic use and poor intake. 6. Mild rhabdomyolysis. CK level 1532 this morning. Plan: Increased rate of normal saline to 75 cc an hour. Avoid thiazide diuretics. Replace potassium.
[2024-06-06] MEDS: SODIUM CHLORIDE 0.9% 1,000 ML IV SCH (10:07)
[2024-06-06 11:01] LABS: Glucose,Whole Blood 75 mg/dL (70-110)
--- NOTE | 2024-06-06 11:18 | P.PN ---
Subjective Progress Note Date: 06/06/24 Principal diagnosis: Respiratory failure, hyponatremia, seizure. Patient is a 69-year-old white female. Past medical history is largely unknown, as the patient is currently intubated mechanical ventilator and unable to participate in interview. Apparently, patient was at home in the bathroom, family heard a crashing sound. Patient was found on the ground, altered. She was brought in via EMS, noted to be agitated and confused by ER provider. She had shallow respirations. Patient was ultimately intubated for airway protection. Initial CT of the brain and C-spine did not show any acute intracranial process. Remote left frontal lobe injury. No evidence of cervical spine fracture. Brain CTA does not show any evidence of intracranial high-grade stenosis or intracranial aneurysm. No evidence of dissection of the cervical internal carotid arteries or vertebral arteries or significant stenosis at the carotid bifurcations. Patient was felt to have possible seizure-like activity. Nystagmus was noted. She did receive a dose of Ativan in the emergency department. I am evaluating this patient in trauma bay 2. She is currently intubated mechanical ventilator. Postintubation chest x-ray shows the endotracheal tube approximately 3.6 cm above the jignesh. Nasogastric tube with the distal tip projecting underneath the diaphragm. No focal infiltrates or evidence of pneumonia. No obvious acute cardiopulmonary disease process. Postintubation chest x-ray shows a PaO2 of 379, pCO2 of 51, pH of 7.33. Current ventilator settings are assist-control, respiratory rate 16, tidal volume 350, FiO2 was dropped to 50%, and PEEP of 5. She is breathing slightly above set the rate around 18 breaths/min. No significant airway secretions. Peak pressure 23. She is sedated on a combination of propofol which is infusing at 35 mcg/kg/min as well as fentanyl at 2 mcg/kg/h. No obvious clinical signs of seizure activity. She awakes to tactile stimuli, but then falls quickly back to sleep. Does not follow any commands. Moves all 4 extremities. She is requiring high-dose norepinephrine which is currently running at 0.19 mcg/kg/min. ER physician is going to insert a central line catheter. She did receive a 1 L normal saline bolus in the emergency department. She was noted to be hyponatremic, suspect hypovolemic. Sodium level on arrival 119. Appropriate osmolality and urine studies pending. Normal saline infusing at 50 mL/h. Most recent BMP: Sodium 122, potassium 3.2, chloride 99, serum bicarb 21, BUN 8, creatinine 0.35, glucose 119. Creatinine kinase 1044. Ammonia 15. Troponin less than 0.012. TSH 11, free T4 1.73. Urinalysis not very remarkable for infection. Urine drug screen negative. Serum alcohol level less than 10. CBC: WBC count 12.4, hemoglobin 13.6, hematocrit 40.2, platelets 307. X-ray of the pelvis showed mild step-off of the right inferior pubic ramus concerning for possible fracture. Patient's condition is currently critical. Patient will be admitted to the intensive care unit as soon as bed available. Progress note dated June 05, 2024. 69-year-old female who was brought into the emergency department, with mental status changes, a fall, and possible seizure, as well as hyponatremia. The patient was intubated for airway protection. She remains on the ventilator. She is on volume assist-control, rate 16, tidal volume 350, FiO2 40%, PEEP of 5. Blood gases show pO2 of 111, pCO2 of 43, pH of 7.38. The patient is getting propofol at 30 mcg/kg/min, saline at 50 cc an hour, and vital AF at 30 cc an hour, which is goal. Today, the patient should have a daily interruption of sedation, and a spontaneous breathing trial. Labs include a white count 14.4, hemoglobin 10.7, hematocrit 32.2, and a platelet count is normal. Sodium 128, potassium 3.2, chlorides 102, CO2 26, BUN 4, creatinine 0.40. Glucose is 122. Calcium is 8.3. Chest x-ray shows a normal chest x-ray. No acute process noted. Progress note dated June 06, 2024. 69-year-old female brought to the emergency department, with mental status changes, a fall, possible seizure, and also hyponatremia. The patient was successfully extubated yesterday. She appears to be hypothyroid, and she was given Synthroid 100 mg IV push, and will start 125 mg orally, tomorrow. She continues on oxygen at 2 L. She is getting saline at 75 cc an hour. The neurologist, believes the patient would benefit from a lumbar puncture, as we do not have any clear-cut indication of what is going on with this patient. She appears relatively alert and lucid today, and stated that she wanted to go home. White count is 10.8, hemoglobin 10.2, hematocrit 31.8, platelet count was normal. Sodium 132, potassium 3.3, chlorides 102, CO2 24, BUN 4, creatinine 0.43. CK was 1532. Calcium 8.3. Blood and sputum sampling is thus far negative. No chest x-ray today. Objective - Vital Signs Vital signs: Vital Signs Temp 98.2 F 06/06/24 08:00 Pulse 80 06/06/24 09:00 Resp 16 06/06/24 09:30 BP 137/64 06/06/24 09:00 Pulse Ox 95 06/06/24 09:30 FiO2 40 06/05/24 11:01 Intake & Output 06/05/24 06/06/24 06/06/24 18:59 06:59 18:59 Intake Total 1271.427 150 175 Output Total 1330 225 180 Balance -58.573 -75 -5 Intake: IV 770 150 175 Invasive Line 1 90 Invasive Line 2 30 Sodium Chloride 0.9% 1, 650 150 100 000 ml @ 50 mls/hr IV . Q20H [facility] Rx#:[id number] Sodium Chloride 0.9% 1, 75 000 ml @ 75 mls/hr IV . [id number] [facility] Rx#:[id number] Intake, IV Titration 191.427 Amount Norepinephrine 8 mg In 161.438 Sodium Chloride 0.9% 250 ml @ 0.03 MCG/KG/MIN 3. 843 mls/hr IV .Q24H [facility] Rx#:[id number] propofoL 1,000 mg In 29.989 Empty Bag 1 bag @ 15 MCG/ KG/MIN 5.958 mls/hr IV . [id number] [facility] Rx#:[id number] Oral 100 Tube Feeding 180 Other 30 Output: Gastric Drainage 200 Urine 1130 225 180 Other: Voiding Method Indwelling Catheter Indwelling Catheter Indwelling Catheter # Bowel Movements 0 ABP, PAP, CO, CI - Last Documented Arterial Blood Pressure 156/62 - Exam No acute distress, awake, and alert, currently on 2 L of oxygen. No respiratory distress. HEENT examination is grossly unremarkable. Neck supple. Full range of motion. No adenopathy thyromegaly or neck vein distention. Cardiovascular examination reveals regular rhythm rate. S1-S2 normal. No S3 or S4. No discernible murmur noted. Lungs reveal scattered mild rhonchi. No wheezes or crackles. Breath sounds equal. Abdomen soft bowel sounds are heard. No masses or tenderness. Extremities are intact. No cyanosis clubbing or edema. Skin is without rash or lesion. Neurologic examination is brief but nonfocal. - Labs CBC & Chem 7: 06/06/24 06:17 06/06/24 06:17 Labs: Abnormal Lab Results - Last 24 Hours (Table) 06/05/24 06/06/24 06/06/24 Range/Units 12:17 06:17 06:17 WBC 10.8 H (3.8-10.6) k/uL RBC 3.38 L (3.80-5.40) m/uL Hgb 10.2 L (11.4-16.0) gm/dL Hct 31.8 L (34.0-46.0) % Neutrophils # 8.8 H (1.3-7.7) k/uL Sodium 132 L (137-145) mmol/L Potassium 3.3 L (3.5-5.1) mmol/L BUN 4 L (7-17) mg/dL Creatinine 0.43 L (0.52-1.04) mg/dL POC Glucose (mg/dL) 117 H (70-110) mg/dL Calcium 8.3 L (8.4-10.2) mg/dL Creatine Kinase 1532 H* (30-135) U/L Microbiology - Last 24 Hours (Table) 06/04/24 15:14 Blood Culture - Preliminary Blood 06/03/24 20:49 Gram Stain - Preliminary Sputum Sputum Culture - Preliminary Assessment and Plan Assessment: S/P fall, secondary to possible hyponatremia, and/or seizure. Altered mental status, unable to rule out possible seizure. S/P intubation and mechanical ventilator management, 06/03/2024, with successful extubation, on June 05, 2024. Hyponatremia. Hypotension and shock, recovered. Sinus bradycardia, possibly secondary to medication effect and propofol. Subclinical hypothyroidism. Hypokalemia. Female genital prolapse. Plan: Plan dated June 05, 2024. The patient appears to be relatively stable. The patient blood gases are very good including a pO2 111, pCO2 43, pH is 7.38. The patient is on propofol, and saline, as well as tube feedings. We will do a daily interruption of sedation, and a spontaneous breathing trial. Labs, x-rays, and all medications are reviewed. Hopefully, the patient will be able to be weaned, and extubated quickly. Plan dated June 06, 2024. The patient is seen in room 253. The patient was successfully extubated yesterday, June 05. She continues on Synthroid, for hypothyroidism. She is on 2 L of oxygen. She is getting saline at 75 cc an hour. Labs, x-rays, and medications are reviewed. She is not requiring any antibiotics. Her procalcitonin level was normal. Neurology is concerned, and thinks that the patient may benefit from a lumbar puncture. The patient herself, wants to be discharged home. We will continue to follow make recommendations along the way. Prognosis is guarded. Time with Patient: Greater than 30
[2024-06-06 14:30] VITALS: BMI 24.3
--- NOTE | 2024-06-06 15:21 | P.PCN ---
Date of Procedure: 06/06/24 Procedure(s) Performed: Preoperative diagnosis:1-altered mental status. 2-fever Post operative diagnoses: Same as preop diagnosis Procedure= lumbar puncture Anesthesia= local infiltration with lidocaine 1% 2 mL. Condition: critical Complication: none. Description of the procedure procedure risk and benefits discussed with the patient and family, consent signed. Patient and the procedure area placed in sitting position, back prepped with chlorhexidine 3 times been local infiltration of the skin and subcutaneous tissue with lidocaine 1% 2 mL for skin and subcu interstitial frustrations at L4 5 levels then 22-gauge Quincke-type needle advanced slowly at L4- 5 interlaminar space there was positive cerebrospinal fluid which was clear, no heme, no paresthesia ,total of 9 ML of clear cerebrospinal fluid collected in 4 different tubes 2-2-1/2 mL in each, then the needle removed and a Band-Aid applied and patient tolerated the procedure well without any complications.
--- NOTE | 2024-06-06 15:58 | P.PN ---
Subjective Progress Note Date: 06/06/24 I am following up with the patient and she feels drastically better compared to initial presentation. Denies any headache, focal weakness, visual disturbance. Denies any neck pain. She consented for the lumbar puncture and pending. She had fever yesterday and in the afternoon but no further fevers Objective - Vital Signs Vital signs: Vital Signs Temp 97.8 F 06/06/24 13:45 Pulse 79 06/06/24 13:45 Resp 20 06/06/24 13:45 BP 140/65 06/06/24 13:45 Pulse Ox 92 L 06/06/24 13:45 FiO2 40 06/05/24 11:01 Intake & Output 06/05/24 06/06/24 06/06/24 18:59 06:59 18:59 Intake Total 1271.427 150 175 Output Total 1330 225 180 Balance -58.573 -75 -5 Weight 64.2 kg Intake: IV 770 150 175 Invasive Line 1 90 Invasive Line 2 30 Sodium Chloride 0.9% 1, 650 150 100 000 ml @ 50 mls/hr IV . Q20H [facility] Rx#:[id number] Sodium Chloride 0.9% 1, 75 000 ml @ 75 mls/hr IV . [id number] [facility] Rx#:[id number] Intake, IV Titration 191.427 Amount Norepinephrine 8 mg In 161.438 Sodium Chloride 0.9% 250 ml @ 0.03 MCG/KG/MIN 3. 843 mls/hr IV .Q24H [facility] Rx#:[id number] propofoL 1,000 mg In 29.989 Empty Bag 1 bag @ 15 MCG/ KG/MIN 5.958 mls/hr IV . [id number] [facility] Rx#:[id number] Oral 100 Tube Feeding 180 Other 30 Output: Gastric Drainage 200 Urine 1130 225 180 Other: Voiding Method Indwelling Catheter Indwelling Catheter Indwelling Catheter # Bowel Movements 0 ABP, PAP, CO, CI - Last Documented Arterial Blood Pressure 156/62 - Exam General: Lying in bed and is not in acute distress. HENT: Supple neck. Neuro: Patient is awake alert oriented to self place and time. Is following simple commands. No aphasia no neglect. Pupils are round equal reactive to light. Visual caballero are full. Extraocular movements intact no nystagmus No facial weakness. No dysarthria Motor left in all extremities above gravity equally. Some of the other work-up in our facility consisted of: Sodium was 119-->128 white Blood cell is 12.4 on presentation-->14.4K Ammonia is 15 CK level is 1444 TSH is 11 Free T4 is 1.73 Reviewed the rest of the lab work CT of the head is reported as no acute intracranial process. Remote left frontal lobe injury. Personally reviewed the CT and I agree that the patient does have an old left frontal lobe injury next CT cervical spine is reported as no evidence cervical spine fracture. Mild multilevel degenerative disc disease. Neck CT angiography of the head and neck is reported as extremely limited exam due to motion and some areas given limitations no evidence of intracranial high-grade stenosis or intracranial aneurysm. No evidence of dissection cervical internal carotid artery or vertebral artery or any evidence of significant stenosis at the carotid bifurcation 2D echo was reported as moderately increased left ventricle wall thickness. Ejection fraction of 55-60. Routine EEG: Is abnormal. The background slowing is suggestive of mild encephalopathy. There is no focal slowing, epileptiform discharges or seizure on the EEG. - Labs CBC & Chem 7: 06/06/24 06:17 06/06/24 06:17 Labs: Abnormal Lab Results - Last 24 Hours (Table) 06/06/24 06/06/24 Range/Units 06:17 06:17 WBC 10.8 H (3.8-10.6) k/uL RBC 3.38 L (3.80-5.40) m/uL Hgb 10.2 L (11.4-16.0) gm/dL Hct 31.8 L (34.0-46.0) % Neutrophils # 8.8 H (1.3-7.7) k/uL Sodium 132 L (137-145) mmol/L Potassium 3.3 L (3.5-5.1) mmol/L BUN 4 L (7-17) mg/dL Creatinine 0.43 L (0.52-1.04) mg/dL Calcium 8.3 L (8.4-10.2) mg/dL Creatine Kinase 1532 H* (30-135) U/L Microbiology - Last 24 Hours (Table) 06/04/24 15:14 Blood Culture - Preliminary Blood 06/03/24 20:49 Gram Stain - Preliminary Sputum Sputum Culture - Preliminary Assessment and Plan Assessment: This is a 69-year-old woman with underlying history of hypertension who refused to be on medication until recently she was placed on medication for the past several days and that yesterday she had an episode where she was in the bathroom and the heard a scream and then she fell on the ground and was not verbally responsive. ED she had fixed gaze deviation which has resolved after Ativan. 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 She was also found to have sodium of 119. Patient episode of screaming with confusion and gaze deviation is concerning for probable new onset seizure: Seizure seems to be provoked due to hyponatremia--mentation is improving. EEG is mild encephalopathy but no seizure or discharges. Pyrexia as high as 102.5F on 06/04/2024 and had fevers yesterday in afternoon: Unsure exact cause. Has supple neck. She presented afebrile on presentation. Possible aspiration pneumonia. R/O meningoencephalitis but appears unlikely--mentation is drastically better. 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 Continue Keppra 500mg bid that was started during this admission for her concern for seizure. I spoke with ICU attending (Dr. Andre) regarding source of fever and he stated at this time unsure and CXR was normal. Pending Lumbar Puncture and will perfo rmed today by Dr. Dejesus. She is on Seizure precaution and pads Recommend aspirin 81 mg, Lipitor 40 mg nightly for secondary stroke prophylaxis Nephrology is consulted for hyponatremia Will defer the rest of the medical management to primary and other specialist Plan discussed with the patient, her family members (children) and her nurse. Time with Patient: Less than 30
[2024-06-06 16:50] LABS: Glucose,CSF 55 mg/dL (40-70); Total Protein,CSF 35 mg/dL (12-60)
[2024-06-06 17:17] LABS: Appearance,CSF Clear
[2024-06-06 17:18] LABS: CSF Tube Number 4; Nucleated Cells, CSF 0 u/L (0-5); Red Blood Cell,CSF 0 u/L (0-10)
[2024-06-07] MEDS: LEVOTHYROXINE 125 MCG TAB PO SCH (06:39)
[2024-06-07] MEDS: IPRATROPIUM-ALBUTEROL 3 ML NEB INHALATION SCH (07:37)
--- NOTE | 2024-06-07 10:48 | P.PN ---
Subjective Patient is seen in follow-up for hyponatremia. Sodium level 132 yesterday. On normal saline. Transferred out of ICU. Oral intake fair. Vital signs are stable. General: Resting in bed. HEENT: On nasal cannula. LUNGS: No audible rhonchi or wheezes. HEART: Rate and Rhythm are regular. ABDOMEN: No distention. EXTREMITITES: No edema. Objective - Vital Signs Vital signs: Vital Signs Temp 97.4 F L 06/07/24 07:47 Pulse 75 06/07/24 07:47 Resp 17 06/07/24 07:47 BP 152/85 06/07/24 07:47 Pulse Ox 94 L 06/07/24 07:47 FiO2 21 06/07/24 07:37 Intake & Output 06/06/24 06/07/24 06/07/24 18:59 06:59 18:59 Intake Total 175 590 Output Total 180 Balance -5 590 Weight 64.2 kg Intake: IV 175 Sodium Chloride 0.9% 1, 100 000 ml @ 50 mls/hr IV . Q20H [facility] Rx#:[id number] Sodium Chloride 0.9% 1, 75 000 ml @ 75 mls/hr IV . [id number] [facility] Rx#:[id number] Oral 590 Output: Urine 180 Other: Voiding Method Indwelling Catheter Indwelling Catheter # Voids 4 ABP, PAP, CO, CI - Last Documented Arterial Blood Pressure 156/62 - Labs CBC & Chem 7: 06/06/24 06:17 06/06/24 06:17 Labs: Abnormal Lab Results - Last 24 Hours (Table) 06/07/24 Range/Units 06:47 Creatine Kinase 2189 H* (30-135) U/L Microbiology - Last 24 Hours (Table) 06/03/24 20:49 Gram Stain - Final Sputum Sputum Culture - Final 06/06/24 15:13 CSF Gram Stain - Preliminary Cerebral Spinal Fluid 06/04/24 15:14 Blood Culture - Preliminary Blood Assessment and Plan Plan: Assessment: 1. Hypovolemic hyponatremia improved with normal saline. Also component of thiazide diuretic use. Sodium level 132 yesterday. Urine sodium 71 and urine osmolality 334. TSH elevated at 11. Free T4 normal. Cortisol 14.1. 2. Status post fall. 3. Altered mental status possibly from hyponatremia and questionable seizure. Improved. 4. Hypotension status post Levophed. Now blood pressure on the higher side. 5. Hypokalemia from diuretic use and poor intake. Replaced. 6. Mild rhabdomyolysis. CK level 1532 t trending up and is 2189 this morning. Not on statin. Plan: Maintain normal saline at 75 cc an hour. Avoid thiazide diuretics. Replace electrolytes as needed. Follow-up morning labs. Add amlodipine 5 mg once daily for
--- NOTE | 2024-06-07 12:57 | P.PN ---
Subjective Progress Note Date: 06/07/24 Patient is a 69-year-old white female. Past medical history is largely unknown, as the patient is currently intubated mechanical ventilator and unable to participate in interview. Apparently, patient was at home in the bathroom, family heard a crashing sound. Patient was found on the ground, altered. She was brought in via EMS, noted to be agitated and confused by ER provider. She had shallow respirations. Patient was ultimately intubated for airway protection. Initial CT of the brain and C-spine did not show any acute intracranial process. Remote left frontal lobe injury. No evidence of cervical spine fracture. Brain CTA does not show any evidence of intracranial high-grade stenosis or intracranial aneurysm. No evidence of dissection of the cervical internal carotid arteries or vertebral arteries or significant stenosis at the carotid bifurcations. Patient was felt to have possible seizure-like activity. Nystagmus was noted. She did receive a dose of Ativan in the emergency dep artment. I am evaluating this patient in trauma bay 2. She is currently intubated mechanical ventilator. Postintubation chest x-ray shows the endotracheal tube approximately 3.6 cm above the jignesh. Nasogastric tube with the distal tip projecting underneath the diaphragm. No focal infiltrates or evidence of pneumonia. No obvious acute cardiopulmonary disease process. Postintubation chest x-ray shows a PaO2 of 379, pCO2 of 51, pH of 7.33. Current ventilator settings are assist-control, respiratory rate 16, tidal volume 350, FiO2 was dropped to 50%, and PEEP of 5. She is breathing slightly above set the rate around 18 breaths/min. No significant airway secretions. Peak pressure 23. She is sedated on a combination of propofol which is infusing at 35 mcg/kg/min as well as fentanyl at 2 mcg/kg/h. No obvious clinical signs of seizure activity. She awakes to tactile stimuli, but then falls quickly back to sleep. Does not follow any commands. Moves all 4 extremities. She is req uiring high-dose norepinephrine which is currently running at 0.19 mcg/kg/min. ER physician is going to insert a central line catheter. She did receive a 1 L normal saline bolus in the emergency department. She was noted to be hyponatremic, suspect hypovolemic. Sodium level on arrival 119. Appropriate osmolality and urine studies pending. Normal saline infusing at 50 mL/h. Most recent BMP: Sodium 122, potassium 3.2, chloride 99, serum bicarb 21, BUN 8, creatinine 0.35, glucose 119. Creatinine kinase 1044. Ammonia 15. Troponin less than 0.012. TSH 11, free T4 1.73. Urinalysis not very remarkable for infection. Urine drug screen negative. Serum alcohol level less than 10. CBC: WBC count 12.4, hemoglobin 13.6, hematocrit 40.2, platelets 307. X-ray of the pelvis showed mild step-off of the right inferior pubic ramus concerning for possible fracture. Patient's condition is currently critical. Patient will be admitted to the intensive care unit as soon as bed available. Progress note dated June 05, 2024. 69-year-old female who was brought into the emergency department, with mental status changes, a fall, and possible seizure, as well as hyponatremia. The patient was intubated for airway protection. She remains on the ventilator. She is on volume assist-control, rate 16, tidal volume 350, FiO2 40%, PEEP of 5. Blood gases show pO2 of 111, pCO2 of 43, pH of 7.38. The patient is getting propofol at 30 mcg/kg/min, saline at 50 cc an hour, and vital AF at 30 cc an hour, which is goal. Today, the patient should have a daily interruption of sedation, and a spontaneous breathing trial. Labs include a white count 14.4, hemoglobin 10.7, hematocrit 32.2, and a platelet count is normal. Sodium 128, potassium 3.2, chlorides 102, CO2 26, BUN 4, creatinine 0.40. Glucose is 122. Calcium is 8.3. Chest x-ray shows a normal chest x-ray. No acute process noted. Progress note dated June 06, 2024. 69-year-old female brought to the emergency department, with mental status changes, a fall, possible seizure, and also hyponatremia. The patient was successfully extubated yesterday. She appears to be hypothyroid, and she was given Synthroid 100 mg IV push, and will start 125 mg orally, tomorrow. She continues on oxygen at 2 L. She is getting saline at 75 cc an hour. The neurologist, believes the patient would benefit from a lumbar puncture, as we do not have any clear-cut indication of what is going on with this patient. She appears relatively alert and lucid today, and stated that she wanted to go home. White count is 10.8, hemoglobin 10.2, hematocrit 31.8, platelet count was normal. Sodium 132, potassium 3.3, chlorides 102, CO2 24, BUN 4, creatinine 0.43. CK was 1532. Calcium 8.3. Blood and sputum sampling is thus far negative. No chest x-ray today. The patient is seen today June 07, 2024 in follow-up on the regular medical floor. She is currently resting comfortably in bed. Awake and alert in no acute distress. She is maintaining good O2 saturations in the 90s on room air. She has normal saline at 75 mL/h. Her sodium is 132. Creatinine kinase 2189. Cerebrospinal fluid was clear and colorless with glucose of 55 and a total protein of 35. Cultures revealing no growth. She is continued on heparin for DVT prophylaxis. Remains on bronchodilators. She is anxious to go home. Objective - Vital Signs Vital signs: Vital Signs Temp 97.4 F L 06/07/24 07:47 Pulse 76 06/07/24 11:33 Resp 17 06/07/24 07:47 BP 152/85 06/07/24 07:47 Pulse Ox 94 L 06/07/24 07:47 FiO2 21 06/07/24 07:37 Intake & Output 06/06/24 06/07/24 06/07/24 18:59 06:59 18:59 Intake Total 175 590 Output Total 180 Balance -5 590 Weight 64.2 kg Intake: IV 175 Sodium Chloride 0.9% 1, 100 000 ml @ 50 mls/hr IV . Q20H [facility] Rx#:[id number] Sodium Chloride 0.9% 1, 75 000 ml @ 75 mls/hr IV . [id number] [facility] Rx#:[id number] Oral 590 Output: Urine 180 Other: Voiding Method Indwelling Catheter Indwelling Catheter # Voids 4 ABP, PAP, CO, CI - Last Documented Arterial Blood Pressure 156/62 - Exam GENERAL EXAM: Alert, pleasant 69-year-old female, on room air, comfortable in no apparent distress. HEAD: Normocephalic. EYES: Normal reaction of pupils, equal size. NOSE: Clear with pink turbinates. THROAT: No erythema or exudates. NECK: No masses, no JVD. CHEST: No chest wall deformity. LUNGS: Equal air entry with no crackles, wheeze, rhonchi or dullness. CVS: S1 and S2 normal with no audible murmur, regular rhythm. ABDOMEN: No hepatosplenomegaly, normal bowel sounds, no guarding or rigidity. SPINE: No scoliosis or deformity SKIN: No rashes CENTRAL NERVOUS SYSTEM: No focal deficits, tone is normal in all 4 extremities. EXTREMITIES: There is no peripheral edema. No clubbing, no cyanosis. Peripheral pulses are intact. - Labs CBC & Chem 7: 06/06/24 06:17 06/06/24 06:17 Labs: Abnormal Lab Results - Last 24 Hours (Table) 06/07/24 Range/Units 06:47 Creatine Kinase 2189 H* (30-135) U/L Microbiology - Last 24 Hours (Table) 06/03/24 20:49 Gram Stain - Final Sputum Sputum Culture - Final 06/06/24 15:13 CSF Gram Stain - Preliminary Cerebral Spinal Fluid 06/04/24 15:14 Blood Culture - Preliminary Blood Assessment and Plan Assessment: S/P fall, secondary to possible hyponatremia, and/or seizure Altered mental status, unable to rule out possible seizure S/P intubation and mechanical ventilator management, 06/03/2024, with successful extubation, on June 05, 2024 Hyponatremia, improved currently 132 Hypotension and shock, recovered Sinus bradycardia, possibly secondary to medication effect and propofol, improved Subclinical hypothyroidism, being treated Hypokalemia currently 3.3 Female genital prolapse Plan: The patient was seen and evaluated Currently stable and on room air To continue with normal saline at 75 mL/h Replace potassium per protocol Follow-up labs in a.m. This patient was seen independently by the pulmonary nurse practitioner addressing pulmonary issues I have personally seen and examined the patient, performed the documentation and the assessment and plan as written. Number of minutes spent on the visit: 24.
[2024-06-07] MEDS: amLODIPine 5 MG TAB PO SCH (12:58)
[2024-06-07 13:58] LABS: African American GFR (CKD) >90 (>60 ml/min/1.73 sqM); Anion Gap 3 mmol/L; Blood Urea Nitrogen 7 mg/dL (7-17); Calcium 8.5 mg/dL (8.4-10.2); Carbon Dioxide 24 mmol/L (22-30); Chloride 106 mmol/L (98-107); Glucose 97 mg/dL (74-99); Magnesium 1.8 mg/dL (1.6-2.3); Non-African American GFR(CKD) >90 (>60 ml/min/1.73 sqM); Potassium 3.2 mmol/L (3.5-5.1); Sodium 133 mmol/L (137-145)
--- NOTE | 2024-06-07 15:18 | P.PN ---
Subjective Progress Note Date: 06/06/24 HISTORY OF PRESENT ILLNESS: This is a 69-year-old female who was seen in my office for the first time on May 30, 2020 for she presented to the office requiring a preoperative medical clearance regarding a surgical intervention that scheduled for July 05, 2024 for a prolapsed uterus and therefore she is in the office for evaluation, patient apparently appeared to have had history of hypertension her blood pressure was quite elevated in the office 161/110 patient has not taken any medication at this point in time, she stated that she is feeling fine at this point, she denies any prior history of any other health issues except for constipation as well as history of hyperlipidemia, patient was started on losartan hydrochlorothiazide 100/12.5 mg orally once every day, and the patient did take about 4 days of that apparently the patient was at home and she cannot collapsed and the family heard a thump on the floor, patient apparently did have a seizure activity possibly was not witnessed at that time, patient was rushed to the emergency department at [facility], had a CT scan of the brain did not show evidence of acute abnormalities, she did have a CT angiography of the carotid as well as the brain did not show evidence of any intracranial aneurysm or any dissection of the carotid artery, patient was found to have a sodium level of 119 and chloride of 87, apparently the patient did suffer from significant hyponatremia that could be the trigger for her seizure activity po ssible and she was hypotensive, she was started on IV fluid resuscitation, she was admitted to the intensive care unit, patient was quite unresponsive, so she was intubated in the emergency department for airway protection, and consultation for consultant technology was obtained, patient was admitted to the ICU, she was seen today she is currently on the ventilator, she was seen by nephrology as well as by neurology, patient was started on seizure medication, she will have an EEG done, she was also started on vasopressin, and she was placed on Levophed because of hypotension, patient currently on AC mode with FiO2 of 40% PEEP of 5, and a tidal volume of 500, the plan is to extubate the patient tomorrow morning, and her next sodium level was 120 the last 1 was 122, we will continue to monitor the patient sodium very closely, and follow-up with the patient very closely patient may need to go for an MRI of the brain after she get disconnected from the ventilator. 06/05: Patient is laying down in bed in no apparent distress, she is currently on 2 L nasal cannula, she is just extubated in the ICU, she is more awake and more alert today, unfortunately she had a temperature yesterday her temperature maximum was 102, patient will have a blood cultures, sputum culture, chest x-ray did not show evidence of acute pneumonia, procalcitonin level is slightly elevated 0.13, patient sodium is better to 128, patient does not have any neck rigidity at this time, she does not have any focal neurological deficit, discussed with neurology possibility of lumbar puncture to rule out any aseptic meningitis versus bacterial meningitis, we will monitor the patient very closely, consult anesthesia/pain management service for lumbar puncture under fluoroscopy, patient appears to be a bit hypotensive, we will monitor the patient symptoms very closely, avoid hydrochlorothiazide may start on a small dose of amlodipine 5 mg once every day for blood pressure control if she she does not normalize over the next few hours. 06/06: Patient is laying down in bed in no apparent distress, patient tried to get out of the bed by herself, and she apparently fell on her knees, she did not have any obvious injuries, she has no headache at this time, she has no chest pain or shortness of breath, she appears to be better, she was started on Keppra per neurology since the patient did have seizure, patient is scheduled to go for MRI of the brain with and without sonny is not done yet, she underwent lumbar puncture that did not show evidence of acute abnormalities, patient will likely be kept in the hospital until her MRI is done hopefully in the next 1 or 2 days she can be discharged home patient also has been cleared to be transferred to a medical surgical floor by the ICU team. REVIEW OF SYSTEMS: Constitutional: Positive for documented fever, no chills, no night sweats. No weight change. Positive for weakness, fatigue or lethargy. No daytime sleepiness. EENT: No headache. No blurred vision or double vision, no loss of vision. No loss of Hearing, no ringing in the ears, no dizziness. No nasal drainage or congestion. No epistaxis. No sore throat. Lungs: No shortness of breath, no cough, no sputum production. No wheezing. Cardiovascular: No chest pain, no lower extremity edema. No palpitations. No paroxysmal nocturnal dyspnea. No orthopnea. No lightheadedness or dizziness. No syncopal episodes. Abdominal: Reports no abdominal pain. no nausea, vomiting. No diarrhea. no constipation. No bloody or tarry stools reports loss of appetite. Genitourinary: No dysuria, Ling catheter in place. Musculoskeletal: No myalgias. no muscle weakness, no gait dysfunction, no frequent falls. no back pain. No neck pain. Integumentary: No wounds, no lesions. No rash or pruritus. No unusual bruising. No change in hair or nails. Neurologic: No aphasia. No facial droop. No change in mentation. No head injury. No headache. No paralysis. No paresthesia. Psychiatric: No depression. No anxiety. No mood swings. Endocrine: No abnormal blood sugars. No weight change. PHYSICAL EXAMINATION: General: 69-year-old female laying down in bed in no apparent distress. HEENT: Head is atraumatic, normocephalic, pupils were equal round, reactive to light and accommodation, extraocular muscle movements are intact, mucous membranes of mouth are somewhat dry. Neck: Supple, no JVP, normal carotid upstroke bilaterally, no lymphadenopathy. Chest: Decreased breath sounds at the bases, few rhonchi, no extremity wheezes, no chest wall tenderness, no intercostal retractions. Heart: First heart sound is normal, second heart sound is normal there is no gallop or murmur. Abdomen: Soft, nontender, nondistended, positive bowel sounds. Extremities: There is no edema no calf tenderness DP +2 bilaterally. Neurologic examination: patient is awake alert and oriented x 3, cranial nerves II to XII appear gross intact, muscle power 5 out of 5 in upper and lower extremities bilaterally. ASSESSMENT AND PLAN: 1. Severe hypovolemic hyponatremia. Patient has been IV fluid in the form of normal saline at 75 cc an hour, her sodium level is very good at 132. 2. Acute vent dependent respiratory failure due to airway protection s/p extubation currently the patient is doing much better. Chest x-ray reviewed did not show evidence of any pneumonia. 3. Severe hypotension due to hypovolemia. Continue IV fluid resuscitation, blood pressure is back to normal. 4. Metabolic encephalopathy likely due to hyponatremia rule out seizure activity. Neurology is following, she is back to baseline, she will need to have a MRI of the brain with and without sonny. Continue Keppra 500 mg orally t wice every day. 5. Hypertension and hypertensive cardiovascular disease . We will consider starting the patient on amlodipine 5 mg once every day, avoid thiazide diuretics. 6. Mixed hyperlipidemia her LDL cholesterol is greater than 160 patient will need to go on atorvastatin as an outpatient. 7. Elevated TSH level with a normal free T4 and free T3 we will recheck as an outpatient. Discontinue levothyroxine 100 mcg IV push every day, start the patient on small dose of levothyroxine 50 mcg orally once every day and follow- up as an outpatient. 7. Vitamin D deficiency. Patient will need to be started on vitamin D supplement as an outpatient. 8. History of uterine prolapse she is scheduled to go for surgical intervention at the end of next month. 9. Chronic tobacco use and dependence. Patient will need to have a lung cancer screening as an outpatient with low-dose CT scan of the chest. 10. Colon cancer screening will need to be addressed as an outpatient. 11. DVT prophylaxis. Continue patient on heparin 5000 units subcutaneous every 12 hours., continue with bilateral knee-high MANNY hose. 12. GI prophylaxis. Continue patient on PPI. 13. Acute febrile illness. Likely atelectasis, lumbar puncture did not show evidence of acute abnormalities, chest x-ray did not show evidence of acute abnormalities, we will continue to monitor. Encourage early ambulation and incentive spirometer. 14. Patient is full code. 15. Transferred to medical surgical floor. Objective - Vital Signs Vital signs: Vital Signs Temp 97.8 F 06/06/24 13:45 Pulse 79 06/06/24 13:45 Resp 20 06/06/24 13:45 BP 140/65 06/06/24 13:45 Pulse Ox 92 L 06/06/24 13:45 FiO2 40 06/05/24 11:01 Intake & Output 06/05/24 06/06/24 06/06/24 18:59 06:59 18:59 Intake Total 1271.427 150 175 Output Total 1330 225 180 Balance -58.573 -75 -5 Weight 64.2 kg Intake: IV 770 150 175 Invasive Line 1 90 Invasive Line 2 30 Sodium Chloride 0.9% 1, 650 150 100 000 ml @ 50 mls/hr IV . Q20H [facility] Rx#:[id number] Sodium Chloride 0.9% 1, 75 000 ml @ 75 mls/hr IV . [id number] [facility] Rx#:[id number] Intake, IV Titration 191.427 Amount Norepinephrine 8 mg In 161.438 Sodium Chloride 0.9% 250 ml @ 0.03 MCG/KG/MIN 3. 843 mls/hr IV .Q24H [facility] Rx#:[id number] propofoL 1,000 mg In 29.989 Empty Bag 1 bag @ 15 MCG/ KG/MIN 5.958 mls/hr IV . [id number] [facility] Rx#:[id number] Oral 100 Tube Feeding 180 Other 30 Output: Gastric Drainage 200 Urine 1130 225 180 Other: Voiding Method Indwelling Catheter Indwelling Catheter Indwelling Catheter # Bowel Movements 0 ABP, PAP, CO, CI - Last Documented Arterial Blood Pressure 156/62 - Labs CBC & Chem 7: 06/06/24 06:17 06/07/24 12:48 Labs: Abnormal Lab Results - Last 24 Hours (Table) 06/06/24 06/06/24 Range/Units 06:17 06:17 WBC 10.8 H (3.8-10.6) k/uL RBC 3.38 L (3.80-5.40) m/uL Hgb 10.2 L (11.4-16.0) gm/dL Hct 31.8 L (34.0-46.0) % Neutrophils # 8.8 H (1.3-7.7) k/uL Sodium 132 L (137-145) mmol/L Potassium 3.3 L (3.5-5.1) mmol/L BUN 4 L (7-17) mg/dL Creatinine 0.43 L (0.52-1.04) mg/dL Calcium 8.3 L (8.4-10.2) mg/dL Creatine Kinase 1532 H* (30-135) U/L Microbiology - Last 24 Hours (Table) 06/04/24 15:14 Blood Culture - Preliminary Blood 06/03/24 20:49 Gram Stain - Preliminary Sputum Sputum Culture - Preliminary
--- NOTE | 2024-06-07 15:21 | P.PN ---
Subjective Progress Note Date: 06/07/24 HISTORY OF PRESENT ILLNESS: This is a 69-year-old female who was seen in my office for the first time on May 30, 2020 for she presented to the office requiring a preoperative medical clearance regarding a surgical intervention that scheduled for July 05, 2024 for a prolapsed uterus and therefore she is in the office for evaluation, patient apparently appeared to have had history of hypertension her blood pressure was quite elevated in the office 161/110 patient has not taken any medication at this point in time, she stated that she is feeling fine at this point, she denies any prior history of any other health issues except for constipation as well as history of hyperlipidemia, patient was started on losartan hydrochlorothiazide 100/12.5 mg orally once every day, and the patient did take about 4 days of that apparently the patient was at home and she cannot collapsed and the family heard a thump on the floor, patient apparently did have a seizure activity possibly was not witnessed at that time, patient was rushed to the emergency department at [facility], had a CT scan of the brain did not show evidence of acute abnormalities, she did have a CT angiography of the carotid as well as the brain did not show evidence of any intracranial aneurysm or any dissection of the carotid artery, patient was found to have a sodium level of 119 and chloride of 87, apparently the patient did suffer from significant hyponatremia that could be the trigger for her seizure activity po ssible and she was hypotensive, she was started on IV fluid resuscitation, she was admitted to the intensive care unit, patient was quite unresponsive, so she was intubated in the emergency department for airway protection, and consultation for can sealer was obtained, patient was admitted to the ICU, she was seen today she is currently on the ventilator, she was seen by nephrology as well as by neurology, patient was started on seizure medication, she will have an EEG done, she was also started on vasopressin, and she was placed on Levophed because of hypotension, patient currently on AC mode with FiO2 of 40% PEEP of 5, and a tidal volume of 500, the plan is to extubate the patient tomorrow morning, and her next sodium level was 120 the last 1 was 122, we will continue to monitor the patient sodium very closely, and follow-up with the patient very closely patient may need to go for an MRI of the brain after she get disconnected from the ventilator. 06/05: Patient is laying down in bed in no apparent distress, she is currently on 2 L nasal cannula, she is just extubated in the ICU, she is more awake and more alert today, unfortunately she had a temperature yesterday her temperature maximum was 102, patient will have a blood cultures, sputum culture, chest x-ray did not show evidence of acute pneumonia, procalcitonin level is slightly elevated 0.13, patient sodium is better to 128, patient does not have any neck rigidity at this time, she does not have any focal neurological deficit, discussed with neurology possibility of lumbar puncture to rule out any aseptic meningitis versus bacterial meningitis, we will monitor the patient very closely, consult anesthesia/pain management service for lumbar puncture under fluoroscopy, patient appears to be a bit hypotensive, we will monitor the patient symptoms very closely, avoid hydrochlorothiazide may start on a small dose of amlodipine 5 mg once every day for blood pressure control if she she does not normalize over the next few hours. 06/06: Patient is laying down in bed in no apparent distress, patient tried to get out of the bed by herself, and she apparently fell on her knees, she did not have any obvious injuries, she has no headache at this time, she has no chest pain or shortness of breath, she appears to be better, she was started on Keppra per neurology since the patient did have seizure, patient is scheduled to go for MRI of the brain with and without sonny is not done yet, she underwent lumbar puncture that did not show evidence of acute abnormalities, patient will likely be kept in the hospital until her MRI is done hopefully in the next 1 or 2 days she can be discharged home patient also has been cleared to be transferred to a medical surgical floor by the ICU team. 06/07: Patient is laying down in bed in no apparent distress, she appears to be a bit short winded today but she denies that, patient is ambulating with a walker with one-person assist, she stated that she is doing better today than yesterday, her CPK continues to be elevated at this time, likely related to mild rhabdomyolysis due to recent seizure and possible fall, patient will be kept in the hospital for another 24 hours, she is scheduled to go for MRI of the brain with and without sonny this afternoon at 315, await the final result of that since the patient CT scan showed evidence of prior CVA, monitor the patient very cl osely, patient was started on amlodipine 5 mg orally once every for hypertension, we will continue to monitor the patient very closely at this point in time. Patient would want to be discharged home hopefully in the next 24 hours. REVIEW OF SYSTEMS: Constitutional: Positive for documented fever, no chills, no night sweats. No weight change. Positive for weakness, fatigue or lethargy. No daytime sleepiness. EENT: No headache. No blurred vision or double vision, no loss of vision. No loss of Hearing, no ringing in the ears, no dizziness. No nasal drainage or congestion. No epistaxis. No sore throat. Lungs: No shortness of breath, no cough, no sputum production. No wheezing. Cardiovascular: No chest pain, no lower extremity edema. No palpitations. No paroxysmal nocturnal dyspnea. No orthopnea. No lightheadedness or dizziness. No syncopal episodes. Abdominal: Reports no abdominal pain. no nausea, vomiting. No diarrhea. no constipation. No bloody or tarry stools reports loss of appetite. Genitourinary: No dysuria, Ling catheter in place. Musculoskeletal: No myalgias. no muscle weakness, no gait dysfunction, no frequent falls. no back pain. No neck pain. Integumentary: No wounds, no lesions. No rash or pruritus. No unusual bruising. No change in hair or nails. Neurologic: No aphasia. No facial droop. No change in mentation. No head injury. No headache. No paralysis. No paresthesia. Psychiatric: No depression. No anxiety. No mood swings. Endocrine: No abnormal blood sugars. No weight change. PHYSICAL EXAMINATION: General: 69-year-old female laying down in bed in no apparent distress. HEENT: Head is atraumatic, normocephalic, pupils were equal round, reactive to light and accommodation, extraocular muscle movements are intact, mucous m embranes of mouth are somewhat dry. Neck: Supple, no JVP, normal carotid upstroke bilaterally, no lymphadenopathy. Chest: Decreased breath sounds at the bases, few rhonchi, no extremity wheezes, no chest wall tenderness, no intercostal retractions. Heart: First heart sound is normal, second heart sound is normal there is no gallop or murmur. Abdomen: Soft, nontender, nondistended, positive bowel sounds. Extremities: There is no edema no calf tenderness DP +2 bilaterally. Neurologic examination: patient is awake alert and oriented x 3, cranial nerves II to XII appear gross intact, muscle power 5 out of 5 in upper and lower extremities bilaterally. ASSESSMENT AND PLAN: 1. Severe hypovolemic hyponatremia. Patient has been IV fluid in the form of normal saline at 75 cc an hour, her sodium level is very good at 133. 2. Acute vent dependent respiratory failure due to airway protection s/p extubation currently the patient is doing much better. Chest x-ray reviewed did not show evidence of any pneumonia. 3. Severe hypotension due to hypovolemia. Continue IV fluid resuscitation, blood pressure is back to normal. 4. Metabolic encephalopathy likely due to hyponatremia rule out seizure activity. Neurology is following, she is back to baseline, she will need to have a MRI of the brain with and without sonny. Continue Keppra 500 mg orally twice every day. 5. Hypertension and hypertensive cardiovascular disease . Continue amlodipine 5 mg once every day, avoid thiazide diuretics. 6. Mixed hyperlipidemia her LDL cholesterol is greater than 160 patient will need to go on atorvastatin as an outpatient. 7. Elevated TSH level with a normal free T4 and free T3 we will recheck as an outpatient. Discontinue levothyroxine 100 mcg IV push every day, start the patient on small dose of levothyroxine 50 mcg orally once every day and follow- up as an outpatient. 7. Vitamin D deficiency. Patient will need to be started on vitamin D supplement as an outpatient. 8. History of uterine prolapse she is scheduled to go for surgical intervention at the end of next month. 9. Chronic tobacco use and dependence. Patient will need to have a lung cancer screening as an outpatient with low-dose CT scan of the chest. 10. Colon cancer screening will need to be addressed as an outpatient. 11. DVT prophylaxis. Continue patient on heparin 5000 units subcutaneous every 12 hours., continue with bilateral knee-high MANNY hose. 12. GI prophylaxis. Continue patient on PPI. 13. Acute febrile illness. Likely atelectasis, lumbar puncture did not show evidence of acute abnormalities, chest x-ray did not show evidence of acute abnormalities, we will continue to monitor. Encourage early ambulation and incentive spirometer. 14. Subclinical hypothyroidism. Decrease levothyroxine to 50 mcg orally once every day, patient was started on 125 mcg orally once a day which is a huge dose for her, her TSH was elevated however her free T4 and free T3 are normal. We will reevaluate as an outpatient. 15. Elevated CPK likely mild rhabdomyolysis. Monitor the patient CPK over the next 24 hours, 16. Possible seizure continue patient on Keppra 500 mg orally twice every day. 17. Medical debility. Physical therapy evaluation. 18. Patient is full code. 19. Likely home in the next 24 hours if MRI is okay. Objective - Vital Signs Vital signs: Vital Signs Temp 98.2 F 06/07/24 13:06 Pulse 78 06/07/24 13:06 Resp 19 06/07/24 13:06 BP 151/78 06/07/24 13:06 Pulse Ox 91 L 06/07/24 13:06 FiO2 21 06/07/24 07:37 Intake & Output 06/06/24 06/07/24 06/07/24 18:59 06:59 18:59 Intake Total 175 590 Output Total 180 Balance -5 590 Weight 64.2 kg Intake: IV 175 Sodium Chloride 0.9% 1, 100 000 ml @ 50 mls/hr IV . Q20H [facility] Rx#:[id number] Sodium Chloride 0.9% 1, 75 000 ml @ 75 mls/hr IV . [id number] [facility] Rx#:[id number] Oral 590 Output: Urine 180 Other: Voiding Method Indwelling Catheter Indwelling Catheter # Voids 4 ABP, PAP, CO, CI - Last Documented Arterial Blood Pressure 156/62 - Labs CBC & Chem 7: 06/06/24 06:17 06/07/24 12:48 Labs: Abnormal Lab Results - Last 24 Hours (Table) 06/07/24 Range/Units 06:47 Creatine Kinase 2189 H* (30-135) U/L Microbiology - Last 24 Hours (Table) 06/03/24 20:49 Gram Stain - Final Sputum Sputum Culture - Final 06/06/24 15:13 CSF Gram Stain - Preliminary Cerebral Spinal Fluid 06/04/24 15:14 Blood Culture - Preliminary Blood
--- NOTE | 2024-06-07 15:38 | P.PN ---
Subjective Progress Note Date: 06/07/24 I am following up with the patient and she states she is doing drastically better. She denies any headache, any focal weakness, any visual disturbance. Denies any numbness and tingling. She had a lumbar puncture yesterday and she tolerated it well. CSF study is unremarkable Objective - Vital Signs Vital signs: Vital Signs Temp 98.2 F 06/07/24 13:06 Pulse 78 06/07/24 13:06 Resp 19 06/07/24 13:06 BP 151/78 06/07/24 13:06 Pulse Ox 91 L 06/07/24 13:06 FiO2 21 06/07/24 07:37 Intake & Output 06/06/24 06/07/24 06/07/24 18:59 06:59 18:59 Intake Total 175 590 Output Total 180 Balance -5 590 Weight 64.2 kg Intake: IV 175 Sodium Chloride 0.9% 1, 100 000 ml @ 50 mls/hr IV . Q20H [facility] Rx#:[id number] Sodium Chloride 0.9% 1, 75 000 ml @ 75 mls/hr IV . [id number] [facility] Rx#:[id number] Oral 590 Output: Urine 180 Other: Voiding Method Indwelling Catheter Indwelling Catheter # Voids 4 ABP, PAP, CO, CI - Last Documented Arterial Blood Pressure 156/62 - Exam General: Lying in bed and is not in acute distress. HENT: Supple neck. Neuro: Patient is awake alert oriented to self place and time. Is following simple commands. No aphasia no neglect. Pupils are round equal reactive to light. Visual caballero are full. Extraocular movements intact no nystagmus No facial weakness. No dysarthria Motor: Lifting all extremities above gravity equally. Some of the other work-up in our facility consisted of: Sodium was 119-->128 white Blood cell is 12.4 on presentation-->14.4K Ammonia is 15 CK level is 1444 TSH is 11 Free T4 is 1.73 Reviewed the rest of the lab work CT of the head is reported as no acute intracranial process. Remote left frontal lobe injury. Personally reviewed the CT and I agree that the patient does have an old left frontal lobe injury next CT cervical spine is reported as no evidence cervical spine fracture. Mild multilevel degenerative disc disease. Neck CT angiography of the head and neck is reported as extremely limited exam due to motion and some areas given limitations no evidence of intracranial high-grade stenosis or intracranial aneurysm. No evidence of dissection cervical internal carotid artery or vertebral artery or any evidence of significant stenosis at the carotid bifurcation 2D echo was reported as moderately increased left ventricle wall thickness. Ejection fraction of 55-60. Routine EEG: Is abnormal. The background slowing is suggestive of mild encephalopathy. There is no focal slowing, epileptiform discharges or seizure on the EEG. CSF: Clear, colorless, red blood cells 0, nucleated cells 0, glucose is 55, total protein is 35. Enterovirus PCR is nondetected. HSV 1 and 2 PCR, are nondetected - Labs CBC & Chem 7: 06/06/24 06:17 06/07/24 12:48 Labs: Abnormal Lab Results - Last 24 Hours (Table) 06/07/24 06/07/24 Range/Units 06:47 12:48 Sodium 133 L (137-145) mmol/L Potassium 3.2 L (3.5-5.1) mmol/L Creatinine 0.45 L (0.52-1.04) mg/dL Creatine Kinase 2189 H* (30-135) U/L Microbiology - Last 24 Hours (Table) 06/03/24 20:49 Gram Stain - Final Sputum Sputum Culture - Final 06/06/24 15:13 CSF Gram Stain - Preliminary Cerebral Spinal Fluid 06/04/24 15:14 Blood Culture - Preliminary Blood Assessment and Plan Assessment: This is a 69-year-old woman with underlying history of hypertension who refused to be on medication until recently she was placed on medication for the past several days and that yesterday she had an episode where she was in the bathroom and the heard a scream and then she fell on the ground and was not verbally responsive. ED she had fixed gaze deviation which has resolved after Ativan. 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 She was also found to have sodium of 119. Patient episode of screaming with confusion and gaze deviation is concerning for probable new onset seizure: Seizure seems to be provoked due to hyponatremia--mentation is improved and no focal deficit EEG is mild encephalopathy but no seizure or discharges. Pyrexia as high as 102.5F on 06/04/2024 and had fevers 2 days ago and no further fever. CSF is normal. She presented afebrile on presentation. Possible aspiration pneumonia---mentation is drastically better. 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 This admission she was on Keppra 500 mg twice daily and since the EEG and CSF studies unremarkable and this seems more provoked seizure I went down from 500 mg twice daily to 500 mg daily. Recommend by tomorrow if she continues to be doing well and MRI is negative for any brain mass then can be discontinued completely off of it. Will defer off antiseizure medication to her outpatient neurologist. She is on Seizure precaution and pads Recommend aspirin 81 mg, Lipitor 40 mg nightly for secondary stroke prophylaxis Nephrology is consulted for hyponatremia Will defer the rest of the medical management to primary and other specialist Plan discussed with the patient and her nurse. Dr. Parry will resume neurology service tomorrow. Time with Patient: Less than 30
[2024-06-07] MEDS: POTASSIUM CHLORIDE ER 20 MEQ TAB.ER PO STA (16:22)
--- NOTE | 2024-06-07 16:50 | MR ---
EXAMINATION TYPE: MR brain wo/w con DATE OF EXAM: 06/07/2024 4:10 PM CLINICAL INDICATION: Female, 69 years old with history of seizure; COMPARISON: 06/03/2024 TECHNIQUE: Multi planar, multi sequence imaging was performed through the brain including: T1, T2, In version recovery, susceptibility weighted imaging and gradient echo imaging and Diffusion weighted im aging. The patient was then given intravenous contrast and multi planar, T1 fat-saturation images wer e obtained. IV Contrast: 7 cc Gadavist. FINDINGS: Remote injury to the left frontal lobe and right roman radiata. Mild cerebral atrophy with proportional dilation of ventricular system. Diffusion-weighted imaging s hows no evidence of restricted diffusion to suggest acute/subacute infarct. Intracranial arterial rene w voids are maintained. Midline structures show no abnormality. Scattered foci of high T2 signal inte nsity are seen within the periventricular white matter. The susceptibility weighted images do not rev eal any evidence for micro-hemorrhage. After administration of gadolinium, no abnormal enhancement is seen. The bone marrow signal is within normal limits. Paranasal sinuses and mastoid air cells: No significant paranasal sinus disease. Visualized orbits: Orbital contents are intact. IMPRESSION: 1. No evidence of intracranial mass, acute/subacute infarct, or abnormal enhancement. 2. No injury left frontal lobe and right roman radiata. 3. Nonspecific white matter changes, likely related to small vessel ischemic disease.
[2024-06-08] MEDS: LEVOTHYROXINE 50 MCG TAB PO SCH (06:19)
[2024-06-08] MEDS: levETIRAcetam 500 MG TAB PO SCH (09:20)
[2024-06-08 09:52] LABS: Basophils # (A) 0.04 X 10*3/uL (0.00-0.10); Basophils % (A) 0.4 %; Eosinophils # (A) 0.52 X 10*3/uL (0.04-0.35); Eosinophils % (A) 5.8 %; HCT 29.8 % (37.2-46.3); HGB 10.1 g/dL (12.0-15.0); Lymphocytes # (A) 1.88 X 10*3/uL (0.90-5.00); Lymphocytes % (A) 20.8 %; MCH 30.1 pg (27.0-32.0); MCHC 33.9 g/dL (32.0-37.0); MCV 88.7 FL (80.0-97.0); Mean Platelet Volume 11.3 FL (9.5-12.2); Monocytes # (A) 0.88 X 10*3/uL (0.20-1.00); Monocytes % (A) 9.8 %; NRBC Per 100 WBC 0 X 10*3/uL (0.00-0.01); Neutrophils # (A) 5.62 X 10*3/uL (1.80-7.70); Neutrophils % (A) 62.3 %; Platelet Count 256 X 10*3/uL (140-440); RBC 3.36 X 10*6/uL (4.10-5.20); RDW 13.1 % (11.5-14.5); WBC 9.02 X 10*3/uL (4.50-10.00)
[2024-06-08 10:07] LABS: ALT 31 U/L (8-44); AST 47 U/L (13-35); Albumin 3.3 g/dL (3.8-4.9); Albumin/Globulin Ratio 1.57 Ratio (1.60-3.17); Alkaline Phosphatase 107 U/L (41-126); Blood Urea Nitrogen 6.5 mg/dL (9.0-27.0); Calcium 8.3 mg/dL (8.7-10.3); Chloride 102 mmol/L (96-109); Globulin 2.1 g/dL (1.6-3.3); Glucose 99 mg/dL (70-110); Potassium 3.1 mmol/L (3.5-5.5); Sodium 135 mmol/L (135-145); Total Bilirubin 0.6 mg/dL (0.3-1.2); Total Protein 5.4 g/dL (6.2-8.2)
[2024-06-08 10:25] LABS: Magnesium 1.6 mg/dL (1.5-2.4)
[2024-06-08 10:26] LABS: Creatine Kinase 1553 U/L (26-186)
--- NOTE | 2024-06-08 10:48 | P.PN ---
Subjective Progress Note Date: 06/08/24 Patient is a 69-year-old white female. Past medical history is largely unknown, as the patient is currently intubated mechanical ventilator and unable to participate in interview. Apparently, patient was at home in the bathroom, family heard a crashing sound. Patient was found on the ground, altered. She was brought in via EMS, noted to be agitated and confused by ER provider. She had shallow respirations. Patient was ultimately intubated for airway protection. Initial CT of the brain and C-spine did not show any acute intracranial process. Remote left frontal lobe injury. No evidence of cervical spine fracture. Brain CTA does not show any evidence of intracranial high-grade stenosis or intracranial aneurysm. No evidence of dissection of the cervical internal carotid arteries or vertebral arteries or significant stenosis at the carotid bifurcations. Patient was felt to have possible seizure-like activity. Nystagmus was noted. She did receive a dose of Ativan in the emergency dep artment. I am evaluating this patient in trauma bay 2. She is currently intubated mechanical ventilator. Postintubation chest x-ray shows the endotracheal tube approximately 3.6 cm above the jignesh. Nasogastric tube with the distal tip projecting underneath the diaphragm. No focal infiltrates or evidence of pneumonia. No obvious acute cardiopulmonary disease process. Postintubation chest x-ray shows a PaO2 of 379, pCO2 of 51, pH of 7.33. Current ventilator settings are assist-control, respiratory rate 16, tidal volume 350, FiO2 was dropped to 50%, and PEEP of 5. She is breathing slightly above set the rate around 18 breaths/min. No significant airway secretions. Peak pressure 23. She is sedated on a combination of propofol which is infusing at 35 mcg/kg/min as well as fentanyl at 2 mcg/kg/h. No obvious clinical signs of seizure activity. She awakes to tactile stimuli, but then falls quickly back to sleep. Does not follow any commands. Moves all 4 extremities. She is req uiring high-dose norepinephrine which is currently running at 0.19 mcg/kg/min. ER physician is going to insert a central line catheter. She did receive a 1 L normal saline bolus in the emergency department. She was noted to be hyponatremic, suspect hypovolemic. Sodium level on arrival 119. Appropriate osmolality and urine studies pending. Normal saline infusing at 50 mL/h. Most recent BMP: Sodium 122, potassium 3.2, chloride 99, serum bicarb 21, BUN 8, creatinine 0.35, glucose 119. Creatinine kinase 1044. Ammonia 15. Troponin less than 0.012. TSH 11, free T4 1.73. Urinalysis not very remarkable for infection. Urine drug screen negative. Serum alcohol level less than 10. CBC: WBC count 12.4, hemoglobin 13.6, hematocrit 40.2, platelets 307. X-ray of the pelvis showed mild step-off of the right inferior pubic ramus concerning for possible fracture. Patient's condition is currently critical. Patient will be admitted to the intensive care unit as soon as bed available. Progress note dated June 05, 2024. 69-year-old female who was brought into the emergency department, with mental status changes, a fall, and possible seizure, as well as hyponatremia. The patient was intubated for airway protection. She remains on the ventilator. She is on volume assist-control, rate 16, tidal volume 350, FiO2 40%, PEEP of 5. Blood gases show pO2 of 111, pCO2 of 43, pH of 7.38. The patient is getting propofol at 30 mcg/kg/min, saline at 50 cc an hour, and vital AF at 30 cc an hour, which is goal. Today, the patient should have a daily interruption of sedation, and a spontaneous breathing trial. Labs include a white count 14.4, hemoglobin 10.7, hematocrit 32.2, and a platelet count is normal. Sodium 128, potassium 3.2, chlorides 102, CO2 26, BUN 4, creatinine 0.40. Glucose is 122. Calcium is 8.3. Chest x-ray shows a normal chest x-ray. No acute process noted. Progress note dated June 06, 2024. 69-year-old female brought to the emergency department, with mental status changes, a fall, possible seizure, and also hyponatremia. The patient was successfully extubated yesterday. She appears to be hypothyroid, and she was given Synthroid 100 mg IV push, and will start 125 mg orally, tomorrow. She continues on oxygen at 2 L. She is getting saline at 75 cc an hour. The neurologist, believes the patient would benefit from a lumbar puncture, as we do not have any clear-cut indication of what is going on with this patient. She appears relatively alert and lucid today, and stated that she wanted to go home. White count is 10.8, hemoglobin 10.2, hematocrit 31.8, platelet count was normal. Sodium 132, potassium 3.3, chlorides 102, CO2 24, BUN 4, creatinine 0.43. CK was 1532. Calcium 8.3. Blood and sputum sampling is thus far negative. No chest x-ray today. The patient is seen today June 07, 2024 in follow-up on the regular medical floor. She is currently resting comfortably in bed. Awake and alert in no acute distress. She is maintaining good O2 saturations in the 90s on room air. She has normal saline at 75 mL/h. Her sodium is 132. Creatinine kinase 2189. Cerebrospinal fluid was clear and colorless with glucose of 55 and a total protein of 35. Cultures revealing no growth. She is continued on heparin for DVT prophylaxis. Remains on bronchodilators. She is anxious to go home. The patient is seen today June 08, 2024 in follow-up on the regular medical floor. She is awake and alert in no acute distress. Resting in bed. Maintaining O2 saturations in the 90s on room air. She has normal saline at 75 mL/h. MRI of the brain revealed no evidence of intracranial mass, acute/subacute infarct or abnormal enhancement. Sputum, blood and cerebrospinal fluid cultures revealed no growth. White count 9.0. Hemoglobin 10.1. Platelets 256. Sodium 135. Potassium 3.1. Bicarb 22. BUN 7. Creatinine 0.5. Creatinine kinase 1553. Objective - Vital Signs Vital signs: Vital Signs Temp 98.2 F 06/08/24 08:00 Pulse 73 06/08/24 08:05 Resp 18 06/08/24 08:00 BP 160/98 06/08/24 08:00 Pulse Ox 95 06/08/24 08:00 FiO2 21 06/07/24 07:37 Intake & Output 06/07/24 06/08/24 06/08/24 18:59 06:59 18:59 Intake Total 790 Balance 790 Intake: Oral 790 Other: # Voids 3 1 ABP, PAP, CO, CI - Last Documented Arterial Blood Pressure 156/62 - Exam GENERAL EXAM: Alert, awake 69-year-old female, on room air, comfortable in no apparent distress. HEAD: Normocephalic. EYES: Normal reaction of pupils, equal size. NOSE: Clear with pink turbinates. THROAT: No erythema or exudates. NECK: No masses, no JVD. CHEST: No chest wall deformity. LUNGS: Equal air entry with no crackles, wheeze, rhonchi or dullness. CVS: S1 and S2 normal with no audible murmur, regular rhythm. ABDOMEN: No hepatosplenomegaly, normal bowel sounds, no guarding or rigidity. SPINE: No scoliosis or deformity SKIN: No rashes CENTRAL NERVOUS SYSTEM: No focal deficits, tone is normal in all 4 extremities. EXTREMITIES: There is no peripheral edema. No clubbing, no cyanosis. Peripheral pulses are intact. - Labs CBC & Chem 7: 06/08/24 05:33 06/08/24 05:33 Labs: Abnormal Lab Results - Last 24 Hours (Table) 06/07/24 06/08/24 06/08/24 Range/Units 12:48 05:33 05:33 RBC 3.36 L (4.10-5.20) X 10*6/uL Hgb 10.1 L (12.0-15.0) g/dL Hct 29.8 L (37.2-46.3) % Immature Gran # 0.08 H (0.00-0.04) X 10*3/uL Eosinophils # 0.52 H (0.04-0.35) X 10*3/uL Sodium 133 L (137-145) mmol/L Potassium 3.2 L 3.1 L (3.5-5.1) mmol/L BUN 6.5 L (9.0-27.0) mg/dL Creatinine 0.45 L 0.5 L (0.52-1.04) mg/dL Calcium 8.3 L (8.7-10.3) mg/dL AST 47 H (13-35) U/L Creatine Kinase 1553 A* (26-186) U/L Total Protein 5.4 L (6.2-8.2) g/dL Albumin 3.3 L (3.8-4.9) g/dL Albumin/Globulin Ratio 1.57 L (1.60-3.17) Ratio Microbiology - Last 24 Hours (Table) 06/06/24 15:13 CSF Gram Stain - Preliminary Cerebral Spinal Fluid CSF Culture - Preliminary 06/04/24 15:14 Blood Culture - Preliminary Blood 06/03/24 20:49 Gram Stain - Final Sputum Sputum Culture - Final Assessment and Plan Assessment: S/P fall, secondary to possible hyponatremia, and/or seizure Altered mental status, unable to rule out possible seizure S/P intubation and mechanical ventilator management, 06/03/2024, with successful extubation, on June 05, 2024. Stable and on room air Hyponatremia, improved currently 135 Hypotension and shock, recovered Sinus bradycardia, possibly secondary to medication effect and propofol, improved Subclinical hypothyroidism, being treated Hypokalemia currently 3.1 Female genital prolapse Plan: The patient was seen and evaluated Labs and medications reviewed Currently stable and on room air Cleared for discharge from the pulmonary standpoint This patient was seen independently by the pulmonary nurse practitioner addressing pulmonary issues I have personally seen and examined the patient, performed the documentation and the assessment and plan as written. Number of minutes spent on the visit: 23.
[2024-06-08] MEDS: POTASSIUM CHLORIDE ER 20 MEQ TAB.ER PO SCH ×2 (11:37→15:33)
--- NOTE | 2024-06-08 13:34 | P.PN ---
Subjective patient is seen for follow-up for hyponatremia. Maintained on normal saline. Serum sodium is 135 today. Tolerating oral intake. Objective - Vital Signs Vital signs: Vital Signs Temp 98.2 F 06/08/24 08:00 Pulse 73 06/08/24 08:05 Resp 18 06/08/24 08:00 BP 160/98 06/08/24 08:00 Pulse Ox 95 06/08/24 08:00 FiO2 21 06/07/24 07:37 Intake & Output 06/07/24 06/08/24 06/08/24 18:59 06:59 18:59 Intake Total 790 Balance 790 Intake: Oral 790 Other: # Voids 3 1 ABP, PAP, CO, CI - Last Documented Arterial Blood Pressure 156/62 - Exam patient is awake, comfortable, no acute distress. Examination of the heart S1 and S2 Examination of the lungs bilateral breath sounds are heard Abdomen is soft nontender Examination of lower extremity shows - Labs CBC & Chem 7: 06/08/24 05:33 06/08/24 05:33 Labs: Abnormal Lab Results - Last 24 Hours (Table) 06/07/24 06/08/24 06/08/24 Range/Units 12:48 05:33 05:33 RBC 3.36 L (4.10-5.20) X 10*6/uL Hgb 10.1 L (12.0-15.0) g/dL Hct 29.8 L (37.2-46.3) % Immature Gran # 0.08 H (0.00-0.04) X 10*3/uL Eosinophils # 0.52 H (0.04-0.35) X 10*3/uL Sodium 133 L (137-145) mmol/L Potassium 3.2 L 3.1 L (3.5-5.1) mmol/L BUN 6.5 L (9.0-27.0) mg/dL Creatinine 0.45 L 0.5 L (0.52-1.04) mg/dL Calcium 8.3 L (8.7-10.3) mg/dL AST 47 H (13-35) U/L Creatine Kinase 1553 A* (26-186) U/L Total Protein 5.4 L (6.2-8.2) g/dL Albumin 3.3 L (3.8-4.9) g/dL Albumin/Globulin Ratio 1.57 L (1.60-3.17) Ratio Microbiology - Last 24 Hours (Table) 06/06/24 15:13 CSF Gram Stain - Preliminary Cerebral Spinal Fluid CSF Culture - Preliminary 06/04/24 15:14 Blood Culture - Preliminary Blood Assessment and Plan Assessment: . Hypovolemic hyponatremia improved with normal saline. Also component of thiazide diuretic use. Sodium level 135 today. Urine sodium 71 and urine osmolality 334. TSH elevated at 11. Free T4 normal. Cortisol 14.1. 2. Status post fall. 3. Altered mental status possibly from hyponatremia and questionable seizure. Improved. 4. Hypotension status post Levophed. Now blood pressure on the higher side. 5. Hypokalemia from diuretic use and poor intake. Replaced. 6. Mild rhabdomyolysis. CK level 1532 t trending up and is 2189 this morning. Not on statin. Most likely related to hypothyroidism. Plan: continue with normal saline, decrease to 50 mL an hour Encourage increased oral intake.
[2024-06-08 13:41] VITALS: BP 155/76; PULSE 69; RESP 19; TEMP 98.4
[2024-06-09] MEDS ORDERED: PANTOPRAZOLE 40 MG TABLET PO SCH (07:30)
== END 2024-06-08 17:20 | disposition home or self-care (01) | DRG 640 ==
LOC: EC 16:08 → 2SICU 19:31 → 5NMEDONC 06-06 20:28
PROVIDERS: ADMIT Internal Medicine; ATTEND Internal Medicine
PROC: 5A1945Z Respiratory Ventilation, 24-96 Consecutive Hours (ICD-10-PCS; principal; 2024-06-03)
PROC: 0BH17EZ Insertion of Endotracheal Airway into Trachea, Via Natural or Artificial Opening (ICD-10-PCS; 2024-06-03)
PROC: 02HV33Z Insertion of Infusion Device into Superior Vena Cava, Percutaneous Approach (ICD-10-PCS; 2024-06-04)
PROC: 03HY32Z Insertion of Monitoring Device into Upper Artery, Percutaneous Approach (ICD-10-PCS; 2024-06-04)
PROC: 4A133B1 Monitoring of Arterial Pressure, Peripheral, Percutaneous Approach (ICD-10-PCS; 2024-06-04)
PROC: 4A133J1 Monitoring of Arterial Pulse, Peripheral, Percutaneous Approach (ICD-10-PCS; 2024-06-04)
PROC: 009U3ZX Drainage of Spinal Canal, Percutaneous Approach, Diagnostic (ICD-10-PCS; 2024-06-06)
DX: E87.1 Hypo-osmolality and hyponatremia (principal); G93.41 Metabolic encephalopathy; J96.00 Acute respiratory failure, unspecified whether with hypoxia or hypercapnia; G96.00 Cerebrospinal fluid leak, unspecified; R57.9 Shock, unspecified; M62.82 Rhabdomyolysis; E87.6 Hypokalemia; T50.2X5A Adverse effect of carbonic-anhydrase inhibitors, benzothiadiazides and other diuretics, initial encounter; E78.2 Mixed hyperlipidemia; N81.4 Uterovaginal prolapse, unspecified; I10 Essential (primary) hypertension; I25.2 Old myocardial infarction; I95.89 Other hypotension; Y92.009 Unspecified place in unspecified non-institutional (private) residence as the place of occurrence of the external cause; F17.210 Nicotine dependence, cigarettes, uncomplicated; E55.9 Vitamin D deficiency, unspecified; E03.8 Other specified hypothyroidism; H55.00 Unspecified nystagmus; Z79.890 Hormone replacement therapy; E86.1 Hypovolemia; W19.XXXA Unspecified fall, initial encounter; Z82.49 Family history of ischemic heart disease and other diseases of the circulatory system; Z86.73 Personal history of transient ischemic attack (TIA), and cerebral infarction without residual deficits
CPT/HCPCS: 31500; 36415; 36556; 36600; 62270; 70450; 70496; 70498; 70553; 71045; 72125; 72170; 80048; 80053; 80306; 80320; 81001; 82140; 82533; 82550; 82552; 82805; 82945; 83735; 83873; 83874; 83930; 83935; 84100; 84132; 84145; 84157; 84295; 84300; 84439; 84443; 84481; 84484; 85025; 85610; 85730; 87040; 87070; 87205; 87496; 87498; 87529; 87798; 89050; 93005; 93306; 94002; 94003; 94640; 94760; 95822; 96365; 96366; 96368; 96375; 99291

== ENCOUNTER 2024-08-16 09:45 | Emergency (ER) | payer MEDICARE, OTHER ==
[2024-08-16 09:54] VITALS: RESP 16
--- NOTE | 2024-08-16 10:39 | ED ---
Allergic Reaction HPI - General Chief complaint: Allergic Reaction Stated complaint: allergic reaction Time Seen by Provider: 08/16/24 10:01 Source: patient, RN notes reviewed Mode of arrival: ambulatory Limitations: no limitations - History of Present Illness Initial Comments: 69-year-old with a history of hypertension presented to the emergency room chief complaint of generalized rash that occurred approximately 2 weeks ago. Patient states that the rash initially occurred on her neck that was pruritic where she went to urgent care a few days later where she was prescribed Medrol Dosepak, topical mupirocin, and oral Bactrim. Patient is been taking medications prescribed and follow-up with her primary care provider approxi-1 week after. Patient states that the rash is continued to worsen and is pruritic and burning. Patient states that she started amlodipine approximately 2 months ago for hypertension. Denies use of new soaps, lotions, detergents, perfumes. - Related Data Previous Rx's Medication Instructions Recorded Levothyroxine Sodium [Synthroid] 50 mcg PO DAILY@0630 #30 tab 06/08/24 amLODIPine [Norvasc] 5 mg PO DAILY #30 tab 06/08/24 Cephalexin [Keflex] 500 mg PO Q6HR #40 cap 08/16/24 predniSONE [Deltasone] 20 mg PO TID #15 tab 08/16/24 Allergies Allergy/AdvReac Type Severity Reaction Status Date / Time No Known Allergies Allergy Verified 08/16/24 09:54 Review of Systems ROS Statement: Those systems with pertinent positive or pertinent negative responses have been documented in the HPI. ROS Other: All systems not noted in ROS Statement are negative. Past Medical History Past Medical History: GI Bleed Additional Past Medical History / Comment(s): PROLAPSED UTERUS History of Any Multi-Drug Resistant Organisms: None Reported Past Surgical History: No Surgical Hx Reported Past Psychological History: No Psychological Hx Reported Smoking Status: Current every day smoker Past Alcohol Use History: None Reported Past Drug Use History: None Reported General Exam Limitations: no limitations General appearance: alert, in no apparent distress Eye exam: Present: normal appearance, PERRL, EOMI. Absent: scleral icterus, conjunctival injection, periorbital swelling Neck exam: Present: normal inspection. Absent: tenderness, meningismus, lymphadenopathy Respiratory exam: Present: normal lung sounds bilaterally. Absent: respiratory distress, wheezes, rales, rhonchi, stridor Cardiovascular Exam: Present: regular rate, normal rhythm, normal heart sounds. Absent: systolic murmur, diastolic murmur, rubs, gallop, clicks GI/Abdominal exam: Present: soft, normal bowel sounds. Absent: distended, tenderness, guarding, rebound, rigid Extremities exam: Present: normal inspection, full ROM, normal capillary refill. Absent: tenderness, pedal edema, joint swelling, calf tenderness Back exam: Present: normal inspection Neurological exam: Present: alert, oriented X3, CN II-XII intact Expanded Type of lesion: Present: rash Distribution of rash: generalized, involves palms/soles (erythematous macular pustular type rash), face (plaque appearance of lesions surroinding the patient's oral mucosa involving the lip but not intraorally) Description of rash: Present: erythematous (erythematous macular rash over the back, warmth to touch) Course Vital Signs 08/16/24 08/16/24 09:50 12:38 Temperature 98.2 F 98.1 F Pulse Rate 91 90 Respiratory 16 16 Rate Blood Pressure 136/93 131/89 O2 Sat by Pulse 100 100 Oximetry Medical Decision Making - Medical Decision Making Was pt. sent in by a medical professional or institution (, PA, FOOT TENDER, urgent care, hospital, or intermediate...) When possible be specific @ -No Did you speak to anyone other than the patient for history (EMS, parent, family, police, friend...)? What history was obtained from this source @ -No Did you review nursing and triage notes (agree or disagree)? Why? @ -I reviewed and agree with nursing and triage notes Were old charts reviewed (outside hosp., previous admission, EMS record, old EKG, old radiological studies, urgent care reports/EKG's, intermediate records)? Report findings @ -No old charts were reviewed Differential Diagnosis (chest pain, altered mental status, abdominal pain women, abdominal pain men, vaginal bleeding, weakness, fever, dyspnea, syncope, headache, dizziness, GI bleed, back pain, seizure, CVA, palpatations, mental health, musculoskeletal)? @ -Contact dermatitis, allergic dermatitis, erythema multiforme, Guy-Enrike syndrome, drug reaction, this list is not all inclusive EKG interpreted by me (3pts min.). @ -None X-rays interpreted by me (1pt min.). @ -None done CT interpreted by me (1pt min.). @ -None done U/S interpreted by me (1pt. min.). @ -None done What testing was considered but not performed or refused? (CT, X-rays, U/S, labs)? Why? @ -None What meds were considered but not given or refused? Why? @ -None Did you discuss the management of the patient with other professionals (professionals i.e. , PA, FOOT TENDER, lab, RT, psych nurse, manager social, warehouse associate, teacher, special forces warrant officer, case specialist)? Give summary @ -No Was smoking cessation discussed for >3mins.? @ -No Was critical care preformed (if so, how long)? @ -No Were there social determinants of health that impacted care today? How? (Homelessness, low income, unemployed, alcoholism, drug addiction, transportation, low edu. Level, literacy, decrease access to med. care, detention, rehab)? @ -No Was there de-escalation of care discussed even if they declined (Discuss DNR or withdrawal of care, Hospice)? DNR status @ -No What co-morbidities impacted this encounter? (DM, HTN, Smoking, COPD, CAD, Cancer, CVA, ARF, Chemo, Hep., AIDS, mental health diagnosis, sleep apnea, morbid obesity)? @ -None Was patient admitted / discharged? Hospital course, mention meds given and route, prescriptions, significant lab abnormalities, going to OR and other pertinent info. @ -Discharge. 69-year-old female generalized rash. Rash as described in physical exam. Concerned that this may be due to patient's medication, amlodipine. Recommend that patient discontinue this medication. She is provided with prescription for Keflex and high-dose steroid and instructed to follow-up as scheduled with retail and promotions coordinator next week for further evaluation. All questions have been answered at bedside strict return parameters discussed with the patient she is verbalized understanding. Case discussed with Dr. Tsang Undiagnosed new problem with uncertain prognosis? @ -No Drug Therapy requiring intensive monitoring for toxicity (Heparin, Nitro, Insulin, Cardizem)? @ -No Were any procedures done? @ -No Diagnosis/symptom? @ -Rash Acute, or Chronic, or Acute on Chronic? @ -Acute Uncomplicated (without systemic symptoms) or Complicated (systemic symptoms)? @ -Uncomplicated Side effects of treatment? @ -No Exacerbation, Progression, or Severe Exacerbation? @ -No Poses a threat to life or bodily function? How? (Chest pain, [place], [place], pneumonia, PE, COPD, DKA, ARF, appy, cholecystitis, CVA, Diverticulitis, Homicidal, Suicidal, threat to staff... and all critical care pts) @ -No Disposition Clinical Impression: Rash Disposition: HOME SELF-CARE Condition: Stable Instructions (If sedation given, give patient instructions): Acute Rash (ED) Additional Instructions: Please return to the Emergency Department if symptoms worsen or any other concerns. Contact your primary care provider's office for referral to dermatology within the next week for further evaluation. Complete full course of steroids and antibiotics as prescribed. Prescriptions: predniSONE [Deltasone] 20 mg PO TID #15 tab Cephalexin [Keflex] 500 mg PO Q6HR #40 cap Is patient prescribed a controlled substance at d/c from ED?: No Referrals: Luz Krause MD [Primary Care Provider] - 1-2 days Time of Disposition: 11:50
[2024-08-16] MEDS: diphenhydrAMINE 50 MG/ML 1 ML VIAL IM STA (11:28)
[2024-08-16 12:40] VITALS: BP 131/89; PULSE 90; TEMP 98.1
== END 2024-08-16 15:40 | disposition home or self-care (01) ==
LOC: EC 09:45
DX: R21 Rash and other nonspecific skin eruption (principal); I10 Essential (primary) hypertension; F17.200 Nicotine dependence, unspecified, uncomplicated; Z79.899 Other long term (current) drug therapy
CPT/HCPCS: 99283